=== PATIENT | male | born 1965 | race Caucasian/White ===

== ENCOUNTER 2019-03-24 07:53 | Observation (INO) | payer BC, OTHER ==
[~2019-03-24] VITALS: Ht 170.2 cm; Wt 58.1 kg
[2019-03-24] MEDS ORDERED: IBUP-1114 PO (08:02)
[2019-03-24] MEDS ORDERED: NS 500 ML IV ONE (08:15)
[2019-03-24 08:27] LABS: BASO # 0.1 10^3/uL (0.0-0.2); BASO % 0.8 % (0.0-1.0); EOS # 0.2 10^3/uL (0.0-0.5); EOS % 1.6 % (0.0-3.0); HEMOGLOBIN 16.6 g/dl (13.5-17.5); LYMPH # 1.5 10^3/uL (1.5-5.0); LYMPH % 13.8 % (24.0-44.0); MEAN CORPUSCULAR HEMOGLOBIN 35.9 pg (27.0-33.0); MEAN CORPUSCULAR HGB CONC 36.1 g/dl (32.0-36.5); MEAN CORPUSCULAR VOLUME 99.6 fl (80.0-96.0); MONO # 0.9 10^3/uL (0.0-0.8); MONO % 8.4 % (0.0-5.0); NEUTROPHILS % 75.1 % (36.0-66.0); PLATELET COUNT, AUTOMATED 235 10^3/uL (150-450); RED BLOOD COUNT 4.62 10^6/uL (4.30-6.10); WHITE BLOOD COUNT 10.6 10^3/uL (4.0-10.0)
[2019-03-24] MEDS ORDERED: ISOVUE-370 76% 100ML VIAL (Q9967) As Ordered ONE (08:33)
[2019-03-24 08:37] LABS: INR 0.96; PROTHROMBIN TIME 12.5 SECONDS (11.8-14.0)
[2019-03-24 08:38] LABS: PARTIAL THROMBOPLASTIN TIME 26.4 SECONDS (25.0-38.4)
--- NOTE | 2019-03-24 08:46 | REP ---
Portable chest, 08:17 a.m., single AP view with the patient sitting: There are no comparisons. The lung davis are clear. The cardiac size is normal. The siomara, mediastinum, and skeletal structures are unremarkable. There are surgical clips in the abdominal left upper quadrant. Impression: Negative portable chest. Electronically Signed by Eddie Hou MD 03/24/2019 08:37 A
[2019-03-24 08:57] LABS: ALT/SGPT 16 U/L (12-78); BILIRUBIN,DIRECT < 0.1 MG/DL (0.0-0.2); BILIRUBIN,TOTAL 0.4 MG/DL (0.2-1.0); CPK CREATINE PHOSPHOKINASE 95 U/L (39-308); FREE T4 0.82 NG/DL (0.76-1.46); LIPASE 118 U/L (73-393); TOTAL PROTEIN 6.8 GM/DL (6.4-8.2); TROPONIN I < 0.02 NG/ML (< 0.10)
[2019-03-24 08:59] LABS: CK-MB VALUE MASS 1.2 NG/ML (<3.6); MB/CK RELATIVE INDEX 1.26 (< OR =4)
--- NOTE | 2019-03-24 09:22 | REP ---
CT of the chest with IV contrast , CT pulmonary artery angiography: Comparison is the portable chest performed earlier today. There are no emboli in the pulmonary trunk or central pulmonary arteries. There are no emboli in the pulmonary lobe or segment branches. There are no infiltrates or pleural effusions. There are no masses or nodules. There is no mediastinal, hilar or axillary lymphadenopathy. The thoracic aorta is unremarkable. The cardiac size is normal. There is no pericardial effusion. Impression: There are no pulmonary emboli. Otherwise, negative CT study of the chest. Electronically Signed by Eddie Hou MD 03/24/2019 09:14 A
--- NOTE | 2019-03-24 09:29 | REP ---
CT of the abdomen and pelvis with IV and bowel contrast: There are no comparisons. The patient has history of ruptured spleen. Studies performed. Contiguous with the chest CT this same date. The hepatic parenchyma is homogeneous and unremarkable. The gallbladder and pancreas are unremarkable. Spleen appears normal size, homogeneous and there are perisplenic surgical clips. The adrenals are unremarkable. The kidneys are unremarkable. The abdominal aorta is unremarkable. There is no periaortic adenopathy or mass. There is no bowel distension or obstruction. The bowel is otherwise unremarkable. The mesentery is unremarkable. There is no free fluid. There is no pneumoperitoneum. Pelvis: The appendix and terminal ileum are unremarkable. There is no ascites. There are surgical clips posteriorly on the left. The bladder is unremarkable. The pelvic bowel loops are unremarkable. There is degenerative disc disease in the lumbar spine at L3-4. There are small cyst posteriorly in the iliac wings bilaterally. Impression: There is no free fluid or pneumoperitoneum. The abdominal aorta is unremarkable. Past history of splenic rupture. There are surgical clips adjacent to the spleen. Spleen is otherwise unremarkable. There are surgical clips posteriorly in the pelvis on the left. No bowel distension or obstruction. Solid organs are unremarkable. Otherwise, negative CT of the abdomen and pelvis. Electronically Signed by Eddie Hou MD 03/24/2019 09:21 A
--- NOTE | 2019-03-24 09:48 | REP ---
CT STUDY OF THE BRAIN WITHOUT CONTRAST: HISTORY: Near-syncope, headache, diaphoresis. No comparison study. CT FINDINGS: Digital preliminary meteorology teacher radiograph is unremarkable. Bone window settings demonstrate an intact bony calvarium. There is partial opacification of the right mid ethmoid air cells consistent with a mild sinusitis changes. No intraorbital abnormality is appreciated. On soft tissue window settings, the lateral, third, and fourth ventricles are normal in size and position. Colindres-white differentiation pattern is normal above and below the tentorium. There is no evidence of intracranial hemorrhage. No mass, infarct, or extra-axial fluid collection is seen. No midline shift is observed. IMPRESSION: Mild right ethmoid paranasal sinus disease. Otherwise negative noncontrast head CT. Electronically Signed by Ibrahima Levy MD 03/24/2019 10:00 A
[2019-03-24] MEDS ORDERED: IBUP200C25 PO (11:05)
[2019-03-24] MEDS ORDERED: IBUPROFEN 200 MG TAB PO PRN (12:00)
[2019-03-24 13:10] LABS: CHOLESTEROL LEVEL 211 MG/DL (<200); CHOLESTEROL RISK RATIO 3.296 (<5); HDL CHOLESTEROL 64 MG/DL (>40); LDL CHOLESTEROL 123 MG/DL (<100); NON-HDL-C 147 MG/DL; TRIGLYCERIDES LEVEL 118 MG/DL (<150); TROPONIN I < 0.02 NG/ML (< 0.10)
[2019-03-24] MEDS ORDERED: IBUPROFEN 400 MG TAB PO PRN (15:45)
[2019-03-24 15:47] VITALS: BP 117/63
[2019-03-24 20:00] VITALS: BP 141/67
--- NOTE | 2019-03-24 21:30 | ECGEPIP ---
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
[2019-03-25] VITALS: BP 138/70
[2019-03-25 04:00] VITALS: BP 132/77
[2019-03-25 05:38] LABS: HEMATOCRIT 45.4 % (42.0-52.0); HEMOGLOBIN 15.9 g/dl (13.5-17.5); PLATELET COUNT, AUTOMATED 234 10^3/uL (150-450); RED BLOOD COUNT 4.54 10^6/uL (4.30-6.10); WHITE BLOOD COUNT 8.8 10^3/uL (4.0-10.0)
[2019-03-25 05:59] LABS: BLOOD UREA NITROGEN 15 MG/DL (7-18); CALCIUM LEVEL 9.2 MG/DL (8.5-10.1); CARBON DIOXIDE LEVEL 25 MEQ/L (21-32); CHLORIDE LEVEL 105 MEQ/L (98-107); CREATININE FOR GFR 0.83 MG/DL (0.70-1.30); GLOMERULAR FILTRATION RATE > 60.0 (>56); GLUCOSE, FASTING 87 MG/DL (70-100); POTASSIUM SERUM 4.2 MEQ/L (3.5-5.1); SODIUM LEVEL 138 MEQ/L (136-145)
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
[2019-03-25 08:00] VITALS: BP 132/68
[2019-03-25] MEDS ORDERED: NICOTINE 21MG/24HR 1 EA TRANSDERMAL TD SCH (09:00)
--- NOTE | 2019-03-25 11:34 | DS.PDOC ---
Discharge Summary General Date of Admission Mar 24, 2019 at 07:54 Date of Discharge 03/25/2019 Attending Physician: VITO HERCULES MD Discharge Summary PROCEDURES PERFORMED DURING STAY: None ADMITTING DIAGNOSES: 1. Presyncope DISCHARGE DIAGNOSES: 1. Presyncope undifferentiated 2. Tobacco abuse disorder COMPLICATIONS/CHIEF COMPLAINT: Syncope. HISTORY OF PRESENT ILLNESS: 53-year-old gentleman current smoker with a greater than 20 pack year history, a remote prior history of subjective palpitations s/p unremarkable event monitor results (per patient) and a family history of familial coronary artery disease with both his father and paternal grandfather dying from complications of heart disease in their fifth and sixth decades of life who presented with presyncope experienced after getting up from a chair while eating breakfast that was transient and resolved wit rest without loss of consciousness, chest pain, shortness or breath, headache, vision changes or dizziness or vertigo. The patient described that he was sitting at his breakfast counter in his kitchen watching the news on television and as he stood up from the stool he was sitting on and took one step he immediately became lightheaded and developed flushness and experienced nausea without emesis. He immediately sat down and rested his head on the counter, he assumes for 7-8 minutes with resolution of his symptoms. Once his symptoms had resolved, the patient proceeded to walk to the bathroom. After using the bathroom and getting up from the toilet, the patient once again experienced lightheadedness, became diaphoretic and had an episode of nausea and felt like he was going to pass out. He immediately went and sat down on the counter and once his symptoms resolved he came to the emergency room to be evaluated. HOSPITAL COURSE: In the ED, he was hemodynamically stable, denied any chest discomfort or previous history of syncopal events. He reported that ~15 years ago he had episodes of subjective palpitations and was told to wear an event monitor which he did, however he states that the event monitor never showed that he was having any arrhythmias. He has not been started on any medications recently. His work up revealed normal orthostatic vital signs, an EKG with NSR, negative troponins, normal electrolytes, non contrast CT head without abnormalities, CTA chest without PE or abnormalities, CT abdomen and pelvis without abnormalities, unremarkable CXR and telemetry did not reveal any ectopy. While he has been in the hospital, his symptoms have not recurred and he will now be discharged home with referral to outpatient cardiology for follow up. Of note, we discussed smoking cessation and the increased health risks but patient declined the patch or other cessation aides at this time. DISCHARGE MEDICATIONS: Please see below. ALLERGIES: Please see below. PHYSICAL EXAMINATION ON DISCHARGE: VITAL SIGNS: Please see below. General: NAD HEENT: NCAT, EOMI, PERRLA, anicteric, no pallor. Pulm: CTAB, without rales, wheezing or rhonchi. Heart: RRR, S1, S2, no audible murmurs, rubs or gallops. Abdomen: scaphoid, normoactive bowel sounds, nontender, nondistended, no palpable organomegaly. Extremities: WWP, no cyanosis, clubbing or edema, 2+ DP pulses Neuro: CN 2 -12 grossly intact without any focal neurologic deficits Psych: AO x3, normal affect LABORATORY DATA: Please see below. IMAGIN03/24/2019: CT of the abdomen and pelvis with IV and bowel contrast: The patient has history of ruptured spleen. Studies performed. Contiguous with the chest CT this same date. The hepatic parenchyma is homogeneous and unremarkable. The gallbladder and pancreas are unremarkable. Spleen appears normal size, homogeneous and there are perisplenic surgical clips. The adrenals are unremarkable. The kidneys are unremarkable. The abdominal aorta is unremarkable. There is no periaortic adenopathy or mass. There is no bowel distension or obstruction. The bowel is otherwise unremarkable. The mesentery is unremarkable. There is no free fluid. There is no pneumoperitoneum. Pelvis: The appendix and terminal ileum are unremarkable. There is no ascites. There are surgical clips posteriorly on the left. The bladder is unremarkable. The pelvic bowel loops are unremarkable. There is degenerative disc disease in the lumbar spine at L3-4. There are small cyst posteriorly in the iliac wings bilaterally. Impression: There is no free fluid or pneumoperitoneum. The abdominal aorta is unremarkable. Past history of splenic rupture. There are surgical clips adjacent to the spleen. Spleen is otherwise unremarkable. There are surgical clips posteriorly in the pelvis on the left. No bowel distension or obstruction. Solid organs are unremarkable. Otherwise, negative CT of the abdomen and pelvis. 03/24/2019: CT of the chest with IV contrast , CT pulmonary artery angiography: There are no emboli in the pulmonary trunk or central pulmonary arteries. There are no emboli in the pulmonary lobe or segment branches. There are no infiltrates or pleural effusions. There are no masses or nodules. There is no mediastinal, hilar or axillary lymphadenopathy. The thoracic aorta is unremarkable. The cardiac size is normal. There is no pericardial effusion. Impression: There are no pulmonary emboli. Otherwise, negative CT study of the chest. 03/24/2019: CT STUDY OF THE BRAIN WITHOUT CONTRAST: CT FINDINGS: Digital preliminary diet consultant radiograph is unremarkable. Bone window settings demonstrate an intact bony calvarium. There is partial opacification of the right mid ethmoid air cells consistent with a mild sinusitis changes. No intraorbital abnormality is appreciated. On soft tissue window settings, the lateral, third, and fourth ventricles are normal in size and position. Colindres-white differentiation pattern is normal above and below the tentorium. There is no evidence of intracranial hemorrhage. No mass, infarct, or extra-axial fluid collection is seen. No midline shift is observed. IMPRESSION: Mild right ethmoid paranasal sinus disease. Otherwise negative noncontrast head CT. 03/24/2019: Chest X Ray Negative portable chest. PROGNOSIS: Good ACTIVITY: As tolerated DIET: Regular diet DISCHARGE PLAN: Home with cardiology outpatient referral for completion of pre syncope work up, perhaps an event monitor. DISPOSITION: Home DISCHARGE INSTRUCTIONS: 1. Please follow up with your PCP within 10 days of discharge. I have referred you to be examined by a seafood and service meat manager as an outpatient to investigate your near fainting spell and they may choose to give you an event monitor that would record any rhythm irregularities that may have caused your near fainting spell. ITEMS TO FOLLOWUP ON ON OUTPATIENT: 1.Presyncope - PCP follow up and cardiology outpatient referral (Spoke with Dr. Concepcion who suggested outpatient referral) DISCHARGE CONDITION: Good TIME SPENT ON DISCHARGE: Greater than 30 minutes. Vital Signs/I&Os Vital Signs Date Time Temp Pulse Resp B/P (MAP) Pulse Ox O2 Delivery O2 Flow Rate FiO2 03/25/19 08:00 97.6 78 17 132/68 (89) 98 03/24/19 15:21 Room Air I&O- Last 24 Hours up to 6 AM 03/25/19 05:59 Intake Total 1300 ml Output Total 1050 ml Balance 250 ml Laboratory Data Labs 24H Laboratory Tests 2 03/24/19 12:34: Troponin I < 0.02, Triglycerides Level 118, LDL Cholesterol 123H, Total Ch olesterol 211H, Non-HDL Cholesterol (LDL + VLDL) 147, Total HDL Cholesterol 64, Cholesterol/HDL Ratio 3.296 03/25/19 05:22: Nucleated Red Blood Cells % (auto) 0.0, Anion Gap 8, Glomerular Filtration Rate > 60.0, Blood Urea Nitrogen 15, Creatinine 0.83, Sodium Level 138, Potassium Level 4.2, Chloride Level 105, Carbon Dioxide Level 25, Calcium Level 9.2 CBC/BMP Laboratory Tests 03/25/19 05:22 Red Blood Count 4.54, Mean Corpuscular Volume 100.0 H, Mean Corpuscular Hemoglobin 35.0 H, Mean Corpuscular Hemoglobin Concent 35.0, Red Cell Distribution Width 13.5, Calcium Level 9.2 Microbiology Microbiology 03/24/19 Blood Culture - Preliminary, Resulted No growth after 24 hours . All specim... 03/24/19 Blood Culture - Preliminary, Resulted No growth after 24 hours . All specim... Discharge Medications Scheduled PRN Ibuprofen (Ibuprofen) 200 Mg Capsule, 400 MG PO Q8H PRN for PAIN, (Reported) Allergies Coded Allergies: codeine (Verified Allergy, Unknown, tongue swelling, 03/24/19) VITO HERCULES MD Mar 25, 2019 11:27
[2019-03-25 12:00] VITALS: BP_SYST 132
[2019-03-26] MEDS ORDERED: FLUBLOK(EGG FREE)(QUAD)INFLUENZA VACC 0.5ML SYRINGE (90682)18YRS&OLDER IM ONE (09:00)
--- NOTE | 2019-03-26 19:03 | ECHO ---
DATE OF PROCEDURE: 03/25/2019 AGE: 53 GENDER: Male HEIGHT: 67 inches WEIGHT: 145 pounds BODY SURFACE AREA: 1.77 m2 PATIENT LOCATION: Inpatient, PCU, room 3218 REFERRING PHYSICIAN: Jose R Meyer MD INDICATION: Syncope. 2-D MEASUREMENTS: RV: 3.0 cm LV: 4.1 cm Septum: 0.9 cm Posterior wall: 0.9 cm Aortic root: 2.8 cm LA: 2.6 cm LVEF: 75% DOPPLER MEASUREMENTS: AV: 1.1 m/s LVOT: 1.0 m/s LVOT diameter: 2.0 cm MV-E: 84, A: 69, EA ratio: 1.2 Early mitral deceleration time: 215 ms E prime: 8.1, A prime: 10, E/E prime ratio: 10.4 PV: 0.95 m/s Pulmonary artery acceleration time: 140 ms PASP: 24 mmHg IVC: 1.4 cm COMMENTS Normal sinus rhythm without intraventricular conduction disturbance. M-mode and two-dimensional echocardiography was performed with pulsed, continuous wave, color flow and tissue Doppler studies. Normal left ventricular size, wall thickness and hyperkinetic wall motion. Normal left atrial size and Doppler assessment of LV diastolic function and estimated mean left atrial pressure. Normal right heart chamber sizes and motion and estimated pulmonary arterial pressure. Normal appearing and functioning valvular structures. Normal aortic root size. No apparent intracardiac mass or pericardial effusion. Unable to detect a structural or functional abnormality to account for the patient's syncopal spell.
== END 2019-03-25 14:20 | disposition home or self-care (01) ==
LOC: EDBD 07:53 → M ED 07:53 → M ED INP 07:54 → M PCU 15:28
PROVIDERS: ADMIT Internal Medicine; ATTEND Internal Medicine
DX: R55 Syncope and collapse (principal); F17.210 Nicotine dependence, cigarettes, uncomplicated
CPT/HCPCS: 36415; 70450; 71045; 71275; 74177; 80047; 80048; 80061; 80076; 82550; 82553; 83690; 84439; 84443; 84484; 85025; 85027; 85610; 85730; 87040; 93005; 93041; 93306; 94760; 96360; 99285; Q9967

== ENCOUNTER → 2019-04-28 | Outpatient (CLI) | payer BC ==
[~2019-04-28] MED LIST: IBUP-1114 PO; IBUP200C25 PO
--- NOTE | 2019-04-29 08:46 | REP ---
Clinical: Stenosis . Technique: Colindres scale and color Doppler evaluation using linear high frequency transducer Findings: Two-dimensional colindres scale and color images demonstrate small amount of atheromatous plaque at the carotid bulbs with laminar flow and no appreciable narrowing. Color Doppler interrogation demonstrates normal arterial wave patterns and velocities with no significant spectral broadening. Normal flow direction is appreciated in the bilateral vertebral arteries. RIGHT (cm/s) LEFT (cm/s) ICA peak systolic velocity 83.4 83.5 ICA diastolic velocity 30.7 31.5 ECA peak systolic velocity 97.7 104.0 CCA peak systolic velocity 83.8 111.8 ICA/CCA ratio 1.0 0.75 Impression: No hemodynamically significant areas of narrowing or stenosis appreciated. Based on set standards narrowing falls within the normal/less than 50% range. Electronically Signed by Mike Carlos MD 04/29/2019 08:37 A
== END ==
LOC: M RAD 17:40
PROVIDERS: ATTEND Internal Medicine Cardiovascular Disease
DX: I65.23 Occlusion and stenosis of bilateral carotid arteries (principal)

== ENCOUNTER → 2019-10-28 | Outpatient (CLI) | payer BC ==
[~2019-10-28] MED LIST changes: +ISOVUE-370 76% 100ML VIAL As Ordered ONE
--- NOTE | 2019-10-28 13:54 | REP ---
SOFT-TISSUE CT STUDY OF THE NECK WITH IV CONTRAST: HISTORY: History of malignancy of the left tongue and soft palate, squamous cell carcinoma status post resection in 2015. Complaint of pain. Rule out recurrence. Dysphasia. CT CONTRAST DOSE: 75 mL of intravenous Isovue 370. No comparison soft-tissue neck imaging is available. CT FINDINGS: Digital frontal and lateral table runner images are unremarkable. The tongue soft tissues are somewhat asymmetric, less anterior tongue tissue on the left than is seen on the right consistent with surgical history. Similarly, the soft palate is asymmetric and deficient on the left postop. I do not see a definite mass in the tongue, floor of mouth, or lateral pharyngeal wall. Peritonsillar soft tissues are unremarkable. There is no evidence of cervical lymphadenopathy. Submandibular glands are normal and symmetric. Parotid glands are symmetric and unremarkable. The nasopharynx is unremarkable. No nasal mass lesion is seen. No intraorbital abnormality is noted. No bony destructive lesion is seen in the mandible or maxillary osseous structures. The visualized intracranial structures are unremarkable. The lung apices are clear. There is extensive vascular calcification in the carotid bifurcations bilaterally. IMPRESSION: Postsurgical changes. No mass or adenopathy seen. Electronically Signed by Ibrahima Levy MD 10/28/2019 05:08 P
== END ==
LOC: M RAD 09:31
PROVIDERS: ATTEND Otolaryngology
DX: R13.10 Dysphagia, unspecified (principal); Z85.818 Personal history of malignant neoplasm of other sites of lip, oral cavity, and pharynx
CPT/HCPCS: 70491; Q9967

== ENCOUNTER → 2019-11-04 | Outpatient (CLI) | payer BC ==
[~2019-11-04] MED LIST changes: +E-Z-GAS II EFFERVESCENT PACKET (SODIUM BICARB./CITRIC ACID/SIMETHICONE) As Ordered ONE; +E-Z-HD 98% w/w 340GM SUSP BTL As Ordered ONE; +E-Z-PAQUE 96% w/w SUSP 176GM BTL As Ordered ONE; -ISOVUE-370 76% 100ML VIAL As Ordered ONE
--- NOTE | 2019-11-04 16:39 | REP ---
Esophagram The procedure was performed under the direct supervision of Dr. Colindres. The images were reviewed with Dr. Colindres. A single view PA chest x-ray is submitted as a coordinating producer film. There is no change compared to a previous chest x-ray performed on 03/24/2019. Liquid barium and gas producing granules were given in the erect position as well as liquid barium in the prone oblique positions in order to perform a double contrast esophagram examination. The oral and pharyngeal stages of deglutition are unremarkable. Note is made of bilateral carotid calcifications. Esophageal transport is prompt and efficient and there is no esophagitis, stricture, mucosal ring or hiatal hernia. There is gastroesophageal reflux demonstrated to the level of the eddie. Impression: There is gastroesophageal reflux demonstrated to the level of the eddie. Otherwise unremarkable double contrast esophagram examination. Note is made of bilateral carotid calcifications. 0.6 minutes of fluoro time was utilized for this procedure. Electronically Signed by JAKI Sevilla 11/04/2019 04:28 P Electronically Signed by Eddie Colindres MD 11/04/2019 04:30 P
== END ==
LOC: M RAD 09:53
PROVIDERS: ATTEND Otolaryngology
DX: R13.10 Dysphagia, unspecified (principal); Z85.818 Personal history of malignant neoplasm of other sites of lip, oral cavity, and pharynx; K21.9 Gastro-esophageal reflux disease without esophagitis

== ENCOUNTER → 2020-01-04 | Outpatient (CLI) | payer BC ==
[~2020-01-04] MED LIST changes: -E-Z-GAS II EFFERVESCENT PACKET (SODIUM BICARB./CITRIC ACID/SIMETHICONE) As Ordered ONE; -E-Z-HD 98% w/w 340GM SUSP BTL As Ordered ONE; -E-Z-PAQUE 96% w/w SUSP 176GM BTL As Ordered ONE; +OMEP40CA97 PO
== END ==
LOC: M LABSMTC 11:04
PROVIDERS: ATTEND Anesthesiology
DX: Z03.818 Encounter for observation for suspected exposure to other biological agents ruled out (principal)
CPT/HCPCS: C9803; U0003

== ENCOUNTER 2020-01-07 12:28 | Day surgery (SDC) | payer BC ==
[~2020-01-07] VITALS: Ht 170.2 cm; Wt 57.6 kg
[~2020-01-07 12:28] MED LIST changes: +LIDOCAINE 2% 100MG/5ML SDV (FOR ANES.) As Ordered ONE; +NS 1,000 ML IV ONE; +propofoL 200 MG/20 ML VIAL As Ordered ONE
[2020-01-07] MEDS ORDERED: fentaNYL 100 MCG/2 ML INJECTION (J3010) As Ordered ONE (14:03)
[2020-01-07] MEDS ORDERED: propofoL 200 MG/20 ML VIAL As Ordered ONE (14:16)
[2020-01-07] MEDS ORDERED: PHENYLephrine HCL 500 MCG/5 ML (100MCG/ML) SYRINGE (J2370) As Ordered ONE (14:22)
--- NOTE | 2020-01-07 14:52 | ROOR ---
Patient Name: Tam Jordan Procedure Date: 01/07/2020 1:40 PM Date of : 1965 Age: 54 Room: [facility] Gender: Male Note Status: Finalized Procedure: Upper GI endoscopy Indications: Heartburn, Suspected gastro-esophageal reflux disease Providers: Rickie Moralez MD Referring MD: ALEX Fontenot Requesting Provider: Medicines: Monitored Anesthesia Care Complications: No immediate complications. Procedure: Pre-Anesthesia Assessment: - Prior to the procedure, a History and Physical was performed, and patient medications and allergies were reviewed. The patient is competent. The risks and benefits of the procedure and the sedation options and risks were discussed with the patient. All questions were answered and informed consent was obtained. Patient identification and proposed procedure were verified by the physician, the nurse and the anesthesiologist in the procedure room. Mental Status Examination: alert and oriented. Airway Examination: normal oropharyngeal airway and neck mobility. Respiratory Examination: clear to auscultation. CV Examination: normal. Prophylactic Antibiotics: The patient does not require prophylactic antibiotics. Prior Anticoagulants: The patient has taken no previous anticoagulant or antiplatelet agents. ASA Grade Assessment: II - A patient with mild systemic disease. After reviewing the risks and benefits, the patient was deemed in satisfactory condition to undergo the procedure. The anesthesia plan was to use monitored anesthesia care (MAC). Immediately prior to administration of medications, the patient was re-assessed for adequacy to receive sedatives. The heart rate, respiratory rate, oxygen saturations, blood pressure, adequacy of pulmonary ventilation, and response to care were monitored throughout the procedure. The physical status of the patient was re-assessed after the procedure. The Endoscope was introduced through the mouth, and advanced to the second part of duodenum. The upper GI endoscopy was accomplished without difficulty. The patient tolerated the procedure well. Findings: LA Grade A (one or more mucosal breaks less than 5 mm, not extending between tops of 2 mucosal folds) esophagitis with no bleeding was found in the distal esophagus. Biopsies were taken with a cold forceps for histology. Verification of patient identification for the specimen was done by the physician and nurse using the patient's name, date and medical record number. Estimated blood loss was minimal. Scattered mild inflammation characterized by erythema and granularity was found in the gastric antrum. Biopsies were taken with a cold forceps for Helicobacter pylori testing. The duodenal bulb and second portion of the duodenum were normal. Noted a small polypoid tissue in posterior oropharynx. Impression: - LA Grade A reflux esophagitis. Rule out Chan's esophagus. Biopsied. - Gastritis. Biopsied. - Normal duodenal bulb and second portion of the duodenum. - Noted a small polypoid tissue in posterior oropharynx. Recommendation: - Patient has a contact number available for emergencies. The signs and symptoms of potential delayed complications were discussed with the patient. Return to normal activities tomorrow. Written discharge instructions were provided to the patient. - High fiber diet. - Continue present medications. - Await pathology results. - Follow an antireflux regimen. - Refer to an ENT specialist at appointment to be scheduled. - Telephone GI clinic for pathology results in 1 week. - Return to primary care physician. Rickie Moralez MD Rickie Moralez MD 01/07/2020 2:52:09 PM Electronically signed by Rickie Moralez MD Number of Addenda: 0 Note Initiated On: 01/07/2020 1:40 PM Estimated Blood Loss: Estimated blood loss was minimal.
--- NOTE | 2020-01-07 14:59 | ROOR ---
Patient Name: Tam Jordan Procedure Date: 01/07/2020 1:41 PM Date of : 1965 Age: 54 Room: [facility] Gender: Male Note Status: Finalized Procedure: Colonoscopy Indications: Screening for colorectal malignant neoplasm Providers: Rickie Moralez MD Referring MD: ALEX Fontenot Requesting Provider: Medicines: Monitored Anesthesia Care Complications: No immediate complications. Procedure: Pre-Anesthesia Assessment: - Prior to the procedure, a History and Physical was performed, and patient medications and allergies were reviewed. The patient is competent. The risks and benefits of the procedure and the sedation options and risks were discussed with the patient. All questions were answered and informed consent was obtained. Patient identification and proposed procedure were verified by the physician, the nurse and the anesthesiologist in the procedure room. Mental Status Examination: alert and oriented. CV Examination: normal. Prophylactic Antibiotics: The patient does not require prophylactic antibiotics. Prior Anticoagulants: The patient has taken no previous anticoagulant or antiplatelet agents. ASA Grade Assessment: II - A patient with mild systemic disease. After reviewing the risks and benefits, the patient was deemed in satisfactory condition to undergo the procedure. The anesthesia plan was to use monitored anesthesia care (MAC). Immediately prior to administration of medications, the patient was re-assessed for adequacy to receive sedatives. The heart rate, respiratory rate, oxygen saturations, blood pressure, adequacy of pulmonary ventilation, and response to care were monitored throughout the procedure. The physical status of the patient was re-assessed after the procedure. The Colonoscope was introduced through the anus and advanced to the terminal ileum, with identification of the appendiceal orifice and IC valve. The colonoscopy was performed without difficulty. The patient tolerated the procedure well. The quality of the bowel preparation was fair. The terminal ileum, ileocecal valve, appendiceal orifice, and rectum were photographed. Scope insertion time was 5 minutes. Scope withdrawal time was 12 minutes. The total duration of the procedure was 20 minutes. Findings: The perianal and digital rectal examinations were normal. The terminal ileum appeared normal. Many sessile polyps were found in the recto-sigmoid colon, descending colon, transverse colon, ascending colon and cecum. The polyps were 4 to 15 mm in size. These polyps were removed with a hot snare. Resection and retrieval were complete. Verification of patient identification for the specimen was done by the physician and nurse using the patient's name, date and medical record number. Estimated blood loss was minimal. Non-bleeding external and internal hemorrhoids were found during endoscopy. The hemorrhoids were medium-sized. Impression: - Preparation of the colon was fair. - The examined portion of the ileum was normal. - Many 4 to 15 mm polyps at the recto-sigmoid colon, in the descending colon, in the transverse colon, in the ascending colon and in the cecum, removed with a hot snare. Resected and retrieved. - Non-bleeding external and internal hemorrhoids. Recommendation: - Patient has a contact number available for emergencies. The signs and symptoms of potential delayed complications were discussed with the patient. Return to normal activities tomorrow. Written discharge instructions were provided to the patient. - High fiber diet. - Continue present medications. - Miralax 1 capful (17 grams) in 8 ounces of water PO daily for 3 days. - Await pathology results. - Repeat colonoscopy in 3 months because the bowel preparation was suboptimal and for surveillance of multiple polyps. - Telephone GI clinic for pathology results in 2 weeks. - Return to GI clinic in 3 months. - Return to primary care physician. Rickie Moralez MD Rickie Moralez MD 01/07/2020 2:59:03 PM Electronically signed by Rickie Moralez MD Number of Addenda: 0 Note Initiated On: 01/07/2020 1:41 PM Estimated Blood Loss: Estimated blood loss was minimal.
[2020-01-07 15:16] VITALS: BP 196/96
[2020-02-20] MEDS ORDERED: MAGICMW SSP (10:25)
[2020-03-30] MEDS ORDERED: OMEP-218 PO (13:07)
[2020-03-30] MEDS ORDERED: HYDR-3713 (13:10)
[2020-04-13] MEDS ORDERED: ONDA8TAB8 PO (07:52)
[2020-04-13] MEDS ORDERED: PROC10TA4 PO (07:52)
[2020-04-14] MEDS ORDERED: HYDR-3713 PO (10:26)
[2020-04-20] MEDS ORDERED: ONDA8TAB8 PO (11:23)
[2020-04-20] MEDS ORDERED: PROC10TA4 PO (11:24)
[2020-05-03] MEDS ORDERED: FLUC10TA PO (10:12)
[2020-05-04] MEDS ORDERED: NYST50SS SS (11:10)
[2020-05-12] MEDS ORDERED: HYDR-3713 PO (10:33)
== END 2020-01-07 15:18 | disposition home or self-care (01) ==
LOC: M OPP 12:28
PROVIDERS: ATTEND Internal Medicine Gastroenterology
DX: Z12.11 Encounter for screening for malignant neoplasm of colon (principal); D12.6 Benign neoplasm of colon, unspecified; K64.8 Other hemorrhoids; K21.0 Gastro-esophageal reflux disease with esophagitis; K29.70 Gastritis, unspecified, without bleeding; R12 Heartburn; F17.210 Nicotine dependence, cigarettes, uncomplicated; Z85.810 Personal history of malignant neoplasm of tongue; Z88.5 Allergy status to narcotic agent
CPT/HCPCS: 43239; 45385; 88305; J2370; J3010

== ENCOUNTER → 2020-02-05 | Outpatient (CLI) | payer BC ==
[~2020-02-05] MED LIST changes: +FLUC10TA PO; +HYDR-3713; +HYDR-3713 PO; -LIDOCAINE 2% 100MG/5ML SDV (FOR ANES.) As Ordered ONE; +MAGICMW SSP; -NS 1,000 ML IV ONE; +NYST50SS SS; +OMEP-218 PO; +ONDA8TAB8 PO; +PROC10TA4 PO; -propofoL 200 MG/20 ML VIAL As Ordered ONE
--- NOTE | 2020-03-24 14:33 | ECGEPIP ---
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
== END ==
LOC: M EKG 09:20
PROVIDERS: ATTEND Anesthesiology
DX: Z01.818 Encounter for other preprocedural examination (principal)

== ENCOUNTER → 2020-02-09 | Outpatient (CLI) | payer BC ==
[~2020-02-09] MED LIST changes: +ISOVUE-370 76% 100ML VIAL ONE
== END ==
LOC: M RAD 11:00
PROVIDERS: ATTEND Otolaryngology
DX: R22.1 Localized swelling, mass and lump, neck (principal)
CPT/HCPCS: 70491; Q9967

== ENCOUNTER 2020-02-10 07:55 | Day surgery (SDC) | payer BC ==
[~2020-02-10 07:55] MED LIST changes: -FLUC10TA PO; -HYDR-3713; -HYDR-3713 PO; -ISOVUE-370 76% 100ML VIAL ONE; -MAGICMW SSP; -NYST50SS SS; -OMEP-218 PO; -ONDA8TAB8 PO; -PROC10TA4 PO
[2020-02-10] MEDS ORDERED: dexameTHASONE 4 MG/ML 1ML VIAL (J1100 PER 1MG) ONE (07:58)
[2020-02-10] MEDS ORDERED: SUGAMMADEX SODIUM 500 MG/5 ML VIAL (BRIDION) ONE (07:58)
[2020-02-10] MEDS ORDERED: propofoL 200 MG/20 ML VIAL ONE (07:58)
[2020-02-10] MEDS ORDERED: ACETAMINOPHEN 1000MG 100ML IV BTL (OFIRMEV) (J0131 PER 10MG) ONE (07:58)
[2020-02-10] MEDS ORDERED: LIDOCAINE 2% 100MG/5ML SDV (FOR ANES.) ONE (07:58)
[2020-02-10] MEDS ORDERED: ONDANSETRON 4MG/2ML VIAL ONE (07:58)
[2020-02-10] MEDS ORDERED: ROCURONIUM BROMIDE 50 MG/5 ML VIAL ONE (07:58)
[2020-02-10] MEDS ORDERED: fentaNYL 100 MCG/2 ML INJECTION (J3010) ONE (07:59)
[2020-02-10] MEDS ORDERED: MIDAZOLAM INJ 2MG/2ML VIAL (J2250 PER 1MG) ONE (07:59)
[2020-02-10] MEDS ORDERED: METHYLENE BLUE 0.5% (5MG/ML) 10 ML AMP (PROVAYBLUE) ONE (08:21)
[2020-02-10] MEDS ORDERED: EPINEPHrine 1MG/ML INJ 30ML MD-VIAL ONE (08:21)
[2020-02-10] MEDS ORDERED: ePHEDrine SULFATE 25 MG/5 ML(5MG/ML) SYRINGE ONE (09:07)
[2020-02-10] MEDS ORDERED: PERCOCET 5MG/325MG TAB ONE (10:29)
[2020-02-20] MEDS ORDERED: MAGICMW SSP (10:25)
[2020-03-30] MEDS ORDERED: OMEP-218 PO (13:07)
[2020-03-30] MEDS ORDERED: HYDR-3713 (13:10)
[2020-04-13] MEDS ORDERED: ONDA8TAB8 PO (07:52)
[2020-04-13] MEDS ORDERED: PROC10TA4 PO (07:52)
[2020-04-14] MEDS ORDERED: HYDR-3713 PO (10:26)
[2020-04-20] MEDS ORDERED: ONDA8TAB8 PO (11:23)
[2020-04-20] MEDS ORDERED: PROC10TA4 PO (11:24)
[2020-05-03] MEDS ORDERED: FLUC10TA PO (10:12)
[2020-05-04] MEDS ORDERED: NYST50SS SS (11:10)
[2020-05-12] MEDS ORDERED: HYDR-3713 PO (10:33)
== END 2020-02-10 11:15 | disposition home or self-care (01) ==
LOC: M SDC 07:55
PROVIDERS: ATTEND Otolaryngology
DX: C09.9 Malignant neoplasm of tonsil, unspecified (principal); K21.9 Gastro-esophageal reflux disease without esophagitis; F17.218 Nicotine dependence, cigarettes, with other nicotine-induced disorders; Z88.5 Allergy status to narcotic agent; Z79.899 Other long term (current) drug therapy
CPT/HCPCS: 31536; 88305; 88342; J0131; J1100; J2250; J2405; J3010; Q9968

== ENCOUNTER → 2020-02-20 | Outpatient (CLI) | payer BC ==
[~2020-02-20] MED LIST changes: +FLUC10TA PO; +HYDR-3713; +HYDR-3713 PO; +MAGICMW SSP; +NYST50SS SS; +OMEP-218 PO; +ONDA8TAB8 PO; +PROC10TA4 PO
== END ==
LOC: M ONCR 09:18
PROVIDERS: ATTEND General Practice
DX: C09.9 Malignant neoplasm of tonsil, unspecified (principal)

== ENCOUNTER → 2020-02-24 | Outpatient (CLI) | payer BC ==
--- NOTE | 2020-03-15 11:37 | REP ---
PET CT HISTORY: Squamous cell carcinoma. 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 TECHNIQUE: 56 minutes following the intravenous injection of an 8.36 mCi dose of F18 FDG, PET CT acquisition is acquired from the skull base to the proximal thighs. PET CT FINDINGS: There is asymmetric uptake along the lateral rowland of the pharynx, right more so than left. Maximum standard uptake value in this region on the right is 4.57. Along the hypopharyngeal lateral wall on the right maximum standard uptake value is a little higher, 7.12. This activity is somewhat asymptomatic, but linear in orientation and may be normal variant. There is no evidence of hypermetabolic adenopathy in the neck on either side. Extensive vascular calcification is noted. In the chest, there is no abnormal hilar or mediastinal hypermetabolic aston uptake. There is no abnormal pulmonary parenchymal hypermetabolic uptake. In the abdomen and pelvis, normal hepatic, gastrointestinal, and genitourinary FDG accumulation is seen. 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 There is a focus of uptake along the inferolateral wall of the cecum, which is more avid than the remainder of this patients background gastrointestinal mucosal uptake. There is no evidence of corresponding soft tissue mass on the accompanying CT. Maximum standard uptake value is 7.72 here. No other abdominal or pelvic hypermetabolic activity is seen. Scan is otherwise unremarkable. IMPRESSION: There is asymmetric increased uptake in a linear pattern along the right lateral pharyngeal and hypopharyngeal wall of uncertain significance. A focus of increased uptake is seen in the cecum higher than this patients background gastrointestinal mucosal uptake. Early right colon malignancy cannot be excluded. Otherwise, negative PET CT. ADDENDUM: This study is reviewed in conjunction with a referring radiation oncologist. There is faintly visible aston uptake in a normal sized right anterior jugular lymph node 6 mm in short axis dimension. Maximum standard uptake value in this lymph node is equivocal 2.93. Addendum dictated: MARILEE 02/24/2020 1616 Addendum transcribed: jose 02/29/2020 0935 [id number]
== END ==
LOC: M PLARAD 08:00
PROVIDERS: ATTEND General Practice
DX: C09.9 Malignant neoplasm of tonsil, unspecified (principal)
CPT/HCPCS: 78815; A9552

== ENCOUNTER → 2020-03-28 | Outpatient (CLI) | payer BC | LOC: M LABSMTC 08:19 | PROVIDERS: ATTEND Anesthesiology | DX: Z01.812 Encounter for preprocedural laboratory examination (principal); Z20.828 Contact with and (suspected) exposure to other viral communicable diseases | CPT/HCPCS: C9803; U0003 ==

== ENCOUNTER 2020-03-30 14:02 | Outpatient (RCR) | payer BC ==
[~2020-03-30 14:02] MED LIST changes: -FLUC10TA PO; -HYDR-3713 PO; -NYST50SS SS; -ONDA8TAB8 PO; -PROC10TA4 PO
[2020-04-13] MEDS ORDERED: ONDA8TAB8 PO (07:52)
[2020-04-13] MEDS ORDERED: PROC10TA4 PO (07:52)
[2020-04-14] MEDS ORDERED: HYDR-3713 PO (10:26)
[2020-04-20] MEDS ORDERED: ONDA8TAB8 PO (11:23)
[2020-04-20] MEDS ORDERED: PROC10TA4 PO (11:24)
[2020-05-03] MEDS ORDERED: FLUC10TA PO (10:12)
[2020-05-04] MEDS ORDERED: NYST50SS SS (11:10)
[2020-05-12] MEDS ORDERED: HYDR-3713 PO (10:33)
== END 2020-03-31 ==
LOC: M ONCR 14:02
PROVIDERS: ATTEND General Practice
DX: C09.0 Malignant neoplasm of tonsillar fossa (principal)

== ENCOUNTER 2020-04-30 09:42 | Outpatient (RCR) | payer BC ==
[~2020-04-30 09:42] MED LIST changes: +HYDR-3713 PO; +ONDA8TAB8 PO; +PROC10TA4 PO
[2020-05-03] MEDS ORDERED: FLUC10TA PO (10:12)
[2020-05-04] MEDS ORDERED: NYST50SS SS (11:10)
== END 2020-05-01 ==
LOC: M ONCR 09:42
PROVIDERS: ATTEND General Practice
DX: C09.0 Malignant neoplasm of tonsillar fossa (principal)

== ENCOUNTER → 2020-05-31 | Outpatient (RCR) | payer BC ==
--- NOTE | 2020-05-20 10:34 | RADENCPD ---
Date/Time of Encounter Date of Encounter: May 20, 2020 Time of Encounter: 10:15 Encounter Saw Tam today at his request. He complains of worsening oral pain. On exam he has grade 3 mucositis in the posterior pharynx. No evidence of thrush. He states it is hard to swallow the oxycodone but when he does it is helpful. Therefore I will switch him to liquid oxycodone 10 mg q4h ATC, I encouraged him to take the medication scheduled throughout the day and to take 5-6 ensure clear daily (one between each dose of pain medication) to sustain him. He is nearing completion of his course and these side effects are all anticipated. He agreed with the plan. JAMIL ALONZO MD May 20, 2020 10:34
[~2020-05-31] MED LIST changes: +FLUC10TA PO; +NYST50SS SS; +OXYC-517 PO; +OXYC1SOL3 PO
== END ==
LOC: M ONCR 05-03 09:42
PROVIDERS: ATTEND General Practice
DX: C09.0 Malignant neoplasm of tonsillar fossa (principal)

== ENCOUNTER 2020-06-02 09:42 | Outpatient (RCR) | payer BC | END 2020-07-01 | LOC: M ONCR 09:42 | PROVIDERS: ATTEND General Practice | DX: C09.0 Malignant neoplasm of tonsillar fossa (principal) ==

== ENCOUNTER → 2020-08-23 | Outpatient (CLI) | payer BC ==
[~2020-08-23] MED LIST changes: +FLUC100T PO
--- NOTE | 2020-08-25 15:01 | REP ---
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 COMPARISON: Comparison PET-CT study 24 February 2020.. TECHNIQUE: 1 hour 23 minutes following the intravenous injection of a 15.60 mCi dose of F-18 FDG, three-dimensional PET scintigraphy is acquired from the skull base to the proximal thighs. Triplanar noncontrast CT scanning is acquired through the same anatomic range for attenuation correction, and image registration with scan parameters optimized to minimize radiation exposure to the patient. PET scintigraphy and CT datasets were fused and displayed on a workstation with multiplanar and projection display capability. FINDINGS: In the head and neck soft tissues, the previously noted right anterior cervical lymph node is again seen, 5 mm in short axis dimension, unchanged in size. Minimal FDG accumulation is seen in this lymph node, maximum standard uptake value 2.46. Previously 2.93. Remainder of the previously noted abnormal head and neck hypermetabolic uptake has resolved. Pharyngeal and tonsillar bed FDG accumulation is symmetric and normal. No other aston uptake is seen in the head and neck soft tissues. Bilateral carotid vascular calcification is observed. Today's PET-CT study demonstrates hypermetabolic uptake in a small left kanchan carinal lymph node focus. Maximum standard uptake value is 5.11. The lymph node in question measures 0.7 cm in short axis dimension by 1.3 cm. This hypermetabolic uptake is new compared to the prior study. The lymph node is slightly more prominent. There is less prominent activity in a subcarinal lymph node, maximum SUV value 2.51. There is discernible but non hypermetabolic pulmonary parenchymal uptake in a nodule seen in the left lower lobe. Maximum standard uptake value here is only 1.22 although the nodule is quite small, 3 x 6 mm. The nodule is new when compared with the prior PET-CT study February 24, 2020. No other new pulmonary nodule is appreciated. No other abnormal pulmonary parenchymal FDG accumulation is seen. In the abdomen and pelvis, there are surgical clips adjacent to the spleen. No abnormal hypermetabolic uptake is seen in the abdomen or pelvis. IMPRESSION: 1. Head and neck uptake is improved. There is still discernible uptake in a 5 mm right cervical lymph node, slightly lower SUV 2.46. Head and neck region is otherwise unremarkable. 2. There are new foci of FDG accumulation in the chest with hypermetabolic aston uptake adjacent to the left mainstem bronchus/AP window region of the mediastinum. There is equivocal uptake in a aston focus in the subcarinal region. In addition, there is a new 4 x 6 mm pulmonary nodule in the left lower lobe which shows visible FDG accumulation. <Electronically signed by Jordin Levy > 08/25/20 1310
== END ==
LOC: M PLARAD 09:18
PROVIDERS: ATTEND General Practice
DX: C09.0 Malignant neoplasm of tonsillar fossa (principal)
CPT/HCPCS: 78815; A9552

== ENCOUNTER → 2020-08-27 | Outpatient (CLI) | payer BC ==
--- NOTE | 2020-08-27 11:40 | RADONC ---
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 He completed concurrent chemoradiation 70 Gy in 35 fractions on 06/02/21 he received weekly cisplatin with this. He is seen today following PET-CT which reveals CR in the HN, however there is a concerning new LLL nodule and mediastinal adenopathy requiring further workup. In addition to surveillance, he is also here to receive survivorship care. Diagnosis/Treatment History Oncologic History 2013 left soft palate SCC excised 2014 left tongue SCC excised 2019 developed dysphagia culminating in biopsy of the right tonsil by Dr. Vasquez on 02/10/20 which revealed SCC HPV negative. He underwent PET-CT on 02/24/20 which showed uptake in the right OPX/soft palate and right tonsillar fossa, and a single aston focus in right level II. He underwent definitive chemoradiation 70 Gy in 35 fractions completed 06/02/20 with weekly cisplatin. He had a course complicated by usual mucositis, which was conservatively managed, and thrush. He did not require PEG tube. Recent data: 08/23/20 PET-CT FINDINGS: In the head and neck soft tissues, the previously noted right anterior cervical lymph node is again seen, 5 mm in short axis dimension, unchanged in size. Minimal FDG accumulation is seen in this lymph node, maximum standard uptake value 2.46. Previously 2.93. Remainder of the previously noted abnormal head and neck hypermetabolic uptake has resolved. Pharyngeal and tonsillar bed FDG accumulation is symmetric and normal. No other aston uptake is seen in the head and neck soft tissues. Bilateral carotid vascular calcification is observed. Today's PET-CT study demonstrates hypermetabolic uptake in a small left kanchan carinal lymph node focus. Maximum standard uptake value is 5.11. The lymph node in question measures 0.7 cm in short axis dimension by 1.3 cm. This hypermetabolic uptake is new compared to the prior study. The lymph node is slightly more prominent. There is less prominent activity in a subcarinal lymph node, maximum SUV value 2.51. There is discernible but non hypermetabolic pulmonary parenchymal uptake in a nodule seen in the left lower lobe. Maximum standard uptake value here is only 1.22 although the nodule is quite small, 3 x 6 mm. The nodule is new when compared with the prior PET-CT study February 24, 2020. No other new pulmonary nodule is appreciated. No other abnormal pulmonary parenchymal FDG accumulation is seen. In the abdomen and pelvis, there are surgical clips adjacent to the spleen. No abnormal hypermetabolic uptake is seen in the abdomen or pelvis. IMPRESSION: 1. Head and neck uptake is improved. There is still discernible uptake in a 5 mm right cervical lymph node, slightly lower SUV 2.46. Head and neck region is otherwise unremarkable. 2. There are new foci of FDG accumulation in the chest with hypermetabolic aston uptake adjacent to the left mainstem bronchus/AP window region of the mediastinum. There is equivocal uptake in a aston focus in the subcarinal region. In addition, there is a new 4 x 6 mm pulmonary nodule in the left lower lobe which shows visible FDG accumulation. Survivorship: Test Due Next Last result Notes TSH, T4 6m post-tx, then q1y November 2020 Carotid US q10 y post-tx 2029 Smoking cessation Assess annually if applicable Fall [address] q1y once CR confirmed Pulm workup pending for lung nodule CBC,CMP, Lipids q1y Fall 2020 Interval History Tam is here with his . He was recently fitted for dentures and told by the dentist he has thrush. Has been taking nystatin for this. Rinsing with chlorhexidine. He is eating soft foods, appetite is good, minimal dysphagia, limiting factor has been lack of teeth. He has no neck pain. Some mild tongue pain in recent weeks but not taking pain medication for this. Current Therapy Surveillance Stage [id number] SCC of right tonsil HPV- stage III Social History: Current 1ppd smoker for 30 years Consumes 1-2 beers daily Allergies / Meds Allergies: Coded Allergies: codeine (Verified Allergy, Severe, tongue swelling, 03/30/20) Home Meds Active Scripts Fluconazole (Fluconazole) 100 Mg Tablet, 1 TAB PO DAILY for yeast infection for 21 Days, #22 TAB Take 2 tabs on day 1, then 1 tab daily to complete 21 days Prov:JAMIL ALONZO MD 08/27/20 Ondansetron (Ondansetron Odt) 8 Mg Tab.rapdis, 8 MG PO Q8HP PRN for NAUSEA, #40 TAB 1 Refill Prov:MARIA GUADALUPE PAYAN MD 05/31/20 Oxycodone HCl (Oxycodone HCl) 5 Mg Tablet, 5 MG PO Q4-6HP PRN for painful mucositis radiation MDD 6 tabs, #40 TAB 0 Refills Prov:MARIA GUADALUPE PAYAN MD 05/26/20 Oxycodone HCl (Oxycodone HCl) 5 Mg/5 Ml Solution, 10 ML PO Q4H for mucositis MDD 60ml for 14 Days, #840 ML Prov:JAMIL ALONZO MD 05/20/20 Nystatin (Nystatin Oral Susp) 100,000 Unit/1 Ml Oral.susp, 5 ML SS 5XD for 7 Days, #120 SUSP 3 Refills Prov:MARIA GUADALUPE PAYAN MD 05/04/20 Prochlorperazine Maleate (Prochlorperazine Maleate) 10 Mg Tablet, 10 MG PO Q8HP PRN for NAUSEA, #40 TAB 1 Refill Prov:WILL CLARK MD 04/20/20 Magic Mouthwash (First-Mouthwash Blm) 1 Ea Susp, 15 ML SSP QIDP PRN for MUCOSITIS, #240 ML 5 Refills (Diphenhydramine/maalox/lidocaine 1:1:1) May compound if kit unavailable/not covered by insurance Prov:JAMIL ALONZO MD 02/20/20 Reported Medications Omeprazole (Omeprazole) 20 Mg Capsule.dr, 1 CAP PO DAILY 03/30/20 Discontinued Scripts Fluconazole (Diflucan) 100 Mg Tablet, 100 MG PO ASDIRECTED for 14 Days, #15 TAB Take 200mg 1st day, then 100mg daily for 2 weeks Prov:JAMIL ALONZO MD 05/03/20 Review of Systems Review of Systems Constitutional: Reports: Fatigue; Denies: Chills, Fever Eyes: Denies: Pain, Vision change HEENT: Reports: Sore Throat; Denies: Head Aches, Ear Pain, Dysphagia Skin: Denies: Rash Pulmonary: Denies: Dyspnea, Cough Cardiovascular: Denies: Chest Pain, Palpitations Gastrointestinal: Denies: Nausea, Vomiting, Abdominal Pain Genitourinary: Denies: Dysuria Hematologic: Denies: Bruising Endocrine: Denies: Cold Intolerance Musculoskeletal: Reports: Neck pain; Denies: Back pain Neurological: Denies: Weakness, Numbness Psych: Reports: Mood Normal Physical Examination Vital Signs Ht 67" Wt 122 (from peak 130 lbs) BMI 19 T 98 P 99 RR 18 BP 159/99 O2 99% Pain 0 Fatigue 1 General Exam: Positive: Alert, Cooperative; Negative: No Acute Distress Eye Exam: Positive: PERRLA, Conjunctiva & lids normal, EOMI ENT EXAM: Positive: Mucous membr. moist/pink, Other ENT (Complete oral cavity exam performed: There is florrid thrush on the anterior and dorsal tongue as well as in the buccogingival sulci BL. There are no mucosal lesions or ulceration appreciated. He is edentulous, seuqelae of recent dentrure fitting on mandibular alveoli noted. There are no palpable muscosal, tongue or FOM lesions on bimanual exam. There are post-surgical changes on the ventral tongue. There are no palpable tonsilar, soft palate or tongue base lesions. There is mild trismus. There is preserved laryngeal elevation and crepitus. The BL necks show hyperpigmentation without significant fibrosis. There is no palpable adnopathy in the neck.); Negative: Pharyngeal Edema Neck Exam: Positive: Supple Chest Exam: Positive: Clear to auscultation, Normal air movement Heart Exam: Positive: Rate Normal, Regular Rhythm Abdomen Exam: Positive: Normal bowel sounds, Soft; Negative: Tenderness Extremity Exam: Negative: Edema Skin Exam: Positive: Nl turgor and temperature Neuro Exam: Positive: Normal Gait, Normal Speech, Cranial Nerves 3-12 NL Psych Exam: Positive: Mental status NL Other Physical Findings Laryngoscopy: The patient provided verbal consent to be scoped. Cetacaine was introduced in the right nostril for anesthesia. The scope was inserted but due to copious mucus could not be passed into the nasopharynx. The scope was withdrawn, the patient blew his nose but still felt congested on the right, thus the left nostril was anesthetized and the scope inserted without difficulty to the nasopharynx, the left pharyngeal recess and torus tubarius appeared normal. The scope was passed to the posterior pharyngeal wall which was well hydrated without any adherent mucus. The BL tongue bases were covered in thrush. There are no mucosal lesions. The epiglottis and AE folds are sharp, no blunting, the larynx is freely mobile with phonation, no cord or vestibular lesions. The BL pyriform sinuses were unable to be fully visualized due to pooled secretions. The scope was withdrawn and the patient tolerated the procedure well. Diagnostic and Laboratory Diagnostic Review Radiologic images, relevant labs and pathology reports were personally reviewed and discussed with Mr. Jordan. Assessment and Plan Impression Assessment Mr. 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 He completed concurrent chemoradiation 70 Gy in 35 fractions on 06/02/21 he received weekly cisplatin with this. He is seen today following PET-CT which reveals CR in the HN, however there is a concerning new LLL nodule and mediastinal adenopathy requiring further workup. In addition to surveillance, he is also here to receive survivorship care. He is in complete response in the head and neck on his PET-CT and my exam today. We discussed that no further routine imaging is indicated for the head and neck and that the hallmark of follow up is serial clinical exam. For this I will see him in 3 months time. At that time I will also check TFTs. With respect to the thrush, which is florid despite his compliance with nystatin, I will prescribe 21 days of fluconazole. I have also encouraged him to practice good oral hygiene with salt and soda rinses TID. We also discussed the concerning findings in the lung on PET-CT, which may represent a metachronous second primary NSCLC, in a current smoker, or less likely pulmonary metastasis from his head an neck cancer. I am especially concerned given that the LLL nodule for it's size (<1 cm) is accumulating FDG, there is also an avid AP window node which in this context could be reactive or an early regional aston metastasis from a left sided lung cancer (though the hilar stations appear clear). For further workup I am referring him to Dr Dunne in pulmonology. Performance Status ECOG 0 Plan Follow up in 3 months for ongoing HNC surveillance/survivorship TFTs at next visit Fluconazole 100 mg daily for 21 days Salt and soda rinses TID Referral to Dr. Dunne in pulmonology for evaluation of left lung nodule and lymph nodes Mr. Jordan was encouraged to call with questions or concerns in the interim period. Billing Statement Total time of [54] minutes was spent preparing for the visit [3], obtaining HPI [6], examining the patient [11], reviewing diagnostic tests [10], discussing management options [10], coordinating care [5], and writing this note [9]. JAMIL ALONZO MD Aug 27, 2020 11:29
== END ==
LOC: M ONCR 09:02
PROVIDERS: ATTEND General Practice
DX: C09.0 Malignant neoplasm of tonsillar fossa (principal)

== ENCOUNTER → 2020-09-09 | Outpatient (CLI) | payer BC ==
[2020-09-09 07:38] LABS: BASO # 0.1 10^3/uL (0.0-0.2); BASO % 1.7 % (0.0-1.0); EOS # 0.2 10^3/uL (0.0-0.5); HEMATOCRIT 43.7 % (42.0-52.0); HEMOGLOBIN 15.8 g/dl (13.5-17.5); LYMPH # 0.7 10^3/uL (1.5-5.0); LYMPH % 19.1 % (24.0-44.0); MEAN CORPUSCULAR HGB CONC 36.2 g/dl (32.0-36.5); MEAN CORPUSCULAR VOLUME 99.5 fl (80.0-96.0); MONO # 0.5 10^3/uL (0.0-0.8); MONO % 13.1 % (2.0-8.0); NEUTROPHILS # 2.1 10^3/uL (1.5-8.5); NEUTROPHILS % 59.2 % (36.0-66.0); PLATELET COUNT, AUTOMATED 121 10^3/uL (150-450); RED BLOOD COUNT 4.39 10^6/uL (4.30-6.10); WHITE BLOOD COUNT 3.5 10^3/uL (4.0-10.0)
[2020-09-09 07:41] LABS: BLOOD UREA NITROGEN 3 MG/DL (7-18); CALCIUM LEVEL 9.1 MG/DL (8.5-10.1); CARBON DIOXIDE LEVEL 27 MEQ/L (21-32); CHLORIDE LEVEL 89 MEQ/L (98-107); CREATININE FOR GFR 0.73 MG/DL (0.70-1.30); GLOMERULAR FILTRATION RATE > 60.0 (>56); GLUCOSE, FASTING 75 MG/DL (70-100); SODIUM LEVEL 123 MEQ/L (136-145)
[2020-09-09 07:51] LABS: INR 0.92; PROTHROMBIN TIME 12.5 SECONDS (12.5-14.3)
[2020-09-09 07:52] LABS: PARTIAL THROMBOPLASTIN TIME 30.1 SECONDS (24.2-38.5)
--- NOTE | 2020-09-09 08:28 | REP ---
INDICATION: OTHER NON SPECIFIC ABNORMAL FINDING OF LUNG FIELD-LABS 1ST COMPARISON: 03/24/2019 TECHNIQUE: Axial noncontrast images from the thoracic inlet to the upper abdomen with coronal and sagittal reformations. This CT examination was performed using the following dose reduction techniques: Automated exposure control, adjustment of mA and/or kv according to the patient's size, and use of iterative reconstruction technique. FINDINGS: Lung davis are well aerated and demonstrate very minimal scattered interstitial changes. No acute consolidation, significant nodule, or mass lesion. No pleural effusion. No pneumothorax. Tracheobronchial tree is patent. No significant adenopathy. Atherosclerotic changes to the thoracic aorta and coronary arteries noted without aortic aneurysm or cardiomegaly. No pericardial effusion. Surrounding musculoskeletal structures are intact. IMPRESSION: No acute/significant mediastinal or pleuroparenchymal process. <Electronically signed by Mike Carlos > 09/09/20 [id number]
[2020-09-15 20:17] LABS: ASPERGILLUS FLAVUS ABY Negative (Neg:<1:1); ASPERGILLUS FUMIGATUS ABY Negative (Neg:<1:1); ASPERGILLUS NIGER ABY Negative (Neg:<1:1); BLASTOMYCES ANTIBODY LEVEL Negative (Neg:<1:1); CRYPTOCOCCUS ANTIGEN SER Negative (Negative)
== END ==
LOC: M RAD 06:56
PROVIDERS: ATTEND Internal Medicine Pulmonary Disease
DX: R91.8 Other nonspecific abnormal finding of lung field (principal)

== ENCOUNTER → 2020-09-18 | Outpatient (CLI) | payer BC | LOC: M LABSMTC 10:03 | PROVIDERS: ATTEND Anesthesiology | DX: Z01.812 Encounter for preprocedural laboratory examination (principal); Z20.822 Contact with and (suspected) exposure to COVID-19 ==

== ENCOUNTER 2020-09-22 10:07 | Day surgery (SDC) | payer BC ==
[~2020-09-22] VITALS: Ht 170.2 cm; Wt 53.9 kg
[~2020-09-22 10:07] MED LIST changes: +ALBUTEROL SULFATE 2.5 MG/0.5 ML INH NEB SOLN NEB ONE; +LIDOCAINE 1% MDV 20ML VIAL SQ PRN; +LIDOCAINE 4% INJ 5ML AMP NEB ONE; +LR 1,000 ML IV ONE
[2020-09-22] MEDS ORDERED: dexameTHASONE 4 MG/ML 1ML VIAL (J1100 PER 1MG) As Ordered ONE (10:34)
[2020-09-22] MEDS ORDERED: propofoL 200 MG/20 ML VIAL As Ordered ONE (10:34)
[2020-09-22] MEDS ORDERED: ROCURONIUM BROMIDE 50 MG/5 ML VIAL As Ordered ONE (10:34)
[2020-09-22] MEDS ORDERED: ONDANSETRON 4MG/2ML VIAL As Ordered ONE (10:34)
[2020-09-22] MEDS ORDERED: LIDOCAINE 2% 100MG/5ML SDV (FOR ANES.) As Ordered ONE (10:34)
[2020-09-22] MEDS ORDERED: MIDAZOLAM INJ 2MG/2ML VIAL (J2250 PER 1MG) As Ordered ONE (10:34)
[2020-09-22] MEDS ORDERED: fentaNYL 100 MCG/2 ML INJECTION (J3010) As Ordered ONE (10:35)
[2020-09-22 11:07] LABS: HEMATOCRIT 45.1 % (42.0-52.0); HEMOGLOBIN 16.4 g/dl (13.5-17.5); MEAN CORPUSCULAR HGB CONC 36.4 g/dl (32.0-36.5); MEAN CORPUSCULAR VOLUME 99.1 fl (80.0-96.0); PLATELET COUNT, AUTOMATED 162 10^3/uL (150-450); RED BLOOD COUNT 4.55 10^6/uL (4.30-6.10); WHITE BLOOD COUNT 3.4 10^3/uL (4.0-10.0)
[2020-09-22] MEDS ORDERED: CETACAINE SPRAY 5GM As Ordered ONE (11:09)
[2020-09-22] MEDS ORDERED: EPINEPHrine 1MG/10ML SYRINGE 1.5IN As Ordered ONE (11:09)
[2020-09-22] MEDS ORDERED: THROMBIN SOLN 5,000 UNITS VIAL As Ordered ONE (11:09)
[2020-09-22] MEDS ORDERED: LIDOCAINE 1% SDV 30ML VIAL As Ordered ONE (11:09)
[2020-09-22] MEDS ORDERED: SEVOFLURANE INHAL SOLN 250 ML BTL As Ordered ONE (11:15)
[2020-09-22 11:28] LABS: BLOOD UREA NITROGEN 4 MG/DL (7-18); CALCIUM LEVEL 9.5 MG/DL (8.5-10.1); CARBON DIOXIDE LEVEL 27 MEQ/L (21-32); CHLORIDE LEVEL 91 MEQ/L (98-107); CREATININE FOR GFR 0.65 MG/DL (0.70-1.30); GLOMERULAR FILTRATION RATE > 60.0 (>56); GLUCOSE, FASTING 72 MG/DL (70-100); POTASSIUM SERUM 3.8 MEQ/L (3.5-5.1); SODIUM LEVEL 126 MEQ/L (136-145)
[2020-09-22] MEDS ORDERED: SUGAMMADEX SODIUM 500 MG/5 ML VIAL (BRIDION) As Ordered ONE (12:19)
[2020-09-22] MEDS ORDERED: LR 1,000 ML IV SCH (12:55)
[2020-09-22] MEDS ORDERED: ONDANSETRON 4MG/2ML VIAL IV PRN (12:55)
[2020-09-22] MEDS ORDERED: fentaNYL 100 MCG/2 ML INJECTION (J3010) IV PRN (12:55)
[2020-09-22] MEDS ORDERED: METOCLOPRAMIDE INJ 10MG/2ML VIAL (J2765 PER 1) IV PRN (12:55)
--- NOTE | 2020-09-22 13:07 | REP ---
INDICATION: POST OP IN PACU 4. COMPARISON: 03/24/2019, CT 09/09/2020. TECHNIQUE: SINGLE PORTABLE AP VIEW OF THE CHEST WAS PERFORMED. FINDINGS: There is no acute infiltrate or pneumothorax. The heart mediastinum are within normal limits. Metallic clips are seen beneath the left hemidiaphragm. IMPRESSION: No acute infiltrate or pneumothorax. <Electronically signed by Eddie Colindres > 09/22/20 [id number]
[2020-09-22 14:10] VITALS: BP 143/71
--- NOTE | 2020-09-23 09:17 | ECGEPIP ---
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
--- NOTE | 2020-10-04 08:57 | ROOR ---
Patient Name: Tam Jordan Procedure Date: 09/22/2020 11:17 AM Date of : 1965 Admit Type: Outpatient Age: 54 Note Status: Finalized Attending MD: Alba Benavidez MD Procedure: Bronchoscopy Indications: Left lower lobe nodule, Mediastinal adenopathy, Paratracheal adenopathy Providers: Alba Benavidez MD (Doctor) Referring MD: Hugo Skelton Md (Referring MD) Requesting Physician: Medicines: Cetacaine topical, Lidocaine 4% via nebulizer with Albuterol 2.5 mg, General Anesthesia Complications: No immediate complications. Estimated blood loss: Minimal Procedure: Pre-Anesthesia Assessment: - Prior to the procedure, a History and Physical was performed, and patient medications and allergies were reviewed. The patient's tolerance of previous anesthesia was also reviewed. The risks and benefits of the procedure and the sedation options and risks were discussed with the patient. All questions were answered, and informed consent was obtained. Prior Anticoagulants: The patient has taken no previous anticoagulant or antiplatelet agents. ASA Grade Assessment: II - A patient with mild systemic disease. After reviewing the risks and benefits, the patient was deemed in satisfactory condition to undergo the procedure. - Patient identification and proposed procedure were verified prior to the procedure by the physician, the nurse, the anesthesiologist, the production boring machine operator and the auto brake technician. The procedure was verified in the procedure room. The Bronchoscope was introduced through the mouth, via the endotracheal tube (the patient was intubated for the procedure) and advanced to the tracheobronchial tree of both lungs. The procedure was accomplished without difficulty. The patient tolerated the procedure well. Findings: The endotracheal tube is in good position. The visualized portion of the trachea is of normal caliber. The eddie is sharp. The tracheobronchial tree was examined to at least the first subsegmental level. Bronchial mucosa and anatomy are normal; there was scattered mucosal pitting and webbing. There are no endobronchial lesions, and few mucoid secretions. An endobronchial ultrasound endoscope was utilized in order to assist with fine needle aspiration in the left paratracheal area and in the subcarinal area. Transbronchial needle aspirations of lymph nodes were performed in the left paratracheal area and in the subcarinal area using an Olympus EBUS-TBNA 21 gauge needle and sent for routine cytology and flow cytometry. The procedure was guided by ultrasound. Rapid on site cytopathologist confirmed adequate diagnostic sample with EBUS and so [place] robotic bronchoscopy was not performed to the left lower lobe nodule. Impression: - Left lower lobe nodule - Mediastinal adenopathy - Paratracheal adenopathy - The airway examination was normal. - Endobronchial ultrasound was performed. - A transbronchial needle aspiration was performed. Recommendation: - Await test results. Procedure Code(s): --- Professional --- 38458, Bronchoscopy, rigid or flexible, including fluoroscopic guidance, when performed; with transbronchial needle aspiration biopsy(s), trachea, main stem and/or lobar bronchus(i) 80317, Bronchoscopy, rigid or flexible, including fluoroscopic guidance, when performed; with transendoscopic endobronchial ultrasound (EBUS) during bronchoscopic diagnostic or therapeutic intervention(s) for peripheral lesion(s) (List separately in addition to code for primary procedure[s]) CPT copyright 2019 [employer]. All rights reserved. The codes documented in this report are preliminary and upon multiple wire sawyer review may be revised to meet current compliance requirements. Attending Participation: I personally performed the entire procedure. Alba Benavidez MD 10/04/2020 8:56:24 AM Number of Addenda: 0 Note Initiated On: 09/22/2020 11:17 AM
== END 2020-09-22 14:10 | disposition home or self-care (01) ==
LOC: M SDC 10:07
PROVIDERS: ATTEND Internal Medicine Pulmonary Disease
DX: C77.1 Secondary and unspecified malignant neoplasm of intrathoracic lymph nodes (principal); R91.8 Other nonspecific abnormal finding of lung field; K21.9 Gastro-esophageal reflux disease without esophagitis; Z85.810 Personal history of malignant neoplasm of tongue; Z87.891 Personal history of nicotine dependence; Z92.21 Personal history of antineoplastic chemotherapy; Z92.3 Personal history of irradiation; Z88.5 Allergy status to narcotic agent; Z79.899 Other long term (current) drug therapy
CPT/HCPCS: 31654; 36415; 71045; 80048; 85027; 88173; 88305; 88341; 88342; 93005; J1100; J2250; J2405; J3010; S2900

== ENCOUNTER → 2020-10-04 | Outpatient (CLI) | payer BC ==
[~2020-10-04] MED LIST changes: -ALBUTEROL SULFATE 2.5 MG/0.5 ML INH NEB SOLN NEB ONE; -LIDOCAINE 1% MDV 20ML VIAL SQ PRN; -LIDOCAINE 4% INJ 5ML AMP NEB ONE; -LR 1,000 ML IV ONE; +PROHANCE 279.3MG/ML 15ML VIAL As Ordered ONE
--- NOTE | 2020-10-04 16:24 | REP ---
INDICATION: LUNG CANCER. COMPARISON: None. TECHNIQUE: Axial T1, T2, FLAIR and diffusion-weighted images obtained. Multiplanar T1 pre and postcontrast images obtained. FINDINGS: No acute bleed or infarct. Ventricles, cisterns and sulci within normal limits. No mass effect or midline shift. No abnormal fluid collections. On the FLAIR images, there are a few scattered nonspecific white matter changes of small vessel ischemic disease. Paranasal sinuses and mastoid air cells are clear. On the review of post-contrast images, no definite abnormal enhancement. A focus of questionable abnormal enhancement in the deep left frontal lobe, (image 15 series 701) may also be present on the coronal images, (image 7 series 901). This suspicion is not confirmed on the FLAIR images however as there is no FLAIR hyperintensity clearly identified in this region. IMPRESSION: No definite findings consistent with a history of lung cancer. Questionable focus of abnormal enhancement as described above, given history, could be suspicious for an early metastatic focus. Follow-up recommended. <Electronically signed by Varghese Ye > 10/04/20 [id number]
== END ==
LOC: M RAD 14:02
PROVIDERS: ATTEND General Practice
DX: C34.32 Malignant neoplasm of lower lobe, left bronchus or lung (principal)
CPT/HCPCS: 70553; A9576

== ENCOUNTER → 2020-10-05 | Outpatient (CLI) | payer BC ==
[~2020-10-05] MED LIST changes: +CIPR750T2 PO; -PROHANCE 279.3MG/ML 15ML VIAL As Ordered ONE
--- NOTE | 2020-10-05 12:08 | RADONC ---
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 He completed concurrent chemoradiation 70 Gy in 35 fractions on 06/02/21 he received weekly cisplatin with this. He had a suspicious LLL nodule and mediastinal adenopathy on his response assessment PET- CT from 08/23/20. He underwent EBUS biopsy for this on 09/22/20 and pathology retu rned SCLC. 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 Diagnosis/Treatment History Oncologic History 2013 left soft palate SCC excised 2014 left tongue SCC excised 2019 developed dysphagia culminating in biopsy of the right tonsil by Dr. Vasquez on 02/10/20 which revealed SCC HPV negative. He underwent PET-CT on 02/24/20 which showed uptake in the right OPX/soft palate and right tonsillar fossa, and a single aston focus in right level II. [id number] stage III. He underwent definitive chemoradiation 70 Gy in 35 fractions completed 06/02/20 with weekly cisplatin. He had a course complicated by usual mucositis, which was conservatively managed, and thrush. He did not require PEG tube. 08/23/20 PET-CT showing CR in the HN. 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 Not conclusive for metastases. Survivorship: Test Due Next Last result Notes TSH, T4 6m post-tx, then q1y November 2020 Carotid US q10 y post-tx 2029 Smoking cessation Assess annually if applicable Fall [address] q1y once CR confirmed Treatment for SCLC pending CBC,CMP, Lipids q1y Fall 2020 Interval History Tam is eating and drinking without difficulty. His appetite is good. He has no chest pain. He is not working currently. Current Therapy Chemoradiation pending Stage OPX [id number] stage III SCC (remission) LLL [id number] stage IIIA SCLC (LS) Social History: Current 1ppd smoker for 30 years Consumes 1-2 beers daily Allergies / Meds Allergies: Coded Allergies: codeine (Verified Allergy, Severe, tongue swelling, 09/22/20) Home Meds Reported Medications Omeprazole (Omeprazole) 20 Mg Capsule.dr, 1 CAP PO DAILY 03/30/20 Review of Systems Review of Systems Constitutional: Reports: Fatigue; Denies: Chills, Fever, Weight Loss Eyes: Denies: Pain HEENT: Reports: Post Nasal Drip; Denies: Head Aches, Dysphagia, Sore Throat Skin: Denies: Rash Pulmonary: Denies: Dyspnea, Cough Cardiovascular: Denies: Chest Pain, Palpitations Gastrointestinal: Denies: Nausea, Abdominal Pain Hematologic: Denies: Bruising Endocrine: Denies: Cold Intolerance Musculoskeletal: Denies: Neck pain, Back pain Neurological: Denies: Weakness, Numbness Psych: Reports: Mood Normal Physical Examination Vital Signs Wt 120 lbs T 98 P 96 RR 18 BP 162/92 Pain 0 Fatigue 1 General Exam: Positive: Alert, Cooperative, No Acute Distress Eye Exam: Positive: PERRLA, EOMI ENT EXAM: Positive: Mucous membr. moist/pink, Tongue Midline; Negative: Other ENT (Stable soft palate defect, no mucosal lesions noted. No thrush. No palpable cervical adenopathy. Post radiation fibrosis BL necks) Neck Exam: Positive: Supple Chest Exam: Positive: Clear to auscultation, Normal air movement Heart Exam: Positive: Rate Normal, Regular Rhythm Abdomen Exam: Positive: Soft; Negative: Tenderness Extremity Exam: Negative: Edema Skin Exam: Positive: Nl turgor and temperature Neuro Exam: Positive: Normal Gait, Normal Speech, Cranial Nerves 3-12 NL Psych Exam: Positive: Mental status NL Diagnostic and Laboratory Diagnostic Review Radiologic images, relevant labs and pathology reports were personally reviewed and discussed with Mr. Jordan. Assessment and Plan Impression Assessment Mr. 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 He completed concurrent chemoradiation 70 Gy in 35 fractions on 06/02/21 he received weekly cisplatin with this. He had a suspicious LLL nodule and mediastinal adenopathy on his response assessment PET- CT from 08/23/20. He underwent EBUS biopsy for this on 09/22/20 and pathology returned SCLC. 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 He has LS disease, which has been detected early as an incidental finding on his post chemoradiation PET-CT. MRI head is negative. He has discussed chemotherapy with Dr. Spivey and agreed to proceed in the coming weeks. They have selected carboplatin-based doublet given he had significant myelosuppression with cisplatin previously. I recommend early integration of radiation with cycle 1 of chemotherapy, given the small RT targets, there will be no advantage to starting with cycle 2. I will give 60 Gy in 30 fractions with VMAT due to the proximity of the aston varun en to the esophagus. I will use a 4D simulation approach to limit normal lung dose. We discussed the side effects of thoracic RT including fatigue, pneumonitis and esophagitis. Simulation can occur this week or next. We also reviewed the indication for PCI if post chemotherapy MRI head remains negative, versus MRI surveillance. We will cross that bridge when we come to it. He agreed to proceed. He is scheduled for a FNA of the right neck with Dr. Vasquez tomorrow. I think this is of minimal concern given the PET-CT and small size of the node. If however it returns positive for SCC, I do not think he should undergo immediate resection given the oncologic priority of the SCLC. I will review the findings and discuss with Dr. Vasquez if needed. Performance Status ECOG 0 Plan Concurrent chemoradiation for new LS SCLC Simulation in the next week Will follow up FNA of right neck Will continue clinical surveillance of HNC for now, no additional imaging warranted at this time Mr. Jordan was encouraged to call with questions or concerns in the interim period. Billing Statement Total time of [38] minutes was spent preparing for the visit [3], obtaining HPI [4], examining the patient [4], reviewing diagnostic tests [3], discussing management options [13], coordinating care [3], and writing this note [8]. JAMIL ALONZO MD Oct 05, 2020 12:08
== END ==
LOC: M ONCR 08:51
PROVIDERS: ATTEND General Practice
DX: C09.9 Malignant neoplasm of tonsil, unspecified (principal); C79.31 Secondary malignant neoplasm of brain; R59.9 Enlarged lymph nodes, unspecified; F17.210 Nicotine dependence, cigarettes, uncomplicated

== ENCOUNTER → 2020-10-06 | Outpatient (CLI) | payer BC ==
[~2020-10-06] MED LIST changes: -CIPR750T2 PO; +LIDOCAINE 1% MDV 20ML VIAL As Ordered ONE
[2020-10-06 11:04] VITALS: BP 175/94
--- NOTE | 2020-10-06 18:07 | REP ---
INDICATION: RT NECK MASS. COMPARISON: None. TECHNIQUE: The procedure was performed under the direct supervision of Dr. Colindres. The patient has a history of a 5 mm right cervical lymph node which is hypermetabolic on a previous PET scan performed on 08/23/2020. The risks and benefits of the procedure were explained to the patient and informed consent was obtained. The right cervical lymph node was localized using ultrasound guidance. The skin was prepped and draped in a sterile fashion. 1% lidocaine was used as a local anesthetic. Using ultrasound guidance 4 fine-needle aspirations were obtained using 25 gauge needles. The patient tolerated the procedure well and there were no immediate complications. After the appropriate amount of monitor convalescence the patient was discharged from the department. FINDINGS: None IMPRESSION: Ultrasound-guided right cervical lymph node biopsy <Electronically signed by Devin Santos > 10/06/20 1614 <Electronically signed by Eddie Colindres > 10/06/20 [id number]
== END ==
LOC: M IRPRO 10:22
PROVIDERS: ATTEND Otolaryngology
DX: R59.0 Localized enlarged lymph nodes (principal); C09.9 Malignant neoplasm of tonsil, unspecified

== ENCOUNTER → 2020-10-21 | Outpatient (CLI) | payer BC ==
[~2020-10-21] MED LIST changes: +MIDAZOLAM INJ 2MG/2ML VIAL (J2250 PER 1MG) As Ordered ONE; +ceFAZolin 1GM VIAL (J0690 PER 500MG) As Ordered ONE; +diphenhydrAMINE 50MG/ML VIAL (J1200) As Ordered ONE; +fentaNYL 100 MCG/2 ML INJECTION (J3010) As Ordered ONE
--- NOTE | 2020-10-21 07:09 | IRHP ---
[facility] IR Pre-Procedure H & P General Date of Service: Oct 21, 2020 Procedure: Same Day Surgery Interval History and Physical I have seen the patient and reviewed last H & P performed within 30 days. There is no significant interval change. History of Present Illness Chief Complaint The patient is a 55-year-old male admitted with a reason for visit of Palate.tongue Cancer. PRE-PROCEDURE DIAGNOSIS: Head and neck cancer HEART: normal rate. LUNGS: normal breathing at rest. ASA Classification ASA Classification: III-Severe systemic dis. Mallampati Score: II NPO: Yes Problems with prior sedation: No Obstructive Sleep Apnea: No Plan moderate sedation Allergies Coded Allergies: codeine (Verified Allergy, Severe, tongue swelling, 09/22/20) Home Medications Scheduled Omeprazole (Omeprazole), 1 CAP PO DAILY, (Reported) ELSIE NEWMAN MD Oct 21, 2020 07:09
[2020-10-21 10:10] VITALS: BP 148/80
--- NOTE | 2020-10-22 10:11 | IRPON ---
IR Postoperative Note Date Of Procedure: Oct 21, 2020 Time Of Procedure: 16:00 IR Postoperative Note IR Ultrasound and fluoroscopy guided port placement. IR Ultrasound of the neck. IR Moderate sedation. Clinical indication: Head and neck cancer. Physician: Dr. Sharma. Procedure: The patient was advised of the benefits, risks, and alternatives of the procedure and informed consent was obtained. A time-out was performed with verification of the patient's name, MRN, site of procedure and type of procedure to be performed. The patient was positioned in the supine position on the angiographic table. The site was prepped and draped in the usual sterile fashion. Moderate sedation was performed by the physician including the presence of an independent trained RN who assisted and monitored the patient's level of consciousness and physiologic status. Following the administration of fentanyl and Versed , the physician spent 45 minutes of continuous face to face time with the patient. Ultrasound of the neck reveals a patent and compressible right internal jugular vein. A rehabilitation clerk radiograph reveals no gross abnormality. The neck and anterior chest wall were anesthetized with lidocaine. The right internal jugular vein was accessed using a microintroducer needle under ultrasound guidance, via a lateral approach. An 018 wire was advanced into the superior vena cava, the needle was removed and a microsheath was placed. An Amplatz wire was then passed into the inferior vena cava. An incision at the internal jugular vein access site and anterior chest wall were made using a scalpel. An incision was made at the anterior chest wall. A small pocket was created using a combination of blunt and sharp dissection. A tunneling device was then used to pass the catheter from the pocket to the neck puncture site. An 8- [place] [employer] Smart power port was then positioned in the pocket. The catheter was then measured and cut. The introducer sheath was exchanged for a peel-away sheath. The catheter was passed through the peel-away sheath into the internal jugular vein and the peel-away sheath was removed. The port tip was positioned at the cavoatrial junction. The port was then accessed with a Vargas needle. The port flushes and aspirates well. The puncture site in the neck was closed. The chest wall incision was then closed with 2-0 Vicryl and 4-0 Monocryl. Glue and Steri- Strips were applied. A sterile dressing was then applied. The patient tolerated the procedure well and was returned to the PRU in stable condition. Estimated blood loss: <5 ml. Complications: None. Conclusion: 1. Successful placement of an 8-[place] [employer] Smart power port via the right internal jugular vein. The port is ready for immediate use. 2. Patient to follow up in IR clinic in 2 weeks. Thank you for this referral. ELSIE SHARMA MD Oct 22, 2020 10:11
== END ==
LOC: M IRPRO 06:48
PROVIDERS: ATTEND Radiology Diagnostic Radiology
DX: C05.9 Malignant neoplasm of palate, unspecified (principal); C02.9 Malignant neoplasm of tongue, unspecified; Z88.5 Allergy status to narcotic agent
CPT/HCPCS: 36561; 99152; 99153; C1769; C1788; C1894; J0690; J1200; J1642; J1644; J2250; J3010

== ENCOUNTER → 2020-10-29 | Outpatient (RCR) | payer BC ==
[~2020-10-29] MED LIST changes: -LIDOCAINE 1% MDV 20ML VIAL As Ordered ONE; -MIDAZOLAM INJ 2MG/2ML VIAL (J2250 PER 1MG) As Ordered ONE; -ceFAZolin 1GM VIAL (J0690 PER 500MG) As Ordered ONE; -diphenhydrAMINE 50MG/ML VIAL (J1200) As Ordered ONE; -fentaNYL 100 MCG/2 ML INJECTION (J3010) As Ordered ONE
== END ==
LOC: M ONCR 10-13 14:01
PROVIDERS: ATTEND General Practice
DX: C34.32 Malignant neoplasm of lower lobe, left bronchus or lung (principal)

== ENCOUNTER → 2020-11-16 | Outpatient (POV) | payer BC ==
[~2020-11-16] VITALS: Ht 170.2 cm; Wt 51.3 kg
[~2020-11-16] MED LIST changes: +CIPR750T2 PO
[2020-11-16 08:20] VITALS: BP 150/86
--- NOTE | 2020-11-17 08:33 | IRPN ---
[facility] IR Progress Note IR Progress Note DATE: November 16, 2020 FOLLOW-UP: Status post port placement. Patient states port site feels good. No pain, no fevers, no chills. Patient reports the port has been used without any issues. ON EXAMINATION: Port site appears to be healing well. Dermabond and Steri-Strips are still in place. No redness, tenderness or fluctuance at site. IMPRESSION: Doing well status post port placement. No further follow-up scheduled unless initiated by patient and/or referring provider. Thank you for this referral Allergies Coded Allergies: codeine (Verified Allergy, Severe, tongue swelling, 09/22/20) VS,Fishbone, I+O VS, Fishbone, I+O Vital Signs Date Time Temp Pulse Resp B/P (MAP) Pulse Ox O2 Delivery O2 Flow Rate FiO2 11/16/20 08:20 98.2 95 20 150/86 (107) 100 Room Air ELSIE NEWMAN MD November 17, 2020 08:33
== END ==
LOC: M IRPOV 08:14
PROVIDERS: ATTEND Radiology Diagnostic Radiology
DX: Z45.2 Encounter for adjustment and management of vascular access device (principal)

== ENCOUNTER 2020-11-26 08:46 | Outpatient (RCR) | payer BC ==
--- NOTE | 2020-11-23 10:14 | RADENCPD ---
Date/Time of Encounter Date of Encounter: November 23, 2020 Time of Encounter: 10:13 Encounter Tam is euthyroid per labs from today. Will check TFTs again in survivorship phase of care, next in 6 months. JAMIL ALONZO MD November 23, 2020 10:14
[2020-11-30] MEDS ORDERED: OXYC1SOL3 PO (09:42)
[2020-12-02] MEDS ORDERED: SUCR1ORA PO (15:47)
== END 2020-11-29 ==
LOC: M ONCR 08:46
PROVIDERS: ATTEND General Practice
DX: C34.32 Malignant neoplasm of lower lobe, left bronchus or lung (principal)

== ENCOUNTER → 2020-12-03 | Outpatient (CLI) | payer BC ==
[~2020-12-03] VITALS: Ht 170.2 cm; Wt 49.6 kg
[~2020-12-03] MED LIST changes: +MORP-69 PO; +OMEP40CA4 PO; -OMEP40CA97 PO; +SUCR1ORA PO
[2020-12-03 08:00] VITALS: BP 105/70
== END ==
LOC: M ONCM 07:58
PROVIDERS: ATTEND General Practice
DX: C76.0 Malignant neoplasm of head, face and neck (principal); C02.9 Malignant neoplasm of tongue, unspecified; C34.92 Malignant neoplasm of unspecified part of left bronchus or lung; C77.9 Secondary and unspecified malignant neoplasm of lymph node, unspecified; F17.210 Nicotine dependence, cigarettes, uncomplicated; R13.10 Dysphagia, unspecified; K20.90 Esophagitis, unspecified without bleeding; Z79.899 Other long term (current) drug therapy; Z88.5 Allergy status to narcotic agent; Z92.21 Personal history of antineoplastic chemotherapy; Z92.3 Personal history of irradiation

== ENCOUNTER 2020-12-07 09:00 | Outpatient (RCR) | payer BC ==
--- NOTE | 2020-12-02 15:46 | RADENCPD ---
Date/Time of Encounter Date of Encounter: Dec 02, 2020 Time of Encounter: 15:44 Encounter Tam complains of worsening dysphagia today, has pain with swallowing, oxycodone 5 mg minimally effective, struggling with liquids, also feels reflux symptoms worse. VS WNL I discussed increasing his omeprazole to 40 mg daily as well as doubling the dose of liquid oxycodone from 5 to 10 mg QID PRN tonight, if this is not effective we can consider another agent. I will also prescribe carafate and see if this is covered by insurance, if not then he can do pepto bismol or maalox QID instead. I also will arrange 2L IVF tomorrow for him. JAMIL ALONZO MD Dec 02, 2020 15:46
[2020-12-03 08:00] VITALS: BP 105/70
[2020-12-03] MEDS: NS 1,000 ML IV SCH ×2 (09:07→10:04)
[2020-12-03 10:15] VITALS: BP_SYST 112; BP_SYST 68; BP_DIAS 68
[2020-12-03 11:50] VITALS: BP 127/78
[~2020-12-07] VITALS: Ht 170.2 cm; Wt 49.6 kg
[~2020-12-07 09:00] MED LIST changes: +SODIUM CHLORIDE 0.9% INJ 10 ML SYR IV PRN
[2020-12-21] MEDS ORDERED: OXYC1SOL3 PO ×2 (10:12→13:09)
== END 2020-12-29 ==
LOC: M ONCR 09:00
PROVIDERS: ATTEND General Practice
DX: Z51.0 Encounter for antineoplastic radiation therapy (principal); C34.32 Malignant neoplasm of lower lobe, left bronchus or lung
CPT/HCPCS: 77336; 77386; J1642

== ENCOUNTER → 2021-02-07 | Outpatient (CLI) | payer BC ==
[~2021-02-07] MED LIST changes: -FLUC100T PO; +FLUC100T3 PO; +LIDO2SOL9 PO; +OMEP-173 PO; -OMEP-218 PO; +ONDA8TAB8; +PENT400T47 PO; -PROC10TA4 PO; +PROC10TA5 PO; +PROHANCE 279.3MG/ML 5ML VIAL As Ordered ONE; -SODIUM CHLORIDE 0.9% INJ 10 ML SYR IV PRN; +VITA100020 PO
== END ==
LOC: M RAD 10:36
PROVIDERS: ATTEND General Practice
DX: C34.90 Malignant neoplasm of unspecified part of unspecified bronchus or lung (principal)
CPT/HCPCS: 70553; A9576

== ENCOUNTER → 2021-02-21 | Outpatient (CLI) | payer BC ==
[~2021-02-21] MED LIST changes: +FLUC100T PO; -FLUC100T3 PO; +ISOVUE-370 76% 100ML VIAL As Ordered ONE; -LIDO2SOL9 PO; -OMEP-173 PO; +OMEP-218 PO; +PROC10TA4 PO; -PROC10TA5 PO; -PROHANCE 279.3MG/ML 5ML VIAL As Ordered ONE
--- NOTE | 2021-02-22 08:14 | REP ---
INDICATION: LUNG CA COMPARISON: 09/09/2020 TECHNIQUE: Axial contrast enhanced images from the thoracic inlet to the upper abdomen with coronal and sagittal reformations using 75 ml Isovue [address] intravenous [address] examination was performed using the following dose reduction techniques: Automated exposure control, adjustment of mA and/or kv according to the patient's size, and use of iterative reconstruction technique. FINDINGS: The bilateral lung davis demonstrate minimal biapical and subtle left basilar scarring. The left lower lobe nodule on prior examination is no longer evident and no new pulmonary nodule or mass lesion is appreciated. No consolidation. No effusion. No pneumothorax. Tracheobronchial tree is patent. No obvious adenopathy. Mediastinum demonstrates stable atherosclerotic changes to the thoracic aorta and coronary arteries without aortic aneurysm or cardiomegaly. No pericardial effusion. [id number]-X-[id number] identified with tip in the SVC. Osseous structures are intact and without acute process. Limited upper abdomen demonstrates normal bilateral adrenal glands. IMPRESSION: 1. Left lower lobe nodule on prior examination is no longer evident. No new acute nodule or mass. No consolidation or effusion. No adenopathy. <Electronically signed by Mike Carlos > 02/22/21 [id number]
== END ==
LOC: M RAD 16:20
PROVIDERS: ATTEND Specialist
DX: C34.32 Malignant neoplasm of lower lobe, left bronchus or lung (principal)
CPT/HCPCS: 71260; Q9967

== ENCOUNTER → 2021-04-28 | Outpatient (CLI) | payer BC ==
--- NOTE | 2021-04-28 11:21 | REPVR ---
PROCEDURE INFORMATION: Exam: CT Neck With Contrast Exam date and time: 04/28/2021 10:34 AM Age: 55 years old Clinical indication: Condition or disease; Cancer; Other: Neoplasm oral cavity TECHNIQUE: Imaging protocol: Computed tomography images of the neck with contrast. Radiation optimization: All CT scans at this facility use at least one of these dose optimization techniques: automated exposure control; mA and/or kV adjustment per patient size (includes targeted exams where dose is matched to clinical indication); or iterative reconstruction. Contrast material: ISOVUE 370; Contrast volume: 75 ml; Contrast route: INTRAVENOUS (IV); COMPARISON: 1. PT PET/CT Skull/mid thigh 08/23/2020 11:[address] Neck with contrast 02/09/2020 11:45:08 AM FINDINGS: Nasopharynx: Unremarkable. Oropharynx: There is mild thickening of the soft palate, more pronounced in the midline and to the right of midline. Mild mucosal space thickening is also noted in the right lateral aspect of the oral cavity and oropharynx. Hypopharynx: There is minimal mucosal space thickening within the hypopharynx. Larynx: There is minimal mucosal space thickening within the larynx. This may be related to post treatment changes. Retropharyngeal space: There is trace edema within the retropharyngeal space. Submandibular/Parotid glands: Normal. Glands are normal in size. Thyroid: Normal. No enlarged or calcified nodules. Lymph nodes: Unremarkable. No lymphadenopathy. Trachea: Visualized trachea is unremarkable. Lungs: Mild centrilobular emphysema and scarring is noted in the lung apices. Bones/joints: Unremarkable. No acute fracture. Vasculature: There is approximately 50% stenosis of the right internal carotid artery origin. A follow-up carotid ultrasound is recommended. There is less than 50% stenosis of left carotid bifurcation. Soft tissues: Unremarkable. No significant soft tissue swelling. IMPRESSION: Mild mucosal space thickening within the oral cavity, oropharynx, hypopharynx, and larynx. Minimal retropharyngeal edema is also present. The findings may be the result of prior radiation therapy or post treatment changes. Clinical correlation is recommended. Electronically signed by: Jerardo Henderson On 04/28/2021 11:21:31 AM
== END ==
LOC: M RAD 10:10
PROVIDERS: ATTEND Physician Assistant Medical
DX: D37.09 Neoplasm of uncertain behavior of other specified sites of the oral cavity (principal); R93.0 Abnormal findings on diagnostic imaging of skull and head, not elsewhere classified
CPT/HCPCS: 70491; Q9967

== ENCOUNTER → 2021-05-28 | Outpatient (CLI) | payer BC ==
[~2021-05-28] MED LIST changes: -ISOVUE-370 76% 100ML VIAL As Ordered ONE
== END ==
LOC: M LABSMTC 09:47
PROVIDERS: ATTEND Anesthesiology
DX: Z01.812 Encounter for preprocedural laboratory examination (principal); Z11.52 Encounter for screening for COVID-19

== ENCOUNTER → 2021-06-03 | Outpatient (CLI) | payer BC ==
[~2021-06-03] MED LIST changes: +LIDO2SOL9 PO
--- NOTE | 2021-06-04 17:47 | REP ---
INDICATION: CAROTID STENOSIS COMPARISON: 04/28/2019 TECHNIQUE: Colindres scale and color Doppler evaluation using linear high frequency transducer Findings: FINDINGS: Two-dimensional colindres scale and color images demonstrate significant partially calcified atheromatous plaquing involving the bilateral carotid bulbs and proximal internal carotid arteries. Color Doppler interrogation demonstrates primarily biphasic arterial wave patterns and normal velocities with moderate spectral broadening. Normal flow direction is appreciated in the bilateral vertebral arteries. ICA peak systolic velocity: Right 101.8 cm/s; Left 93.8 cm/s ICA diastolic velocity: Right 31.7 cm/s; Left 34.8 cm/s ECA peak systolic velocity: Right 85.2 cm/s; Left 76.2 cm/s CCA peak systolic velocity: Right 67.4 cm/s; Left 78.7 cm/s ICA/CCA ratio: Right 1.51 cm/s; Left 1.19 cm/s IMPRESSION: Significant partially calcified atherosclerotic changes appear increased from prior examination of 2019. While based on set standards, narrowing is in the less than 50% range, visually narrowing through the bilateral carotid bulbs is suspected to actually be within the 50-69% range. Correlation is recommended and if necessary consider CTA or MRA for more definitive evaluation. <Electronically signed by Mike Carlos > 06/04/21 [id number]
== END ==
LOC: M RAD 12:53
PROVIDERS: ATTEND Otolaryngology
DX: D37.09 Neoplasm of uncertain behavior of other specified sites of the oral cavity (principal); Z85.818 Personal history of malignant neoplasm of other sites of lip, oral cavity, and pharynx

== ENCOUNTER → 2021-06-08 | Day surgery (SDC) | payer BC ==
[~2021-06-08] VITALS: Ht 170.2 cm; Wt 54.8 kg
[~2021-06-08] MED LIST changes: +ACETAMINOPHEN 1000MG 100ML IV BTL (OFIRMEV) (J0131 PER 10MG) As Ordered ONE; +ESMOLOL INJ 100MG/10ML VIAL As Ordered ONE; +LIDOCAINE 2% 100MG/5ML SDV (FOR ANES.) As Ordered ONE; +LIDOCAINE W/EPINEPHRINE 1% 20ML VIAL As Ordered ONE; +LR 1,000 ML IV ONE; +LR 1,000 ML IV SCH; +MIDAZOLAM INJ 2MG/2ML VIAL (J2250 PER 1MG) As Ordered ONE; +ONDANSETRON 4MG/2ML VIAL As Ordered ONE; +ONDANSETRON 4MG/2ML VIAL IV PRN; +PHENYLephrine 500MCG 5ML (100MCG/ML) SYRINGE As Ordered ONE; +ROCURONIUM BROMIDE 50 MG/5 ML VIAL As Ordered ONE; +SUGAMMADEX SODIUM 500 MG/5 ML VIAL (BRIDION) As Ordered ONE; +dexameTHASONE 4 MG/ML 1ML VIAL (J1100 PER 1MG) As Ordered ONE; +fentaNYL 100 MCG/2 ML INJECTION (J3010) As Ordered ONE; +fentaNYL 100 MCG/2 ML INJECTION (J3010) IV PRN; +propofoL 200 MG/20 ML VIAL As Ordered ONE
--- OUTSIDE RECORDS SUMMARY | 2021-06-08 09:12 | CCD | Continuity of Care Document ---
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 AUTM [phone] Central Scheduling AUTM [phone] Rickie Moralez M.D. AUTM [phone] [facility] Rehab - Rehab/PT,,St AUTM [phone] AUTM Unavailable Hguo Skelton M.D. AUTM [phone] Problems Description No Active Problems Social History Type Date Description Comments Sex Unknown ETOH Use 4 A Week Recreational Drug Use Denies Drug Use Tobacco Use Start: Unknown Report Cessation Counseling Was Provided Tobacco Use Start: Unknown End: Patient is a former smoker hx of 1 ppd Smoking Status Reviewed: 03/01/21 Patient is a former smoker hx of 1 ppd Allergies and adverse reactions Active Allergies Criticality Reaction | Severity Comments Date Codeine Unable to assess criticality Tongue Swell ing 10/16/2019 Medications Active Medications SIG Qnty Indications Ordering Provide r Date Ventolin HFA 108(90Base) mcg/Act A erosol 1 puff every 6 hours as needed 8gm Z85.818 Alba Benavidez M.D . 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 60tabs B96.81 Rickie Moralez M.D. 03/22/2020 Immunizations Description No Information Available Vital Signs Date Vital Result Comment 04/25/2021 7:38am Height 67 inches 5'7" Weight 121.12 lb BMI (Body Mass Index) 19.0 kg/m2 [place] Body Weight 148 lb Weight 54.942 kg BSA (Body Surface Area) 1.63 m2 03/01/2021 2:22pm BP Systolic 142 mmHg BP Diastolic 80 mmHg Heart Rate 97 /min O2 % BldC Oximetry 99 % Height 67 inches 5'7" Weight 112.25 lb BMI (Body Mass Index) 17.6 kg/m2 [place] Body Weight 148 lb Weight 50.917 kg BSA (Body Surface Area) 1.58 m2 Results Test Acquired Date Facility Test Result H/L Range Note FVL/Horacio 03/01/2021 [facility] SEE IMAGE FVC-Pred 4.40 L FVC-Pre 3.08 L FVC-%Pred-Pre 70 L FVC-LLN 3.54 L Fev1-Pred 3.37 L Fev1-Pre 2.34 L Fev1-%Pred-Pre 69 L Fev1-LLN 2.64 L Fev6-Pred 4.21 L Fev6-Pre 3.08 L Fev6-%Pred-Pre 73 L Fev6-LLN 3.37 L Ugp8iby-Kfdf 76 % Niu5aof-Yxg 76 % Flt6kqc-%Pred-Pre 99 % Byx8xbw-SDR 67 % Dxz6wlw-Jbhv 96 % Adz3xfu-Rwo 100 % Hmx1jlu-%Pred-Pre 104 % FEFMax-Pred 8.83 L/E/sec FEFMax-Pre 4.25 L/E/sec FEFMax-%Pred-Pre 48 L/E/sec FEFMax-LLN 6.71 L/E/sec Rtl4594-Kenv 2.90 L/E/sec Izz0706-Uyq 1.94 L/E/sec Zea8570-%Pred-Pre 66 L/E/sec Sez8165-LPF 1.43 L/E/sec ExpTime-Pre 5.74 sec Kai9hfl4-Avqt 80 % Fym3uqq6-Jni 76 % Coe8xfy9-%Pred-Pre 95 % Lbx8dnx8-CVL 71 % Procedures Date Code Description Status 04/25/2021 55146 Office/Outpatient Established Lo w MDM 20-29 Min Completed 03/01/2021 34577 Office/Outpatient Established Mo d MDM 30-39 Min Completed 03/01/2021 36476 Spirometry Completed 02/23/2021 22971 Office/Outpatient Established Lo w MDM 20-29 Min Completed 11/08/2020 82520 Office/Outpatient Established Lo w MDM 20-29 Min Completed Medical Devices Description No Information Available Encounters Type Date Location Provider Dx Diagnosis Office Visit 04/25/2021 7:30a [facility] Gregorio Russ II, PA-C Z85.818 Prsnl hx of malig neoplm of site of lip, oral cav, & pharynx K12.30 Oral mucositis (ulcerative), unspecified D37.09 Neoplasm of uncertain behavi or of sites of the oral cavity Office Visit 03/01/2021 2:30p [facility] Pulmonary/Thoracic Alba Caraballo M.D. 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 Office Visit 02/23/2021 1:30p [facility] Gregorio Russ II, PA-C K12.30 Oral mucositis (ulcerative), unspecified Z85.818 Prsnl hx of malig neoplm of site of lip, oral cav, & pharynx Office Visit 11/08/2020 11:00a [facility] Jude Vasquez MD K12.30 Oral mucositis (ulcerative), unspecified Z87.891 Personal history of nicotine dependence Z85.818 Prsnl hx of malig neoplm of site of lip, oral cav, & pharynx R22.1 Localized swelling, mass and lump, neck Assessments Date Code Description Provider 04/25/2021 Z85.818 Personal history of malignant neoplasm of other sites of lip, oral cavity, and pharynx Gregorio Russ II, PA-C 04/25/2021 K12.30 Oral mucositis (ulcerative), uns pecified Gregorio Russ II, PA-C 04/25/2021 D37.09 Neoplasm of uncertai n behavior of other specified sites of the oral cavity Gregorio Russ II, PA-C 03/01/2021 Z85.818 Personal history of malignant neoplasm of other sites of lip, oral cavity, and pharynx Alba Benavidez M.D. 03/01/2021 Z87.891 Personal history of nicotine dep rubioence Alba Benavidez M.D. 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 02/23/2021 K12.30 Oral mucositis (ulcerative), uns pecified Gregorio Russ II, PA-C 02/23/2021 Z85.818 Personal history of malignant neoplasm of other sites of lip, oral cavity, and pharynx Gregorio Russ II, PA-C 11/08/2020 K12.30 Oral mucositis (ulcerative), uns pecified Jude Vasquez MD 11/08/2020 Z87.891 Personal history of nicotine dep bev Vasquez MD 11/08/2020 Z85.818 Personal history of malignant neoplasm of other sites of lip, oral cavity, and pharynx Jude Vasquez MD 11/08/2020 R22.1 Localized swelling, mass and lum p, neck Jude Vasquez MD Plan of Treatment Future Appointment(s):* 05/04/2021 3:45 pm - Jude Vasquez MD at [facility] 04/25/2021 - Gregorio Russ II, PA-C* Z85.818 Personal history of malignant neoplasm of other sites of lip, oral cavity, and pharynx * K12.30 Oral mucositis (ulcerative), unspecified * D37.09 Neoplasm of uncertain behavior of other specified sites of the oral cavity* New Labs:* BUN & Creatinine ([facility]), Ordered: 04/25/21 * New Xrays:* CT Neck Soft Tissue W Contrast, Scheduled: 04/28/21 * Comments:* There is a new, suspicious lesion on the left side of the oral tongue 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 Area is quite tender to any manipulation. Will obtain a CT STN and arrange for biopsy left tongue lesion in OR next 2-3 weeks, orders submitted. He will return to review CT scan with Dr Vasquez prior to surgery. Will request PCP to provide medical clearance prior to surgery. Dr. Vasquez examined this patient at my request. His recommendations are as above. Functional Status Functional Condition Comment Date Status Independent with all ADL's Activ e Mental Status Description No Information Available Referrals Description No Information Available
--- OUTSIDE RECORDS SUMMARY | 2021-06-08 09:12 | CCD | Continuity of Care Document ---
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 AUTM [phone] Central Scheduling AUTM [phone] Rickie Moralez M.D. AUTM [facility] Rehab - Rehab/PT,,St AUTM [phone] AUTM Unavailable Hugo Skelton M.D. AUTM [phone] Problems Description No Active Problems Social History [...] DR once daily - to be taken lay brother on empty stomach (atleast 1/2 hour before breaksfast) . 60tabs B96.81 Rickie Moralez M.D. 03/22/2020 Immunizations Description No Information Available Vital Signs Date Vital Result Comment 04/25/2021 7:38am Height 67 inches 5'7" Weight 121.12 lb BMI (Body Mass Index) 19.0 kg/m2 [place] Body Weight 148 lb Weight 54.942 kg BSA (Body Surface Area) 1.63 m2 03/01/2021 2:22pm BP Systolic 142 mmHg BP Diastolic 80 mmHg Heart Rate 97 /min O2 % BldC Oximetry 99 % Height 67 inches 5'7" Weight 112.25 lb BMI (Body Mass Index) 17.6 kg/m2 [place] Body Weight 148 lb Weight 50.917 kg [...] L Fev6-%Pred-Pre 73 L Fev6-LLN 3.37 L Vwi8xqx-Xuss 76 % Dlr6ajy-Rpp 76 % Yhm2wsa-%Pred-Pre 99 % Gwj3wta-RKG 67 % Xno9hxm-Ioix 96 % Gdj8ooy-Ndj 100 % Pei5dpb-%Pred-Pre 104 % FEFMax-Pred 8.83 L/E/sec FEFMax-Pre 4.25 L/E/sec FEFMax-%Pred-Pre 48 L/E/sec FEFMax-LLN 6.71 L/E/sec Vxt6118-Rtzj 2.90 L/E/sec Pqc9070-Psu 1.94 L/E/sec Xfb6306-%Pred-Pre 66 L/E/sec Ncq0492-RXD 1.43 L/E/sec ExpTime-Pre 5.74 sec Dox4ovp2-Avsz 80 % Urz3vxi3-Xxv 76 % Wtj0isj3-%Pred-Pre 95 % Ehi8sah2-ZLP 71 % Procedures Date Code Description Status 03/01/2021 07549 Office/Outpatient Established Mo d MDM 30-39 Min Completed 03/01/2021 26634 Spirometry Completed 02/23/2021 27088 Office/Outpatient Established Lo w MDM 20-29 Min Completed 11/08/2020 39933 Office/Outpatient Established Lo w MDM 20-29 Min Completed Medical Devices Description No Information Available Encounters Type Date Location Provider Dx Diagnosis Office Visit 03/01/2021 2:30p [facility] Pulmonary/Thoracic K Alba bowden M.D. 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 02/23/2021 K12.30 Oral mucositis (ulcerative), uns pecified Gregorio Russ II, PA-C 02/23/2021 Z85.818 Personal history of malignant neoplasm of other sites of lip, oral cavity, and pharynx Gregorio Russ II, PA-C 11/08/2020 K12.30 Oral mucositis (ulcerative), uns pecified uJde Vasquez MD 11/08/2020 Z87.891 Personal history of nicotine dep endence Jude Vasquez MD 11/08/2020 Z85.818 Personal history of malignant neoplasm of other sites of lip, oral cavity, and pharynx Jude Vasquez MD 11/08/2020 R22.1 Localized swelling, mass and lum p, neck Jude Vasquez MD Plan of Treatment 04/25/2021 - Gregorio Russ II, PA-C* Z85.818 Personal history of malignant neoplasm of other sites of lip, oral cavity, and pharynx * K12.30 Oral mucositis (ulcerative), unspecified * D37.09 Neoplasm of uncertain behavior of other specified sites of the oral cavity* New Labs:* BUN & Creatinine ([facility]), Ordered: 04/25/21 * New Xrays:* CT Neck Soft Tissue W Contrast, Ordered: 04/25/21 * Comments:* CT STNBx left tongue lesion in [place] Functional Status Functional Condition Comment Date Status Independent with all ADL's Activ e Mental Status Description No Information Available Referrals Description No Information Available
--- OUTSIDE RECORDS SUMMARY | 2021-06-08 09:13 | CCD ---
Author Author [facility] Organization [facility] Address Unknown Phone Unavailable Care Team Providers Care Real Estate Sales Supervisor Name Role Phone Alba Benavidez MD Unavailable Unavailable Alba Benavidez MD Unavailable Unavailable Alba Benavidez MD Unavailable Unavailable Alba Benavidez MD Unavailable Unavailable Alba Benavidez MD Unavailable Unavailable Alba Benavidez MD Unavailable Unavailable Alba Benavidez MD Unavailable Unavailable Alba Benavidez MD Unavailable Unavailable Alba Benavidez MD Unavailable Unavailable Alba Benavidez MD Unavailable Unavailable Alba Benavidez MD Unavailable Unavailable Alba Benavidez MD Unavailable Unavailable Alba Benavidez MD Unavailable Unavailable Alba Benavidez MD Unavailable Unavailable Alba Benavidez MD Unavailable Unavailable Alba Benavidez MD Unavailable Unavailable Alba Benavidez MD Unavailable Unavailable Alba Benavidez MD Unavailable Unavailable Alba Benavidez MD Unavailable Unavailable Alba Benavidez MD Unavailable Unavailable Alba Benavidez MD Unavailable Unavailable Alba Benavidez MD Unavailable Unavailable Alba Benavidez MD Unavailable Unavailable Alba Benavidez MD Unavailable Unavailable Alba Benavidez MD Unavailable Unavailable Alba Benavidez MD Unavailable Unavailable Alba Benavidez MD Unavailable Unavailable Alba Benavidez MD Unavailable Unavailable Alba Benavidez MD Unavailable Unavailable Alba Benavidez MD Unavailable Unavailable ADJAPONG, MELI Unavailable Unavailable Moshe VASQUEZ MD Unavailable Unavailable Moshe VASQUEZ MD Unavailable Unavailable Moshe VASQUEZ MD Unavailable Unavailable Moshe VASQUEZ MD Unavailable Unavailable JASON, C ALISON MD Unavailable Unavailable JASON, C ALISON MD Unavailable Unavailable JASON, C ALISON MD Unavailable Unavailable JASON, C ALISON MD Unavailable Unavailable JASON, C ALISON MD Unavailable Unavailable JASON, C ALISON MD Unavailable Unavailable JASON, C ALISON MD Unavailable Unavailable JASON, C ALISON MD Unavailable Unavailable JASON, C ALISON MD Unavailable Unavailable JASON, C ALISON MD Unavailable Unavailable JASON, C ALISON MD Unavailable Unavailable JASON, C ALISON MD Unavailable Unavailable JASON, C ALISON MD Unavailable Unavailable JASON, C ALISON MD Unavailable Unavailable JASON, C ALISON MD Unavailable Unavailable JASON, C ALISON MD Unavailable Unavailable JASON, C ALISON MD Unavailable Unavailable JASON, C ALISON MD Unavailable Unavailable JASON, C ALISON MD Unavailable Unavailable JASON, C ALISON MD Unavailable Unavailable JASON, C ALISON MD Unavailable Unavailable JASON, C ALISON MD Unavailable Unavailable JASON, C ALISON MD Unavailable Unavailable JASON, C ALISON MD Unavailable Unavailable JASON, C ALISON MD Unavailable Unavailable JASON, C ALISON MD Unavailable Unavailable JASON, C ALISON MD Unavailable Unavailable JASON, C ALISON MD Unavailable Unavailable JASON, C ALISON MD Unavailable Unavailable JASON, C ALISON MD Unavailable Unavailable Petrona II, Gregorio PA Unavailable Unavailable Petrona II, Gregorio PA Unavailable Unavailable Petrona II, Gregorio PA Unavailable Unavailable Petrona II, Gregorio PA Unavailable Unavailable Petrona II, Gregorio PA Unavailable Unavailable Petrona II, Gregorio PA Unavailable Unavailable Petrona II, Gregorio PA Unavailable Unavailable Petrona II, Gregorio PA Unavailable Unavailable Petrona II, Gregorio PA Unavailable Unavailable Petrona II, Gregorio PA Unavailable Unavailable Petrona II, Gregorio PA Unavailable Unavailable Petrona II, Gregorio PA Unavailable Unavailable Petrona II, Gregorio PA Unavailable Unavailable Petrona II, Gregorio PA Unavailable Unavailable Petrona II, Gregorio PA Unavailable Unavailable Petrona II, Gregorio PA Unavailable Unavailable Petrona II, Gregorio PA Unavailable Unavailable Petrona II, Gregorio PA Unavailable Unavailable Petrona II, Gregorio PA Unavailable Unavailable Re-disclosure Warning The records that you are about to access may contain information from federally-assisted alcohol or drug abuse programs. If such information is present, then the following federally mandated warning applies: This information has been disclosed to you from records protected by federal confidentiality rules (42 CFR part 2). The federal rules prohibit you from making any further disclosure of this information unless further disclosure is expressly permitted by the written consent of the person to whom it pertains or as otherwise permitted by 42 CFR part 2. A general authorization for the release of medical or other information is NOT sufficient for this purpose. The Federal rules restrict any use of the information to criminally investigate or prosecute any alcohol or drug abuse patient.The records that you are about to access may contain highly sensitive health information, the redisclosure of which is protected by Article 27-F of the [facility] Public Health law. If you continue you may have access to information: Regarding HIV / AIDS; Provided by facilities licensed or operated by the [facility] Office of Mental Health; or Provided by the [facility] Office for People With Developmental Disabilities. If such information is present, then the following [facility] mandated warning applies: This information has been disclosed to you from confidential records which are protected by state law. State law prohibits you from making any further disclosure of this information without the specific written consent of the person to whom it pertains, or as otherwise permitted by law. Any unauthorized further disclosure in violation of state law may result in a fine or fci sentence or both. A general authorization for the release of medical or other information is NOT sufficient authorization for further disc losure. Encounters Encounter Providers Location Date Indications Data Source(s ) Outpatient Attender: Gregorio Mccabe/Sukhdev/Rein dl 04/25/2021 07:30:00 AM EDT [facility] ([facility]) Outpatient Attender: Alba Vasquez/Abarm/Pepito ndjazlyn 03/01/2021 02:30:00 PM EDT [facility] ([facility]) Outpatient Attender: Gregorio Mccabe/Sukhdev/Rein dl 02/23/2021 01:30:00 PM EDT [facility] ([facility]) Outpatient [address] [facility] [place] [address] 12/20/2020 12:00:00 AM EDT eCW1 ([facility]) Outpatient Attender: ALISON Bonilla/Alisson hobson 11/08/2020 11:00:00 AM EDT [facility] ([facility] [place] [address] [facility] [facility] [place] [address] 10/01/2020 12:00:00 AM EDT eCW1 ([facility]) Outpatient Attender: Alba Vasquez/Rule/Sukhdev/Pepito ndl 09/29/2020 03:30:00 PM EDT [facility] ([facility] ) Outpatient Attender: ALISON Vasquez/Rule/Sukhdev/Reind l 09/27/2020 11:15:00 AM EDT [facility] ([facility] ) Outpatient Admitter: MELI MONTEIROReferrer: MELI MONTEIRO 09/22/2020 12:00:00 AM EDT Enlarged lymph nodes, unspecified [facility] Enlarged lymph nodes, unspecified Unknown [address] [facility] [facility] [place] [address] 09/09/2020 12:00:00 AM EST eCW1 ([facility]) Outpatient Attender: Alba Vasquez/Rubia/Sukhdev/Pepito ndl 08/31/2020 08:30:00 AM EST [facility] ([facility] ) Outpatient Attender: ALISON Vasquez/Rubia/Sukhdev/Reind l 06/22/2020 08:45:00 AM EST [facility] ([facility] ) Outpatient Attender: ALISON Vasquez/Rubia/Sukhdev/Reind l 04/27/2020 09:15:00 AM EDT [facility] ([facility] Immunizations Vaccine Date Status Description Data Source(s) COVID-19 VACCINE Pfizer 10/04/2020 12:00:00 AM EDT completed [facility] Vaccine Series Complete: YESThis Data wa s Submitted to [facility] Via [facility]. COVID-19 dose #1 given elsewhere Unspecified 09/13/2020 10:0 3:00 AM EDT completed eCW1 ([facility]) COVID-19 dose #1 given elsewhere Unspecified 09/13/2020 10:0 3:00 AM EDT completed eC1 ([facility]) COVID-19 VACCINE Pfizer 09/13/2020 12:00:00 AM EDT completed [facility] Vaccine Series Complete: NOThis Data was Submitted to [facility] Via [facility]. Medications Medication Brand Name Start Date Product Form Dose Route Admi nistrative Instructions Pharmacy Instructions Status Indications Reaction Description Data Source(s) 2 % 05/31/2021 12:00:00 AM EST solution 100 USE 15 ML BY MOUTH FOUR TIMES A DAY FOR MOUTH SORE PAIN USE 15 ML BY MOUTH FOUR TIMES A DAY FOR MOUTH SORE LOUIE N SOLD: 06/01/2021 [facility] 90 mcg/actuation 03/02/2021 12:00:00 AM EDT HFA aerosol inha ler 18 INHALE 1 PUFF BY MOUTH EVERY 6 HOURS NEEDED INHALE 1 PUFF BY MOUTH EVERY 6 HOURS NEEDED SOLD: 03/04/2021 [facility] 200 ACTUAT Albuterol 0.09 MG/ACTUAT Metered Dose Inhal er [Ventolin] Ventolin HFA 03/01/2021 12:00:00 AM EDT RESPIRATORY active [facility] ([facility] ) 400 mg 02/10/2021 12:00:00 AM EDT tablet extended release 90 TAKE ONE TABLET BY MOUTH THREE TIMES A DAY TAKE ONE TABLET BY MOUTH THREE TIMES A DAY SOLD: 02/14/2021 [facility] 8 mg 01/29/2021 12:00:00 AM EDT tablet,disintegrating 3 0 DISSOLVE ONE TABLET UNDER THE TONGUE EVERY 8 HOURS FOR NAUSEA DISSOLVE ONE TABLET UNDER THE TONGUE EVERY 8 HOURS FOR NAUSEA SOLD: 03/05/2021 [facility] 8 mg 01/29/2021 12:00:00 AM EDT tablet,disintegrating 3 0 DISSOLVE ONE TABLET UNDER THE TONGUE EVERY 8 HOURS FOR NAUSEA DISSOLVE ONE TABLET UNDER THE TONGUE EVERY 8 HOURS FOR NAUSEA SOLD: 01/31/2021 [facility] 10 mg 01/28/2021 12:00:00 AM EDT tablet 30 TAKE ONE TABLET BY MOUTH EVERY 6 HOURS NEEDED FOR NAUSEA MAXIMUM DAILY DOSE = 4 TAKE ONE TABLET BY MOUTH EVERY 6 HOURS NEEDED FOR NAUSEA MAXIMUM DAILY DOSE = 4 SOLD: 01/29/2021 [facility] 5 mg/5 mL 12/21/2020 12:00:00 AM EDT solution 210 TAKE 5 ML BY MOUTH EVERY 4 HOURS NEEDED FOR ESOPHAGITIS MAXIMUM DAILY DOSE = 30 ML TAKE 5 ML BY MOUTH EVERY 4 HOURS NEEDED FOR ESOPHAGITIS MAXIMUM DAILY DOSE = 30 ML SOLD: 12/22/2020 [facility] 15 mg 12/03/2020 12:00:00 AM EDT tablet extended release 30 TAKE ONE TABLET BY MOUTH TWICE A DAY MAXIMUM DAILY DOSE = 2 TAKE ONE TABLET BY MOUTH TWICE A DAY MAXIMUM DAILY DOSE = 2 SOLD: 12/03/2020 [facility] 100 mg/mL 12/03/2020 12:00:00 AM EDT suspension 840 TAKE 10 ML BY MOUTH FOUR TIMES A DAY TAKE 10 ML BY MOUTH FOUR TIMES A DAY SOLD: 12/04/2020 [facility] 750 mg 11/05/2020 12:00:00 AM EDT tablet 20 TAKE ONE TABLET BY MOUTH TWICE A DAY TAKE ONE TABLET BY MOUTH TWICE A DAY SOLD: 11/05/2020 [facility] 100 mg 11/03/2020 12:00:00 AM EDT tablet 8 TAKE 2 TABLETS BY MOUTH ON DAY 1 THEN TAKE 1 TABLET ONCE A DAY FOR 7 DAYS TAKE 2 TABLETS BY MOUTH ON DAY 1 THEN TAKE 1 TABLET ONCE A DAY FOR 7 DAYS SOLD: 11/03/2020 [facility] 10 mg 10/28/2020 12:00:00 AM EDT tablet 30 TAKE ONE TABLET BY MOUTH EVERY 6 HOURS TAKE ONE TABLET BY MOUTH EVERY 6 HOURS SOLD: 10/30/2020 [facility] 100 mg 08/27/2020 12:00:00 AM EST tablet 22 TAKE TWO TABLETS BY MOUTH ON DAY 1 THEN TAKE ONE TABLET BY MOUTH EVERY DAY TO COMPLETE 21 DAYS FOR YEAST INFECTION TAKE TWO TABLETS BY MOUTH ON DAY 1 THEN TAKE ONE TABLET BY MOUTH EVERY DAY TO COMPLETE 21 DAYS FOR YEAST INFECTION SOLD: 08/27/2020 [facility] 8 mg 05/31/2020 12:00:00 AM EST tablet,disintegrating 4 0 DISSOLVE ONE TABLET UNDER THE TONGUE EVERY 8 HOURS FOR NAUSEA DISSOLVE ONE TABLET UNDER THE TONGUE EVERY 8 HOURS FOR NAUSEA SOLD: 06/01/2020 [facility] 8 mg 05/31/2020 12:00:00 AM EST tablet,disintegrating 4 0 DISSOLVE ONE TABLET UNDER THE TONGUE EVERY 8 HOURS FOR NAUSEA DISSOLVE ONE TABLET UNDER THE TONGUE EVERY 8 HOURS FOR NAUSEA SOLD: 10/07/2020 [facility] 5 mg 05/26/2020 12:00:00 AM EST tablet 40 TAKE ONE TABLET BY MOUTH EVERY 4 TO 6 HOURS NEEDED FOR PAINFUL MUCOSITIS RADIARTION MAXIMUM DAILY DOSE = 6 TAKE ONE TABLET BY MOUTH EVERY 4 TO 6 HOURS NEEDED FOR PAINFUL MUCOSITIS RADIARTION MAXIMUM DAILY DOSE = 6 SOLD: 05/30/2020 [facility] 5 mg/5 mL 05/24/2020 12:00:00 AM EST solution 840 TAKE 10 ML BY MOUTH EVERY 4 HOURS FOR MUSCOSITIS MAXIMUM DAILY DOSE = 60 ML TAKE 10 ML BY MOUTH EVERY 4 HOURS FOR MUSCOSITIS MAXIMUM DAILY DOSE = 60 ML SOLD: 05/24/2020 [facility] 5 mg 05/19/2020 12:00:00 AM EST tablet 60 TAKE TWO TABLETS BY MOUTH EVERY 4 HOURS NEEDED FOR PAIN MAXIMUM DAILY DOSE = 12 TAKE TWO TABLETS BY MOUTH EVERY 4 HOURS NEEDED FOR PAIN MAXIMUM DAILY DOSE = 12 SOLD: 05/20/2020 [facility] 5-325 mg 05/12/2020 12:00:00 AM EST tablet 28 TAKE ONE TABLET BY MOUTH FOUR TIMES A DAY NEEDED FOR ORAL PAIN OR DISCOMFORT MAXIMUM DAILY DOSE = 4 TAKE ONE TABLET BY MOUTH FOUR TIMES A DAY NEEDED FOR ORAL PAIN OR DISCOMFORT MAXIMUM DAILY DOSE = 4 SOLD: 05/15/2020 [facility] 100,000 unit/mL 05/04/2020 12:00:00 AM EST suspension 120 USE 1 TEASPOONFUL TO SWISH DIRECTED 5 TIMES DAILY USE 1 TEASPOONFUL TO SWISH DIRECTED 5 TIMES DAILY SOLD: 11/05/2020 [facility] 100,000 unit/mL 05/04/2020 12:00:00 AM EST suspension 120 USE 1 TEASPOONFUL TO SWISH DIRECTED 5 TIMES DAILY USE 1 TEASPOONFUL TO SWISH DIRECTED 5 TIMES DAILY SOLD: 08/27/2020 [facility] 5-325 mg 04/26/2020 12:00:00 AM EDT tablet 21 TAKE ONE TABLET BY MOUTH THREE TIMES A DAY NEEDED FOR PAIN MAXIMUM DAILY DOSE = 3 TAKE ONE TABLET BY MOUTH THREE TIMES A DAY NEEDED FOR PAIN MAXIMUM DAILY DOSE = 3 SOLD: 04/28/2020 [facility] 10 mg 04/20/2020 12:00:00 AM EDT tablet 40 TAKE ONE TABLET BY MOUTH EVERY 8 HOURS NEEDED FOR NAUSEA TAKE ONE TABLET BY MOUTH EVERY 8 HOURS A S NEEDED FOR NAUSEA SOLD: 10/07/2020 [facility] 8 mg 04/20/2020 12:00:00 AM EDT tablet,disintegrating 4 0 DISSOLVE ONE TABLET UNDER THE TONGUE EVERY 8 HOURS FOR NAUSEA DISSOLVE ONE TABLET UNDER THE TONGUE EVERY 8 HOURS FOR NAUSEA SOLD: 05/15/2020 [facility] 8 mg 04/20/2020 12:00:00 AM EDT tablet,disintegrating 4 0 DISSOLVE ONE TABLET UNDER THE TONGUE EVERY 8 HOURS FOR NAUSEA DISSOLVE ONE TABLET UNDER THE TONGUE EVERY 8 HOURS FOR NAUSEA SOLD: 04/20/2020 [facility] 10 mg 04/20/2020 12:00:00 AM EDT tablet 40 TAKE ONE TABLET BY MOUTH EVERY 8 HOURS NEEDED FOR NAUSEA TAKE ONE TABLET BY MOUTH EVERY 8 HOURS A S NEEDED FOR NAUSEA SOLD: 04/20/2020 [facility] Alprazolam 0.5 MG Oral Tablet ALPRAZOLAM 04/13/2020 12:00:00 AM EDT ta blet 30 TAKE 1 TABLET BY MOUTH 30 MINUTES PRIOR TO RADIATION TREATMENT APPOINTMENTS MAXIMUM DAILY DOSE = 1 TAKE 1 TABLET BY MOUTH 30 MINUTES PRIOR TO RADIATION TREATMENT APPOINTMENTS MAXIMUM DAILY DOSE = 1 SOLD: 04/13/2020 [facility] MAGNESIUM CITRATE 04/07/2020 12:00:00 AM EDT solution 296 TAKE PER INSTRUCTION SHEET FOR BOWEL PREP TAKE PER INSTRUCTION SHEET FOR BOWEL PREP SOLD: 04/13/2020 [facility] 4 mg 04/06/2020 12:00:00 AM EDT tablet 14 TAKE 1 TO 2 TABLETS BY MOUTH 20 TO 30 MINUTES BEFORE YOUR BOWEL PREP LIQUID (FOR NAUSEA / PREVENT VOMITING) TAKE 1 TO 2 TABLETS BY MOUTH 20 TO 30 MINUTES BEFORE YOUR BOWEL PREP LIQUID (FOR NAUSEA / PREVENT VOMITING) SOLD: 04/13/2020 [facility] Ondansetron 4 MG Oral Tablet [Zofran] Zofran 04/06/2020 12:00:00 AM EDT ORAL completed [facility] ([facility], ) magnesium citrate 58.2 MG/ML Oral Solution Magnesium Citrate 04/06/2020 12:00:00 AM EDT completed [facility] ([facility], ) Bisacodyl 5 MG Delayed Release Oral Tablet [Dulcolax] Dulcol ax 04/06/2020 12:00:00 AM EDT completed [facility] ([facility], ) 5 mg 04/06/2020 12:00:00 AM EDT tablet,delayed release (DR/EC) 4 TAKE FOUR TABLETS BY MOUTH TOGETHER PER BOWEL PREP INSTRUCTIONS TAKE FOUR TABLETS BY MOUTH TOGETHER PER BOWEL PREP INSTRUCTIONS SOLD: 04/13/2020 [facility] 20 mg 03/23/2020 12:00:00 AM EDT capsule,delayed release (DR/EC) 60 TAKE ONE CAPSULE BY MOUTH EVERY MORNING ON AN EMPTY STOMACH 1/2 HOUR BEFORE BREAKFAST TAKE ONE CAPSULE BY MOUTH EVERY MORNING ON AN EMPTY STOMACH 1/2 HOUR BEFORE BREAKFAST SOLD: 09/24/2020 [facility] 20 mg 03/23/2020 12:00:00 AM EDT capsule,delayed release (DR/EC) 60 TAKE ONE CAPSULE BY MOUTH EVERY MORNING ON AN EMPTY STOMACH 1/2 HOUR BEFORE BREAKFAST TAKE ONE CAPSULE BY MOUTH EVERY MORNING ON AN EMPTY STOMACH 1/2 HOUR BEFORE BREAKFAST SOLD: 06/13/2020 [facility] [id number] 02/22/2020 12:00:00 AM EDT suspension 240 SWISH AND SPIT 15ML BY MOUTH FOUR TIMES A DAY NEEDED SWISH AND SPIT 15ML BY MOUTH FOUR TIMES A DAY NEEDED SOLD: 11/08/2020 [facility] Insurance Providers Payer name Policy type / Coverage type Policy ID Covered alliance party ID Covered alliance party's relationship to umanzor Policy Umanzor Plan Information [employer] U [id number] Spouse [id number] RMSCO U [id number] Spouse [id number] RMSCO U [id number] Spouse [id number] [employer] U [id number] Spouse [id number] EXCELLUS C [id number] Unkn [id number] EXCELLUS BCBS B [id number] O VYS [id number] [place]/307 [id number] [place] 306/806 [id number] [place] [id number] [employer] MEDICAL CLAIMS [id number] [place] [id number] [place]/307 [id number] [place] [id number] RMS[employer] [id number] 18 [id number] [place]/307 [id number] EXCELLUS BCBS B [id number] O [id number] [place]/307 [id number] [id number] [place] 306/806 [id number] [id number] Problems, Conditions, and Diagnoses Code Display Name Description Problem Type Effective Dates Data Source(s) R59.9 Enlarged lymph nodes, unspecified Enlarged lymph nodes, unspecified Diagnosis 09/22/2020 12:40:00 PM [facility] C34.90 [id number] Small cell lung cancer Problem 12/20/2020 12 :00:00 AM EDT eC1 ([facility]) Surgeries/Procedures Procedure Description Date Indications Data Source(s) OFFICE OUTPATIENT VISIT 15 MINUTES 04/25/2021 12:00:00 AM EDT [facility] ([facility]) Spirometry 03/01/2021 12:00:00 AM EDT M EDENT ([facility]) OFFICE OUTPATIENT VISIT 25 MINUTES 03/01/2021 12:00:00 AM EDT [facility] ([facility]) OFFICE OUTPATIENT VISIT 15 MINUTES 02/23/2021 12:00:00 AM EDT [facility] ([facility]) OFFICE OUTPATIENT VISIT 15 MINUTES 11/08/2020 12:00:00 AM EDT [facility] ([facility]) OFFICE OUTPATIENT VISIT 25 MINUTES 09/29/2020 12:00:00 AM EDT [facility] ([facility]) OFFICE OUTPATIENT VISIT 15 MINUTES 09/27/2020 12:00:00 AM EDT [facility] ([facility]) With Endobronchial Ultrasound Guided 09/22/2020 12:00: 00 AM EDT [facility] ([facility]) Spirometry 08/31/2020 12:00:00 AM EST M EDENT ([facility]) OFFICE OUTPATIENT NEW 45 MINUTES 08/31/2020 12:00:00 A M EST [facility] ([facility]) Results ID Date Data Source [id number] 05/28/2021 09:20:00 AM EST [facility] Name Value Range Interpretation Code Description Data Jennie rce(s) Supporting Document(s) SARS-CoV-2 (COVID-19) RNA [Presence] in Respiratory specimen by KARLEE with probe detection Not Detected [facility] This lab was ordered by [facility] and reported by [facility]. ID Date Data Source [id number] 03/01/2021 02:22:00 PM EDT [facility] ([facility], ) Name Value Range Interpretation Code Description Data Jennie rce(s) Supporting Document(s) PDFReport Laboratory test result MED[facility] ([facility], ) FVC-Pred 4.40 L [facility] ([facility]) FVC-Pre 3.08 L [facility] ([facility]) FVC-LLN 3.54 L [facility] ([facility]) FVC-%Pred-Pre 70 L [facility] ([facility]) Fev1-%Pred-Pre 69 L [facility] ([facility]) Fev1-Pred 3.37 L [facility] ([facility]) Fev1-Pre 2.34 L [facility] ([facility]) Fev1-LLN 2.64 L [facility] ([facility]) Fev6-Pred 4.21 L [facility] ([facility]) Fev6-%Pred-Pre 73 L [facility] ([facility]) Fev6-LLN 3.37 L [facility] ([facility]) Fev6-Pre 3.08 L [facility] ([facility]) Uxz6knx-%Pred-Pre 99 % [facility] ([facility]) Rrd0rzg-Krc 76 % [facility] ([facility]) Iwt4vvr-Pmrz 76 % [facility] ([facility]) Yka1bai-RUX 67 % [facility] ([facility]) Mzs0dti-Tio 100 % [facility] ([facility]) Rnq7ylh-Futp 96 % [facility] ([facility]) Rtg3xtf-%Pred-Pre 104 % [facility] ([facility]) FEFMax-Pre 4.25 L/E/sec [facility] ([facility]) FEFMax-Pred 8.83 L/E/sec [facility] ([facility]) FEFMax-%Pred-Pre 48 L/E/sec [facility] ([facility]) FEFMax-LLN 6.71 L/E/sec [facility] ([facility]) [id number]-Jbcg 2.90 L/E/sec [facility] ([facility]) Bvg1710-Rxu 1.94 L/E/sec [facility] ([facility]) ExpTime-Pre 5.74 sec [facility] ([facility]) Sxg3676-NVW 1.43 L/E/sec [facility] ([facility]) Kvu9454-%Pred-Pre 66 L/E/sec [facility] ([facility]) Vep3rzt3-Ibtp 80 % [facility] ([facility]) Fkf2pti2-Ymd 76 % [facility] ([facility]) Abv7enz0-%Pred-Pre 95 % [facility] ([facility]) Hwl8jzm4-VTZ 71 % [facility] ([facility]) ID Date Data Source [id number] 10/06/2020 11:28:00 AM EDT [facility] ([facility]) Name Value Range Interpretation Code Description Data Jennie rce(s) Supporting Document(s) Microscopic observation [Identifier] in Unspecified specimen by Non- gynecological cytology method Laboratory test result [facility] ([facility]) SPECIMEN: FNA Right neck (lym ph node) Cytolyt received (clear) SPECIMEN ADEQUACY: Satisfactory for evaluation CATEGORIZATION: No Malignancy identified DESCRIPTIONS: Specimen consists of variable lymphocytes. COMMENTS: Hx of small cell carcinoma of lung, metasatic to lymph nodes. 10/07/2020 - [address](ASCP) 10/07/2020 0744 (Prelim) Signed Rick David MD 10/07/2020 1047 ID Date Data Source [id number] 09/22/2020 12:38:00 PM EDT [facility] ([facility]) Name Value Range Interpretation Code Description Data Jennie rce(s) Supporting Document(s) Microscopic observation [Identifier] in Unspecified specimen by Non- gynecological cytology method Laboratory test result [facility] ([facility]) SPECIMEN: FNA Left paratrache al/subcarinal lymph node Cytolyt (red) and prepared slides received SPECIMEN ADEQUACY: Satisfactory for evaluation CATEGORIZATION: Positive for Malignancy DESCRIPTIONS: Highly cellular specimen consisting of abundant medium sized cells with high N/C ratio and dispersed nuclear chromatin.Scattered lymphocytes in a background of blood noted. COMMENTS: See specimen [id number] for additional diagnostic information. 09/27/2020 - 145 Signed AISHA LANG(ASCP) 09/23/2020 0731 (Prelim) Signed MELI MONTEIRO MD 09/27/2020 1450 ID Date Data Source [id number] 09/22/2020 11:57:00 AM EDT [facility] ([facility]) Name Value Range Interpretation Code Description Data Jennie rce(s) Supporting Document(s) Surgical pathology study Laboratory test result [facility] (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 See comment. Flow cytometry: No evidence of non-Hodgkin lymphoma. CD56 positive CD45 negative population of cells is present with morphology suggestive of metastatic carcinoma. Comment: Tumor cells are positive for AE1/3, TTF-1, CD56 and synaptophysin. The immunoprofile supports metastatic neuroendocrine carcinoma. Lung primary is favored. However, metastasis from elsewhere cannot be completely ruled out. Clinical and radiological correlation is recommended. 09/27/2020 - 150 CLINICAL DIAGNOSIS Enlarged lymph nodes 09/23/2020 - 07 GROSS DIAGNOSIS Received is fine-needle aspiration left paratracheal/subcarinal lymph node for cell block. -OA 09/23/2020 - 0954 Signed MELI MONTEIRO MD 09/27/2020 1504 ID Date Data Source [id number] 09/22/2020 10:32:00 AM EDT [facility], ) Name Value Range Interpretation Code Description Data Jennie rce(s) Supporting Document(s) Blood Urea Nitrogen 4 mg/dL 7-18 Below low [facility] Glucose, Fasting 72 mg/dL 70-100 Normal (applies to non-numeric results) [facility] ([facility], ) Creatinine For GFR 0.65 mg/dL 0.70-1.30 Below low normal [facility] ([facility]) Glomerular Filtration Rate Laboratory test result Normal (applies to non- numeric results) [facility] ([facility], ) <content>Units are mL/min/1.73 m2</content>
<content></content>
<content>Chronic Kidney Disease Staging per NKF:</content>
<content></content>
<content>Stage I & II GFR >=60 Normal to Mildly Decreased</content>
<content>Stage III GFR 30- 59 Moderately Decreased</content>
<content>Stage IV GFR 15-29 Severely Decreased</content>
<content>Stage V GFR <15 Very Little GFR Left</content>
<content>ESRD GFR <15 on CURRENCY EXAMINER</content>
<content></content> Sodium Level 126 meq/L 136-145 Below low normal [facility] ([facility], ) Potassium Serum 3.8 meq/L 3.5-5.1 Normal (applies to non-numeric results) [facility] ([facility], ) Chloride Level 91 meq/L 98-107 Below low normal [facility] ([facility]) Carbon Dioxide Level 27 meq/L 21-32 Normal (applies to non-num buddy results) [facility] ([facility], ) Anion Gap 8 meq/L 8-16 Normal (applies to non-numeric resul ts) [facility] ([facility]) Calcium Level 9.5 mg/dL 8.5-10.1 Normal (applies to non-numeric re sults) [facility] ([facility]) ID Date Data Source [id number] 09/22/2020 10:32:00 AM EDT [facility] ([facility]) Name Value Range Interpretation Code Description Data Jennie rce(s) Supporting Document(s) White Blood Count 3.4 10 4.0-10.0 Below low normal [facility] ([facility]) Red Blood Count 4.55 10 4.30-6.10 Normal (applies to non-numeric results) [facility]) Hemoglobin 16.4 g/dL 13.5-17.5 Normal (applies to non-numeric resul ts) [facility] ([facility]) Hematocrit 45.1 % 42.0-52.0 Normal (applies to non-numeric resul ts) [facility]) Mean Corpuscular Volume 99.1 fl 80.0-96.0 Above high normal [facility] ([facility]) Mean Corpuscular Hemoglobin 36.0 pg 27.0-33.0 Above high normal [facility] ([facility]) Mean Corpuscular HGB Conc 36.4 g/dL 32.0-36.5 Normal (applies to non-numeric results) [facility] ([facility]) Nucleated Red Blood Cell % 0.0 % 0-0 Normal (applies to n on-numeric results) [facility] ([facility]) Red Cell Distribution Width 12.8 % 11.5-14.5 Norm al (applies to non-numeric results) [facility] ([facility]) Platelet Count, Automated 162 10 150-450 Normal (applies to non-numeric results) [facility]) ID Date Data Source [id number] 09/24/2020 02:53:00 PM EDT [facility] Hematopathology ReportName: Rico POWELLMRN: [id number] Number: [id number] Date: 09/22/2020 00:00Received Date: 09/23/2020 14:00Physician(s): ADJMELI COBIAN MD ADJAPONG, OPOKU, MDCopy To:[facility]) ReceivedA: Fine Needle Aspiration, Flow Cytometry; Received FNA ofparatracheal/subcarinal LN in RPMIClinical HistoryEnlarged lymph nodes, rule out lymphoma.TEST REQUESTED/PERFORMED: Flow cytometry analysis DiagnosisFlow cytometry of left paratracheal/subcarinal lymph node FNA: No evidenceof non- Hodgkin lymphoma. CD56 positive CD45 negative population of cellsis present with morphology suggestive of metastatic carcinoma. Excisionalbiopsy is necessary for final diagnosis. Selam Matthews MD ; Hematopathology FellowElectronically Signed By TIMMY ROBERTS M.D. Attending Pathologist 114:53:34The attending pathologist named above attests that he/she has personallyreviewed the relevant preparation(s) for the specimen(s) and rendered thefinal diagnosis. ProceduresFlow Cytometry Date Ordered:09/23/2020 Status: Signed Out09/24/2020 InterpretationA cytospin shows: cohesive large clusters and groups of medium sized cellswith high N/C ratio, dispersed nuclear chromatin and nuclear molding. Afew scattered lymphocytes are also present.Lymphoid Panel: [id number] following markers were assayed: CD45 (gate), CD2, CD3, CD4, CD5, CD7,CD8, CD10, CD11c, CD19, CD20, CD22, CD23, CD25, CD38, CD56, CD57, CD103,[place], Lambda, and FMC7.#events: [id number]: Routinely a minimum of 50,000 events are collected in each paneltube. Due to sample cellularity and/or processing this number was notachievable for this sample.Viability: 70%NOTE: Results are based on a sample that was partially compromised due tothe presence of greater than 20% non-viable leukocytes.Flow Cytometry Differential (CD45/SSC)Lymphocyte [place]: 42%CD45 dim [place]: 0%Monocyte [place]: 1%Granulocyte [place]: 2%Nucleated/Erythroid [place]: 36%The lymphocyte gate showsB-cells (CD19): 12%[place]/Lambda Ratio: 1.3T-cells (CD3): 75%NK-cells (CD3- /CD56+): 4%CD4/CD8 Ratio: 1.1Results: (expressed as % of lymphocyte gate)T-cell Markers: CD2 = 79, CD3 = 75, CD3/CD4 = 40, CD3/CD8 = 35, CD5 = 82,CD7 = 73, CD3/57 = 5B-cell markers: [place] = 5, Lambda = 4, CD19 = 11, CD20 = 16, CD19/10 = 1,CD19/CD5 = 0, CD38/CD20 = 13, CD22 = 14, CD19/CD23 = 3, FMC7 = 3Light chain as % of B-Cells: CD19/[place] = 44, CD19/Lambda = 31CD19/CD5/[place] = 1, CD19/CD5/Lambda = 1CD19/CD10/[place] = 2, CD19/CD10/Lambda = 1CD38 on CD19/5 positive cells: 77%NK cell Markers: CD56 = 41, CD57 = 4Other Markers: CD25 = 45, CD103 = 32, CD11c = 20, CD103/CD11c = 6,CD103/25 = 8, CD103/22 = 0 CD10 = 2, CD38 = 72CD45 dim gate: CD56 = 62.78%Results-CommentsLymphocytes consist predominantly of T cells with normal expression of panT-cell markers and a normal CD4/CD8 ratio, normal proportions of NK andcytotoxic T connor, and polyclonal B cells.A CD45 negative population of cells (62.78% of cells) is present andexpressing CD56.Procedure Electronically Signed By:TIMMY ROBERTS M.D.09/24/2020 This report may include one or more immunohistochemical stain/fluorochromeconjugated monoclonal antibody results that use analyte specific reagents.All positive and negative controls have been reviewed by the attendingpathologist and are satisfactory. The tests were developed and theirperformance characteristics determined by [facility] Pathology departmen t.They have not been cleared or approved by the [place] Food and DrugAdministration. The FDA has determined that such clearance or approval isnot necessary. Name Value Range Interpretation Code Description Data Jennie rce(s) Supporting Document(s) ID Date Data Source [id number] 09/18/2020 10:45:00 AM EDT [facility] Name Value Range Interpretation Code Description Data Jennie rce(s) Supporting Document(s) SARS coronavirus 2 RNA Not Detected [place] This lab was ordered by [facility] and reported by [facility]. ID Date Data Source [id number] 09/09/2020 07:08:00 AM EST [facility]) Name Value Range Interpretation Code Description Data Jennie rce(s) Supporting Document(s) Inr 0.92 Normal (applies to non-numeric resul ts) [facility] ([facility]) THERAPUTIC HUMAN INR VALUES INDICATIONS NORMAL RANGES PROPHYLAXIS/TREATMENT OF: VENOUS THROMBOSIS 2.0-3.0 PULMONARY EMBOLISM 2.0-3.0 PREVENTION OF SYSTEMIC EMBOLISM FROM: TISSUE HEART VALVES 2.0-3.0 ACUTE MYOCARDIAL INFARCTION 2.0-3.0 VALVULAR HEART DISEASE 2.0-3.0 ATRIAL FIBRILLATION 2.0-3.0 MECHANICAL VALVES(HIGH RISK) 2.5-3.5 RECURRENT MYOCARDIAL INFARCTION 2.5-3.5 Prothrombin Time 12.5 s 12.5-14.3 Normal (applies to non-numeric results) [facility]) Partial Thromboplastin Time 30.1 s 24.2-38.5 Norm al (applies to non-numeric results) [facility]) ID Date Data Source [id number] 09/09/2020 07:08:00 AM EST [facility]) Name Value Range Interpretation Code Description Data Jennie rce(s) Supporting Document(s) Aspergillus Fumigatus [place] Laboratory test result Normal (applies to non- numeric results) [facility] ([facility]) Aspergillus Niger [place] Laboratory test result Nor mal (applies to non-numeric results) [facility] ([facility]) Aspergillus Flavus [place] Laboratory test result No rmal (applies to non-numeric results) [facility]) ID Date Data Source [id number] 09/09/2020 07:08:00 AM EST [facility]) Name Value Range Interpretation Code Description Data Jennie rce(s) Supporting Document(s) Histoplasmosis Antibody Laboratory test result N ormal (applies to non-numeric results) [facility]) INTERPRETIVE INFORMATION: Histoplasma sp p. Antibodies by Immunodiffusion The immunodiffusion test can detect precipitins to specific Histoplasma protein antigens (M and H). The M band often appears first and may occur without the H band. M precipitin is found in about 70 percent of both acute and chronic histoplasmosis cases. Both M and H occur together in only about 10 percent of patients. REFERENCE RANGE: None Detected Blastomyces Antibody Level Laboratory test result Normal (applies to non- numeric results) [facility] ([facility], ) Coccidioides sp Ab [Units/volume] in Serum 0.4 IV Normal (applies to non- numeric results) [facility]) INTERPRETIVE INFORMATION: Coccidioides A ntibody, Ig.9 IV or less: Negative - No signif icant level of Coccidioides IgG antibody detected. 1.0 - 1.4 IV: Equivocal - Question able presence of Coccidioides IgG antibody detected. Repeat testing in 10-14 days may be helpful. 1.5 IV or greater: Positive - Presence of IgG antibody to Coccidioides detected, suggestive of current or past infection. IgG antibody usually appears by the third week of infection and may persist for years. Both tube precipitin (TP) and CF antigens are represented in the [facility] tests. Cryptococcus sp Ag [Presence] in Serum by Immunoassay Laboratory test result Normal (applies to non-numeric results) [facility], ) Performed at: [address] [id number] Document Design Specialist: Alisia Olguin MD, Phone: [phone] Performed at: [employer] [place] [id number] Document Design Specialist: Funmilayo Echols MD, Phone: [phone] ID Date Data Source [id number] 09/09/2020 07:08:00 AM EST [facility]) Name Value Range Interpretation Code Description Data Jennie rce(s) Supporting Document(s) Hemoglobin 15.8 g/dL 13.5-17.5 Normal (applies to non-numeric resul ts) [facility] ([facility]) White Blood Count 3.5 10 4.0-10.0 Below low normal [facility]) Red Blood Count 4.39 10 4.30-6.10 Normal (applies to non-numeric results) [facility]) Hematocrit 43.7 % 42.0-52.0 Normal (applies to non-numeric resul ts) [facility] ([facility]) Mean Corpuscular HGB Conc 36.2 g/dL 32.0-36.5 Normal (applies to non-numeric results) [facility] ([facility]) Mean Corpuscular Volume 99.5 fl 80.0-96.0 Above high normal [facility] ([facility]) Mean Corpuscular Hemoglobin 36.0 pg 27.0-33.0 Above high normal [facility] ([facility]) Platelet Count, Automated 121 10 150-450 Below low normal [facility] ([facility]) Red Cell Distribution Width 12.7 % 11.5-14.5 Norm al (applies to non-numeric results) [facility] ([facility]) [place] % 13.1 % 2.0-8.0 Above high normal [facility] ([facility]) Neutrophils % 59.2 % 36.0-66.0 Normal (applies to non-numeric re sults) [facility] ([facility]) Lymph % 19.1 % 24.0-44.0 Below low normal [facility] ( [facility]) Eos % 6.0 % 0.0-3.0 Above high normal [facility] ([facility]) Baso % 1.7 % 0.0-1.0 Above high normal [facility] ([facility]) Immature Granulocyte % 0.9 % 0-3.0 Normal (applies to non-n umeric results) [facility] ([facility]) Nucleated Red Blood Cell % 0.0 % 0-0 Normal (applies to n on-numeric results) [facility] ([facility]) Neutrophils # 2.1 10 1.5-8.5 Normal (applies to non-numeric re sults) [facility] ([facility]) Lymph # 0.7 10 1.5-5.0 Below low normal [facility] ( [facility]) [place] # 0.5 10 0.0-0.8 Normal (applies to non-numeric resul ts) [facility] ([facility]) Baso # 0.1 10 0.0-0.2 Normal (applies to non-numeric resul ts) [facility]) Eos # 0.2 10 0.0-0.5 Normal (applies to non-numeric resul ts) [facility] ([facility]) ID Date Data Source [id number] 09/09/2020 07:08:00 AM EST [facility] ([facility]) Name Value Range Interpretation Code Description Data Jennie rce(s) Supporting Document(s) Blood Urea Nitrogen 3 mg/dL 7-18 Below low normal [facility] ([facility]) Glucose, Fasting 75 mg/dL 70-100 Normal (applies to non-numeric results) [facility] ([facility]) Glomerular Filtration Rate Laboratory test result Normal (applies to non- numeric results) [facility] ([facility]) <content>Units are mL/min/1.73 m2</content>
<content></content>
<content>Chronic Kidney Disease Staging per NKF:</content>
<content></content>
<content>Stage I & II GFR >=60 Normal to Mildly Decreased</content>
<content>Stage III GFR 30- 59 Moderately Decreased</content>
<content>Stage IV GFR 15-29 Severely Decreased</content>
<content>Stage V GFR <15 Very Little GFR Left</content>
<content>ESRD GFR <15 on CURRENCY EXAMINER</content>
<content></content> Creatinine For GFR 0.73 mg/dL 0.70-1.30 Normal (applies to non -numeric results) [facility] ([facility]) Potassium Serum 4.0 meq/L 3.5-5.1 Normal (applies to non-numeric results) [facility] ([facility]) Sodium Level 123 meq/L 136-145 Below low normal [facility] ([facility]) Carbon Dioxide Level 27 meq/L 21-32 Normal (applies to non-num buddy results) [facility] ([facility]) Chloride Level 89 meq/L 98-107 Below low normal [facility] ([facility]) Anion Gap 7 meq/L 8-16 Below low normal [facility] ( [facility]) Calcium Level 9.1 mg/dL 8.5-10.1 Normal (applies to non-numeric re sults) [facility] ([facility]) ID Date Data Source [id number] 08/31/2020 09:18:00 AM EST [facility] ([facility]) Name Value Range Interpretation Code Description Data Jennie rce(s) Supporting Document(s) PDFReport Laboratory test result [facility] ([facility]) FVC-Pred 4.43 L [facility] ([facility]) FVC-Pre 3.71 L [facility] ([facility]) FVC-%Pred-Pre 83 L [facility] ([facility]) Fev1-Pred 3.40 L [facility] ([facility]) FVC-LLN 3.57 L [facility] ([facility]) Fev1-Pre 2.66 L [facility] ([facility]) Fev1-%Pred-Pre 78 L [facility] ([facility]) Fev1-LLN 2.68 L [facility] ([facility]) Fev6-Pred 4.24 L [facility] ([facility]) Fev6-Pre 3.71 L [facility] ([facility]) Fev6-%Pred-Pre 87 L [facility] ([facility]) Fev6-LLN 3.41 L [facility] ([facility]) Qfn4ojk-Imzq 77 % [facility] ([facility]) Fem1lsn-Kjv 72 % [facility] ([facility]) Tyf9sdh-%Pred-Pre 93 % [facility] ([facility]) Wjz0dax-OUF 67 % [facility] ([facility]) Bjc4pvm-Bywz 96 % [facility] ([facility]) Gbb3pec-Exe 100 % [facility] ([facility]) Cyp1bzs-%Pred-Pre 104 % [facility] ([facility]) FEFMax-Pred 8.90 L/E/sec [facility] ([facility]) FEFMax-Pre 3.92 L/E/sec [facility] ([facility]) FEFMax-%Pred-Pre 44 L/E/sec [facility] ([facility]) FEFMax-LLN 6.77 L/E/sec [facility] ([facility]) [id number]-Mlzx 2.95 L/E/sec [facility] ([facility]) Rww7405-%Pred-Pre 72 L/E/sec [facility] ([facility]) Qrn0453-Zya 2.14 L/E/sec [facility] ([facility]) Thk9219-TEH 1.48 L/E/sec [facility] ([facility]) ExpTime-Pre 5.91 sec [facility] ([facility]) Ehe2oqf2-Tut 72 % [facility] ([facility]) Yeb5jof0-Jkmw 80 % [facility] ([facility]) Xyw0rmj0-%Pred-Pre 89 % [facility] ([facility]) Ynd5qma0-QKM 71 % [facility] ([facility]) Procedure Social History Code Duration Value Status Description Data Source(s ) Smoking 03/01/2021 12:00:00 AM EDT Patient is a former smoker completed Patient is a former smoker [facility]) Smoking 12/20/2020 12:00:00 AM EDT Former Smoker completed Former Smoker eCW1 ([facility]) Smoking 10/01/2020 12:00:00 AM EDT Former Smoker completed Former Smoker eCW1 ([facility]) Vital Signs ID Date Data Source UNK Name Value Range Interpretation Code Description Data Source(s) Body height 67 [in_i] 67 [in_i] [facility] ([facility]) 5'7" Body weight 121.12 [lb_av] 121.12 [lb_av] [facility] ([facility]) Body weight 54.942 kg 54.942 kg [facility] ([facility]) Body surface area Derived from formula 1.63 m2 1.63 m2 [facility] ([facility]) Body mass index (BMI) [Ratio] 19.0 kg/m2 19.0 k g/m2 [facility] ([facility]) [place] body weight 148 [lb_av] 148 [lb_av] [facility] ([facility]) Systolic blood pressure 142 mm[Hg] 142 mm[Hg] [facility] Diastolic blood pressure 80 mm[Hg] 80 mm[Hg] [facility] ([facility]) Heart rate 97 /min 97 /min [facility] ([facility]) Oxygen saturation in Arterial blood by Pulse oximetry 99 % 99 % [facility] ([facility]) Body height 67 [in_i] 67 [in_i] [facility] ([facility]) 5'7" Body weight 112.25 [lb_av] 112.25 [lb_av] [facility] ([facility]) Body mass index (BMI) [Ratio] 17.6 kg/m2 17.6 k g/m2 [facility] ([facility]) [place] body weight 148 [lb_av] 148 [lb_av] [facility] ([facility]) Body weight 50.917 kg 50.917 kg [facility] ([facility]) Body surface area Derived from formula 1.58 m2 1.58 m2 [facility] ([facility]) Body height 67 [in_i] 67 [in_i] [facility] ([facility]) 5'7" Body weight 110.38 [lb_av] 110.38 [lb_av] [facility] ([facility]) Body mass index (BMI) [Ratio] 17.3 kg/m2 17.3 k g/m2 [facility] ([facility]) [place] body weight 148 [lb_av] 148 [lb_av] [facility] ([facility]) Body weight 50.066 kg 50.066 kg [facility] ([facility]) Body surface area Derived from formula 1.57 m2 1.57 m2 [facility] ([facility]) Body weight 111 [lb_av] 111 [lb_av] eCW1 ([facility]) Body height 67 [in_i] 67 [in_i] eCW1 ([facility]) Body mass index (BMI) [Ratio] 17.38 kg/m2 17.38 kg/m2 eCW1 ([facility]) Heart rate 106 /min 106 /min eCW1 ([facility]) Respiratory rate 18 /min 18 /min eCW1 ([facility]) Body temperature 99.3 [degF] 99.3 [degF] eCW1 ( [facility]) Systolic blood pressure 122 mm[Hg] 122 mm[Hg] e CW1 ([facility]) Diastolic blood pressure 70 mm[Hg] 70 mm[Hg] eCW1 ([facility]) Body weight 52.618 kg 52.618 kg [facility] ([facility]) Body height 67 [in_i] 67 [in_i] [facility] ([facility]) 5'7" Body weight 116.00 [lb_av] 116.00 [lb_av] [facility] ([facility]) Body mass index (BMI) [Ratio] 18.2 kg/m2 18.2 k g/m2 [facility] ([facility]) [place] body weight 148 [lb_av] 148 [lb_av] [facility] ([facility]) Body surface area Derived from formula 1.60 m2 1.60 m2 [facility] ([facility]) Body height 67 [in_i] 67 [in_i] [facility] ([facility]) 5'7" Body weight 116.00 [lb_av] 116.00 [lb_av] [facility] ([facility]) Body mass index (BMI) [Ratio] 18.2 kg/m2 18.2 k g/m2 [facility] [place] body weight 148 [lb_av] 148 [lb_av] [facility] ([facility]) Body weight 52.618 kg 52.618 kg [facility] ([facility]) Body surface area Derived from formula 1.60 m2 1.60 m2 [facility] ([facility]) Body weight 120 [lb_av] 120 [lb_av] eCW1 ([facility]) Body height 67 [in_i] 67 [in_i] eCW1 ([facility]) Body mass index (BMI) [Ratio] 18.79 kg/m2 18.79 kg/m2 eCW1 ([facility]) Heart rate 114 /min 114 /min eCW1 ([facility]) Respiratory rate 18 /min 18 /min eCW1 ([facility]) Body temperature 98.1 [degF] 98.1 [degF] eCW1 ( [facility]) Systolic blood pressure 130 mm[Hg] 130 mm[Hg] e CW1 ([facility]) Diastolic blood pressure 72 mm[Hg] 72 mm[Hg] eCW1 ([facility]) Body mass index (BMI) [Ratio] 19.0 kg/m2 19.0 k g/m2 [facility]) [place] body weight 148 [lb_av] 148 [lb_av] [facility] ([facility]) Systolic blood pressure 160 mm[Hg] 160 mm[Hg] [facility] ([facility]) Diastolic blood pressure 92 mm[Hg] 92 mm[Hg] [facility]) Heart rate 97 /min 97 /min [facility] ([facility]) Oxygen saturation in Arterial blood by Pulse oximetry 99 % 99 % [facility] ([facility]) Body temperature 97.8 [degF] 97.8 [degF] [facility] ([facility]) Body height 67 [in_i] 67 [in_i] [facility] ([facility]) 5'7" Body weight 121.12 [lb_av] 121.12 [lb_av] [facility] ([facility]) Body weight 54.942 kg 54.942 kg [facility] ([facility]) Body surface area Derived from formula 1.63 m2 1.63 m2 [facility] ([facility]) Body height 67 [in_i] 67 [in_i] [facility] ([facility]) 5'7" Body surface area Derived from formula 1.63 m2 1.63 m2 [facility] ([facility]) Body weight 121.00 [lb_av] 121.00 [lb_av] [facility] ([facility]) Body mass index (BMI) [Ratio] 18.9 kg/m2 18.9 k g/m2 [facility] ([facility]) [place] body weight 148 [lb_av] 148 [lb_av] [facility] ([facility]) Body weight 54.886 kg 54.886 kg [facility] ([facility]) Systolic blood pressure 142 mm[Hg] 142 mm[Hg] [facility] ([facility]) Diastolic blood pressure 90 mm[Hg] 90 mm[Hg] [facility] ([facility]) Heart rate 83 /min 83 /min [facility] ([facility]) Oxygen saturation in Arterial blood by Pulse oximetry 99 % 99 % [facility] ([facility]) Body temperature 99.0 [degF] 99.0 [degF] [facility] ([facility]) Body height 67 [in_i] 67 [in_i] [facility] ([facility]) 5'7" Body weight 121.25 [lb_av] 121.25 [lb_av] [facility] ([facility]) Body mass index (BMI) [Ratio] 19.0 kg/m2 19.0 k g/m2 [facility] ([facility]) [place] body weight 148 [lb_av] 148 [lb_av] [facility] ([facility]) Body weight 54.999 kg 54.999 kg [facility] ([facility]) Body surface area Derived from formula 1.63 m2 1.63 m2 [facility] ([facility]) Body height 67 [in_i] 67 [in_i] [facility] ([facility]) 5'7" Body weight 125.00 [lb_av] 125.00 [lb_av] [facility] ([facility]) Body mass index (BMI) [Ratio] 19.6 kg/m2 19.6 k g/m2 [facility] ([facility]) [place] body weight 148 [lb_av] 148 [lb_av] [facility] ([facility]) Body weight 56.700 kg 56.700 kg [facility] ([facility]) Body surface area Derived from formula 1.66 m2 1.66 m2 [facility] ([facility]) Body weight 125.00 [lb_av] 125.00 [lb_av] [facility] ([facility]) Body weight 56.700 kg 56.700 kg [facility] ([facility])
[2021-06-08 15:45] VITALS: BP 183/91
--- NOTE | 2021-06-15 11:07 | RO ---
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 PROCEDURE PERFORMED: Biopsy of the left lateral oral tongue. SURGEON: Jude Vasquez MD. DOG FOOD DOUGH MIXER: ANESTHESIA: General. CLINICAL PREAMBLE: This 55-year-old man has had neoplastic lesion removed from the oropharynx as well as a malignant lesion of the oropharynx treated with radiation therapy. Presented to the office complaining of new lesion on the left lateral oral tongue. The area of the tongue is tender on palpation, and patient could not tolerate manipulation or biopsy in the office. As such, management options including biopsy of the lesion of the left lateral oral tongue in the OR have been discussed. Patient understood and consented to the procedure. OR NARRATION: Patient was identified in preoperative holding and brought to the operating room in stable condition. In the supine position on the operating table, patient received general anesthesia followed by orotracheal intubation without incident. Patient was prepped and draped in the usual fashion for the procedure. The tongue was retracted rightward to expose the left lateral oral tongue. Lesion was noted. Using the 4 mm round punch biopsy forceps, three areas that represented the area of the lesion were biopsied. Hemostasis was achieved. At the end of the procedure instrument and sponge counts were correct. No complications encountered. Estimated blood loss was less than 10 mL. General anesthesia was reversed, and the patient was extubated and brought to recovery unit in stable condition.
== END | disposition home or self-care (01) ==
LOC: M SDC 09:07
PROVIDERS: ATTEND Otolaryngology
DX: C02.1 Malignant neoplasm of border of tongue (principal); K12.30 Oral mucositis (ulcerative), unspecified; R12 Heartburn; I65.23 Occlusion and stenosis of bilateral carotid arteries; J44.9 Chronic obstructive pulmonary disease, unspecified; R06.83 Snoring; Z87.891 Personal history of nicotine dependence; Z88.5 Allergy status to narcotic agent; Z92.21 Personal history of antineoplastic chemotherapy; Z92.3 Personal history of irradiation; Z79.899 Other long term (current) drug therapy; Z85.818 Personal history of malignant neoplasm of other sites of lip, oral cavity, and pharynx
CPT/HCPCS: 41105; 88305; 88342; J0131; J1100; J2250; J2405; J3010; U0002

== ENCOUNTER → 2021-06-13 | Outpatient (CLI) | payer BC ==
[~2021-06-13] MED LIST changes: -ACETAMINOPHEN 1000MG 100ML IV BTL (OFIRMEV) (J0131 PER 10MG) As Ordered ONE; -ESMOLOL INJ 100MG/10ML VIAL As Ordered ONE; +ISOVUE-370 76% 100ML VIAL As Ordered ONE; -LIDOCAINE 2% 100MG/5ML SDV (FOR ANES.) As Ordered ONE; -LIDOCAINE W/EPINEPHRINE 1% 20ML VIAL As Ordered ONE; -LR 1,000 ML IV ONE; -LR 1,000 ML IV SCH; -MIDAZOLAM INJ 2MG/2ML VIAL (J2250 PER 1MG) As Ordered ONE; -ONDANSETRON 4MG/2ML VIAL As Ordered ONE; -ONDANSETRON 4MG/2ML VIAL IV PRN; -PHENYLephrine 500MCG 5ML (100MCG/ML) SYRINGE As Ordered ONE; -ROCURONIUM BROMIDE 50 MG/5 ML VIAL As Ordered ONE; -SUGAMMADEX SODIUM 500 MG/5 ML VIAL (BRIDION) As Ordered ONE; -dexameTHASONE 4 MG/ML 1ML VIAL (J1100 PER 1MG) As Ordered ONE; -fentaNYL 100 MCG/2 ML INJECTION (J3010) As Ordered ONE; -fentaNYL 100 MCG/2 ML INJECTION (J3010) IV PRN; -propofoL 200 MG/20 ML VIAL As Ordered ONE
--- NOTE | 2021-06-13 18:53 | REPVR ---
PROCEDURE INFORMATION: Exam: CT Angiography Neck With Contrast Exam date and time: 06/13/2021 5:36 PM Age: 55 years old Clinical indication: Condition or disease; Occlusion or stenosis of cerebral arteries TECHNIQUE: Imaging protocol: Computed tomography angiography of the neck with contrast. 3D rendering (Not supervised by radiologist): MIP and/or 3D reconstructed images were created by the technologist. Radiation optimization: All CT scans at this facility use at least one of these dose optimization techniques: automated exposure control; mA and/or kV adjustment per patient size (includes targeted exams where dose is matched to clinical indication); or iterative reconstruction. Contrast material: ISOVUE 370; Contrast volume: 100 ml; Contrast route: INTRAVENOUS (IV); COMPARISON: 1. CT Neck with contrast 04/28/2021 10:33 AM 2. PT PET/CT Skull/mid thigh 08/23/2020 11:38:26 AM FINDINGS: Tubes, catheters and devices: There is a right chest port. Right common carotid artery: No stenosis. No dissection or occlusion. Right internal carotid artery: Proximal right ICA predominantly calcified atherosclerosis causing moderate approximate 50% stenosis. Right external carotid artery: Calcified and noncalcified atherosclerosis at the origin of the right ECA without contribution to significant stenosis. Left common carotid artery: No stenosis. No dissection or occlusion. Left internal carotid artery: Proximal left ICA calcified and noncalcified atherosclerosis causing mild, approximate 25% stenosis. Left external carotid artery: Calcified and noncalcified atherosclerosis at the origin of the left ECA causing mild stenosis. Right vertebral artery: No stenosis. No dissection or occlusion. Left vertebral artery: No stenosis. No dissection or occlusion. Oropharynx: Right oropharyngeal and hypopharyngeal mucosal space thickening is again demonstrated which may reflect post treatment change. Prevertebral and retropharyngeal tissue: Mild retropharyngeal edema. No evidence of abscess. Lymph nodes: There is a new 1.5 x 1.5 cm prevascular lymph node, image 15 of series 401. This is nonspecific. Follow-up is recommended. Bones/joints: No acute fracture. Lungs: The lung apices demonstrate pleural and parenchymal scarring. The lung apices appear emphysematous. Other findings: Suggestion of a defect in the left oral tongue. IMPRESSION: 1. A new mediastinal prevascular lymph node measures 1.5 cm. This patient has a known history of malignancy. Follow-up is recommended. 2. No acute vascular findings in the neck. 3. Moderate, approximate 50% right ICA stenosis. 4. Mild, approximate 25% left ICA stenosis. 5. The vertebral arteries are patent without stenoses. REFERENCES: NASCET CRITERIA. The degree of internal carotid artery stenosis is based on NASCET criteria. Normal is no stenosis. Mild is less than 50% stenosis. Moderate is 50-69% stenosis. Severe is 70% to 99% stenosis. Total occlusion is no detectable patent lumen. Electronically signed by: Claudia Sharma On 06/13/2021 18:52:50 PM
== END ==
LOC: M RAD 17:19
PROVIDERS: ATTEND Physician Assistant Medical
DX: Z01.818 Encounter for other preprocedural examination (principal); I65.23 Occlusion and stenosis of bilateral carotid arteries
CPT/HCPCS: 70498; Q9967

== ENCOUNTER → 2021-06-20 | Outpatient (CLI) | payer BC ==
[~2021-06-20] MED LIST changes: -ISOVUE-370 76% 100ML VIAL As Ordered ONE; +PROHANCE 279.3MG/ML 15ML VIAL As Ordered ONE
--- NOTE | 2021-06-21 22:22 | REPVR ---
PROCEDURE INFORMATION: Exam: MR Head Without and With Contrast Exam date and time: 06/20/2021 6:22 PM Age: 55 years old Clinical indication: Screening exam; Additional info: Malignant neoplasm of lower lobe, R/O mets TECHNIQUE: Imaging protocol: MR of the head without and with intravenous contrast. Contrast material: PROHANCE; Contrast volume: 11 ml; Contrast route: INTRAVENOUS (IV); COMPARISON: MRI-Brain W/O FOLL BY WITH 02/07/2021 11:18 AM FINDINGS: Brain: Mild nonspecific T2/FLAIR hyperintensities of the periventricular and deep subcortical white matter, most likely secondary to chronic small vessel ischemic change. No intracranial hemorrhage or extra-axial fluid collection. No evidence of mass effect or midline shift. No restricted diffusion to suggest acute infarct. Cerebral ventricles: No ventriculomegaly. Bones/joints: Unremarkable. Paranasal sinuses: Normal as visualized. No acute sinusitis. Mastoid air cells: No mastoid effusion. Orbital cavity: Unremarkable. Soft tissues: Unremarkable. IMPRESSION: 1. No acute intracranial pathology. No evidence of metastatic disease to the brain. 2. Chronic findings, as above. Electronically signed by: Fernandez Ritchie On 06/21/2021 22:22:27 PM
== END ==
LOC: M RAD 17:31
PROVIDERS: ATTEND General Practice
DX: C34.32 Malignant neoplasm of lower lobe, left bronchus or lung (principal)
CPT/HCPCS: 70553; A9576

== ENCOUNTER → 2021-06-29 | Outpatient (CLI) | payer BC ==
--- NOTE | 2021-06-22 08:49 | RADENCPD ---
Date/Time of Encounter Date of Encounter: Jun 22, 2021 Time of Encounter: 08:46 Encounter Called Tam with results of surveillance MRI brain, negative for metastases. We then discussed his newly diagnosed left lateral oral tongue SCC, his 3rd or 4th bout of a head and neck cancer, by his recount. He is to meet with head and neck surgery @ [facility] on 06/27/21. I also reviewed his recent imaging including a CT angio of the neck for concern of carotid stenosis, which shows an enlarging AP window node in the chest to 1.5 cm. Because of this enlarging node, which would require mediastinoscopy to biopsy, which in the context of his active tongue cancer is not warranted, and the need to restage him overall, I will order a PET-CT to be done ELLIOT. I will see Tam in the office next week. Tam agreed to the plan. JAMIL ALONZO MD Jun 22, 2021 08:49
[~2021-06-29] MED LIST changes: -PROHANCE 279.3MG/ML 15ML VIAL As Ordered ONE
--- NOTE | 2021-06-29 12:11 | RADONC ---
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 He completed concurrent chemoradiation 70 Gy in 35 fractions on 06/02/21 he received weekly cisplatin with this. He had a suspicious LLL nodule and mediastinal adenopathy on his response assessment PET-CT from 08/23/20. He underwent EBUS biopsy for this on 09/22/20 and pathology returned SCLC. He then completed concurrent chemoradiation 60 Gy in 30 fractions to the left lung and mediastinum on 12/07/20. He completed 4 cycles of carbo/etoposide with Dr. Spivey on 01/18/21. He subsequently declined PCI, for concern of neurocognitive sequelae. He developed a left lateral tongue lesion, he underwent biopsy on 06/15/21 which returned SCC. During pre-surgical workup he had a CT angio neck which showed an enlarged AP window LN to 1.5 cm. Diagnosis/Treatment History Oncologic History 2013 left soft palate SCC excised 2014 left tongue SCC excised 2019 developed dysphagia culminating in biopsy of the right tonsil by Dr. Vasquez on 02/10/20 which revealed SCC HPV negative. He underwent PET-CT on 02/24/20 which showed uptake in the right OPX/soft palate and right tonsillar fossa, and a single aston focus in right level II. [id number] stage III. He underwent definitive chemoradiation 70 Gy in 35 fractions completed 06/02/20 with weekly cisplatin. He had a course complicated by usual mucositis, which was conservatively managed, and thrush. He did not require PEG tube. 08/23/20 PET-CT showing CR in the HN. 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 Not conclusive for metastases. 10/26/20-12/07/20 Chemoradiation 60 Gy in 30 fractions to left lung and mediastinum 01/18/21 Completed 4 cycles of carbo-etoposide 02/07/21 MRI head negative 04/18/21 Evaluated for left tongue lesion c/b SCC 06/13/21 CT angio neck with enlarged AP window LN 1.5 cm 06/15/21 Biopsy left tongue showing SCC 06/20/21 MRI head negative, plan for PET-CT to stage tongue and eval LN in chest 06/27/21 Surgical evaluation @ [facility] ([place]) 07/14/20 Plan for EUA and biopsies of tongue @ [facility] Survivorship: Test Due Next Last result Notes TSH, T4 6m post-tx, then q1y winter 202111/23/20 TSH 2.3 Free T4 0.84 Carotid US q10 y post-tx 2029 Smoking cessation Assess annually if applicable Winter [address] q1y once CR confirmed Pending PET-CT CBC,CMP, Lipids q1y Winter 2021 Echocardiogram q10y post treatment if mediastinum treated 2029 PFTs As indicated Interval History Tam reports stable weight. Continued fatigue and pain in the mouth, left tongue and tonsillar area, no ear pain, no trismus. Feels the tongue tumor has progressed since last evaluation. Received news that he would need an extensive surgery including trach/PEG, auto bone graft and flap to excise the tongue tumor. He is unsure if he is willing to go through with this. Current Therapy Pending Stage OPX [id number] stage III SCC (remission) LLL [id number] stage IIIA SCLC (LS) Left lateral tongue [id number] pending treatment Social History: Current 1ppd smoker for 30 years Consumes 1-2 beers daily Allergies / Meds Allergies: Coded Allergies: codeine (Verified Allergy, Severe, tongue swelling, 06/08/21) Home Meds Active Scripts Lidocaine HCl (Lidocaine HCl Viscous) 100 Ml Solution, 15 ML PO QID for mouth sore pain, #100 ML 5 Refills Prov:JAMIL ALONZO MD 05/31/21 Vitamin E Acetate (Vitamin E) 1,000 Unit Capsule, 1 CAP PO DAILY, #30 CAP 3 Refills Prov:JAMIL ALONZO MD 02/09/21 Ondansetron (Ondansetron Odt) 8 Mg Tab.rapdis, 8 MG PO Q8HP PRN for NAUSEA, #30 TAB 5 Refills Prov:JAMIL ALONZO MD 01/28/21 Prochlorperazine Maleate (Prochlorperazine Maleate) 10 Mg Tablet, 1 TAB PO Q6H PRN for NAUSEA MDD 4 tabs, #30 TAB 5 Refills Use if zofran is ineffective or wears off between doses Prov:JAMIL ALONZO MD 01/28/21 Oxycodone HCl (Oxycodone HCl) 5 Mg/5 Ml Solution, 5 ML PO Q4HP PRN for esophagitis MDD 30 Milliliter(s) for 7 Days, #210 ML Prov:JAMIL ALONZO MD 12/21/20 Magic Mouthwash (First-Mouthwash Blm) 1 Ea Susp, 10 ML SSP QID PRN for esophagitis, #240 ML 5 Refills (Diphenhydramine/maalox/lidocaine 1:1:1) May compound if kit unavailable/not covered by insurance Prov:JAMIL ALONZO MD 11/08/20 Reported Medications Omeprazole (Omeprazole) 20 Mg Capsule.dr, 1 CAP PO DAILY 03/30/20 Review of Systems Review of Systems Constitutional: Reports: Fatigue, Normal appetite; Denies: Weight Loss HEENT: Reports: Dysphagia, Sore Throat; Denies: Ear Pain Skin: Denies: Rash Pulmonary: Denies: Dyspnea, Cough, Pleuritic Chest Pain Cardiovascular: Denies: Chest Pain, Edema Musculoskeletal: Reports: Back pain; Denies: Neck pain Neurological: Denies: Weakness, Numbness Psych: Reports: Mood Normal Physical Examination Vital Signs Ht 67" Wt 120.6 lbs (from 111.8 on 02/09/21) T 98.6 P 96 RR 20 BP 157/97 O2 100% Pain 3 Fatigue 5 General Exam: Alert, Cooperative, No Acute Distress Eye Exam: PERRLA, EOMI ENT EXAM: Other ENT (Oral cavity with no visible ORN BL mandibles. There is an ulcerated left tonuge lesion palpable in the lateral oral tongue remant on that side and involving the FOM, mass is firm but somewhat mobile, no trismus. Evidence of tonsillar or tongue base extenstion of tumor on palpation. ) Neck Exam: Supple; Negative: Lymphadenopathy Chest Exam: Clear to auscultation Heart Exam: Rate Normal Abdomen Exam: Soft Extremity Exam: Negative: Edema Skin Exam: Nl turgor and temperature Neuro Exam: Normal Gait, Normal Speech, Cranial Nerves 3-12 NL Psych Exam: Mental status NL Diagnostic and Laboratory Diagnostic Review Radiologic images, relevant labs and pathology reports were personally reviewed and discussed with Mr. Jordan. Assessment and Plan Impression Assessment Mr. 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 He completed concurrent chemoradiation 70 Gy in 35 fractions on 06/02/21 he received weekly cisplatin with this. He had a suspicious LLL nodule and mediastinal adenopathy on his response assessment PET-CT from 08/23/20. He underwent EBUS biopsy for this on 09/22/20 and pathology returned SCLC. He then completed concurrent chemoradiation 60 Gy in 30 fractions to the left lung and mediastinum on 12/07/20. He completed 4 cycles of carbo/etoposide with Dr. Spivey on 01/18/21. He subsequently declined PCI, for concern of ne urocognitive sequelae. He developed a left lateral tongue lesion, he underwent biopsy on 06/15/21 which returned SCC. During pre-surgical workup he had a CT angio neck which showed an enlarged AP window LN to 1.5 cm. I reviewed the notes from [facility] and Tam's own account of the visit it sounds like he needs at least a left hemiglossectomy with bone graft and flap. The plan there is to proceed with plastics consultation and DL and biopsies on 07/14/21, I encouraged Tam to proceed with the workup for this to better understand the EOD and the surgical options he has. With respect to staging, I have ordered a PET-CT, it will be done on 07/04/21, I will ensure he has a copy of the study to take to [facility] at next visit. If the AP window node is PET-CT avid, I would advocate for biopsy, given the oncologic priority recurrent SCLC would take over the tongue, which by comparison is a slower moving entity. If he needed second line therapy for SCLC such a regimen would likely serve as reasonable induction therapy for the oral tongue lesion as well, downstaging of the tongue tumor if achieved may result in wider options for treatment. From a radiation standpoint, if the extent of surgery required for the tongue cancer is not satisfactory to Tam, then I would offer chemoradiation again to the mouth with the same caveat discussed that he may well need a trach and PEG after additional chemoradiation as well. The third option of palliative treatment was broached, but Tam roundly rejected this idea at this time, which given all he has been through, I also reject this idea, knowing Tam well and his desire to continue to fight these multiple cancers. For now we agreed that he will continue through the diagnostic/consultation process with RPCI, and obtain the PET-CT which will determine next steps. Performance Status ECOG 1 Plan Proceed with RPCI workup as planned PET-CT here on 07/04/21 I will follow up with Tam by phone regarding the PET-CT results and next steps Continue viscous lidocaine and oxycodone for pain control Mr. Jordan was encouraged to call with questions or concerns in the interim period. Billing Statement Total time of [42] minutes was spent preparing for the visit [3], obtaining HPI [8], examining the patient [4], reviewing diagnostic tests [5], discussing management options [8], coordinating care [4], and writing this note [10]. JAMIL ALONZO MD Jun 29, 2021 12:11
== END ==
LOC: M ONCR 09:55
PROVIDERS: ATTEND General Practice
DX: C09.0 Malignant neoplasm of tonsillar fossa (principal); C34.32 Malignant neoplasm of lower lobe, left bronchus or lung; Z92.3 Personal history of irradiation; Z92.21 Personal history of antineoplastic chemotherapy; F17.210 Nicotine dependence, cigarettes, uncomplicated; Z88.5 Allergy status to narcotic agent; Z79.899 Other long term (current) drug therapy

== ENCOUNTER → 2021-07-18 | Outpatient (CLI) | payer BC ==
[~2021-07-18] MED LIST changes: +OMEP-173 PO; -OMEP-218 PO; -PROC10TA4 PO; +PROC10TA5 PO
== END ==
LOC: M PLARAD 11:54
PROVIDERS: ATTEND General Practice
DX: R93.89 Abnormal findings on diagnostic imaging of other specified body structures (principal); C34.32 Malignant neoplasm of lower lobe, left bronchus or lung
CPT/HCPCS: 78815; A9552

== ENCOUNTER → 2021-07-20 | Outpatient (CLI) | payer BC | LOC: M ONCR 10:11 | PROVIDERS: ATTEND General Practice | DX: C34.32 Malignant neoplasm of lower lobe, left bronchus or lung (principal); C09.0 Malignant neoplasm of tonsillar fossa ==

== ENCOUNTER → 2021-07-26 | Outpatient (CLI) | payer BC ==
[2021-07-26 11:15] LABS: ALBUMIN 3.8 GM/DL (3.2-5.2); ALT/SGPT 18 U/L (12-78); BILIRUBIN,TOTAL 0.2 MG/DL (0.2-1.0); BLOOD UREA NITROGEN 15 MG/DL (7-18); CALCIUM LEVEL 9.5 MG/DL (8.5-10.1); CARBON DIOXIDE LEVEL 30 MEQ/L (21-32); CHLORIDE LEVEL 99 MEQ/L (98-107); CREATININE FOR GFR 0.83 MG/DL (0.70-1.30); GLOMERULAR FILTRATION RATE > 60.0 (>56); GLUCOSE, FASTING 86 MG/DL (70-100); SODIUM LEVEL 133 MEQ/L (136-145); TOTAL PROTEIN 6.8 GM/DL (6.4-8.2)
== END ==
LOC: M ONCM 10:03
PROVIDERS: ATTEND General Practice
DX: C09.0 Malignant neoplasm of tonsillar fossa (principal)

== ENCOUNTER → 2021-07-27 | Outpatient (CLI) | payer BC ==
[~2021-07-27] MED LIST changes: +ISOVUE-370 76% 100ML VIAL As Ordered ONE
== END ==
LOC: M RAD 08:12
PROVIDERS: ATTEND General Practice
DX: C09.0 Malignant neoplasm of tonsillar fossa (principal); R91.1 Solitary pulmonary nodule; R59.1 Generalized enlarged lymph nodes
CPT/HCPCS: 70487; 70491; 71260; Q9967

== ENCOUNTER → 2021-07-28 | Outpatient (CLI) | payer BC ==
[~2021-07-28] MED LIST changes: -ISOVUE-370 76% 100ML VIAL As Ordered ONE
== END ==
LOC: M ONCR 02-09 12:55
PROVIDERS: ATTEND General Practice
DX: C34.32 Malignant neoplasm of lower lobe, left bronchus or lung (principal); C09.9 Malignant neoplasm of tonsil, unspecified; F17.210 Nicotine dependence, cigarettes, uncomplicated; Z79.899 Other long term (current) drug therapy; Z85.09 Personal history of malignant neoplasm of other digestive organs; Z88.5 Allergy status to narcotic agent; Z92.21 Personal history of antineoplastic chemotherapy; Z92.3 Personal history of irradiation

== ENCOUNTER → 2021-08-01 | Outpatient (RCR) | payer BC ==
[~2021-08-01] MED LIST changes: -FLUC100T PO; +FLUC100T3 PO
== END ==
LOC: M ONCR 13:56
PROVIDERS: ATTEND General Practice
DX: C34.32 Malignant neoplasm of lower lobe, left bronchus or lung (principal)

== ENCOUNTER 2021-08-12 13:45 | Outpatient (RCR) | payer BC | END 2021-08-29 | LOC: M ONCR 13:45 | PROVIDERS: ATTEND General Practice | DX: C34.32 Malignant neoplasm of lower lobe, left bronchus or lung (principal) ==

== ENCOUNTER → 2021-11-02 | Outpatient (CLI) | payer BC ==
[~2021-11-02] MED LIST changes: +GASTROGRAFIN SOLUTION 30ML (Q9963) As Ordered ONE; +ISOVUE-370 76% 100ML VIAL As Ordered ONE; +MORP1SOL4 PO
== END ==
LOC: M RAD 12:59
PROVIDERS: ATTEND Specialist
DX: C09.9 Malignant neoplasm of tonsil, unspecified (principal)

== ENCOUNTER 2021-11-20 16:38 | Emergency (ER) | payer BC ==
[~2021-11-20] VITALS: Ht 170.2 cm; Wt 54.1 kg
[~2021-11-20 16:38] MED LIST changes: -GASTROGRAFIN SOLUTION 30ML (Q9963) As Ordered ONE; -ISOVUE-370 76% 100ML VIAL As Ordered ONE
[2021-11-20] MEDS ORDERED: NS 1,000 ML IV ONE (17:15)
[2021-11-20] MEDS ORDERED: ONDANSETRON 4MG/2ML VIAL IV ONE (17:25)
[2021-11-20] MEDS ORDERED: MORPHINE 2 MG/ML 1ML VIAL IV PRN (17:25)
[2021-11-20 17:46] LABS: BASO # 0.1 10^3/uL (0.0-0.2); BASO % 1.4 % (0.0-1.0); EOS # 0.1 10^3/uL (0.0-0.5); EOS % 1.4 % (0.0-3.0); HEMATOCRIT 33.8 % (42.0-52.0); HEMOGLOBIN 11.6 g/dl (13.5-17.5); LYMPH # 0.4 10^3/uL (1.5-5.0); LYMPH % 10.6 % (24.0-44.0); MEAN CORPUSCULAR HEMOGLOBIN 31.6 pg (27.0-33.0); MEAN CORPUSCULAR HGB CONC 34.3 g/dl (32.0-36.5); MEAN CORPUSCULAR VOLUME 92.1 fl (80.0-96.0); MONO # 0.5 10^3/uL (0.0-0.8); MONO % 15.5 % (2.0-8.0); NEUTROPHILS # 2.3 10^3/uL (1.5-8.5); NEUTROPHILS % 67.1 % (36.0-66.0); PLATELET COUNT, AUTOMATED 107 10^3/uL (150-450); RED BLOOD COUNT 3.67 10^6/uL (4.30-6.10); WHITE BLOOD COUNT 3.5 10^3/uL (4.0-10.0)
[2021-11-20 18:10] LABS: ALBUMIN 2.9 GM/DL (3.2-5.2); ALT/SGPT 74 U/L (12-78); BILIRUBIN,DIRECT 0.6 MG/DL (0.0-0.2); BILIRUBIN,TOTAL 1.1 MG/DL (0.2-1.0); BLOOD UREA NITROGEN 38 MG/DL (7-18); CALCIUM LEVEL 10.2 MG/DL (8.5-10.1); CARBON DIOXIDE LEVEL 27 MEQ/L (21-32); CHLORIDE LEVEL 97 MEQ/L (98-107); CREATININE FOR GFR 1.18 MG/DL (0.70-1.30); GLOMERULAR FILTRATION RATE > 60.0 (>56); GLUCOSE, FASTING 93 MG/DL (70-100); LIPASE 109 U/L (73-393); POTASSIUM SERUM 4.4 MEQ/L (3.5-5.1); SODIUM LEVEL 136 MEQ/L (136-145); TOTAL PROTEIN 6.5 GM/DL (6.4-8.2)
[2021-11-20] MEDS ORDERED: ISOVUE-370 76% 100ML VIAL As Ordered ONE (18:41)
[2021-11-20] MEDS ORDERED: ONDA8TAB8 PO (18:53)
[2021-11-20] MEDS ORDERED: MORP20SO PO (18:53)
[2021-11-20] MEDS ORDERED: MORP-69 PO (18:53)
[2021-11-20] MEDS ORDERED: HOME MED LIST COMPLETE! XX SCH (18:55)
[2021-11-20 19:53] LABS: RSV AMPLIFICATION NEGATIVE (NEGATIVE)
[2021-11-20 22:38] VITALS: BP 109/70
[2021-11-21] MEDS ORDERED: PROC5TAB57 PO (13:43)
[2021-11-21] MEDS ORDERED: OLAN1TAB16 PO (13:43)
[2021-11-21] MEDS ORDERED: LEVO25TA5 PO (16:50)
[2021-11-22] MEDS ORDERED: LACT20EL PO (16:38)
== END 2021-11-20 23:01 | disposition home or self-care (01) ==
LOC: M ED 16:38
DX: N17.9 Acute kidney failure, unspecified (principal); C78.7 Secondary malignant neoplasm of liver and intrahepatic bile duct; C79.51 Secondary malignant neoplasm of bone; Z79.899 Other long term (current) drug therapy; Z79.890 Hormone replacement therapy; Z85.9 Personal history of malignant neoplasm, unspecified; Z88.5 Allergy status to narcotic agent; F17.210 Nicotine dependence, cigarettes, uncomplicated
CPT/HCPCS: 71045; 74178; 80048; 80076; 81001; 83605; 83690; 85025; 87040; 87631; 93005; 93041; 96374; 96375; 99285; J2270; J2405; Q9967

== ENCOUNTER → 2021-11-21 | Outpatient (CLI) | payer BC ==
[~2021-11-21] MED LIST changes: +LACT20EL PO; +LEVO25TA5 PO; +MORP20SO PO; +OLAN1TAB16 PO; +PROC5TAB57 PO
== END ==
LOC: M ONCR 12:51
PROVIDERS: ATTEND General Practice
DX: C78.00 Secondary malignant neoplasm of unspecified lung (principal); C78.7 Secondary malignant neoplasm of liver and intrahepatic bile duct; C09.9 Malignant neoplasm of tonsil, unspecified; C02.1 Malignant neoplasm of border of tongue; R11.0 Nausea; R53.83 Other fatigue; R63.4 Abnormal weight loss; R10.11 Right upper quadrant pain; K76.89 Other specified diseases of liver; Z79.811 Long term (current) use of aromatase inhibitors; Z79.891 Long term (current) use of opiate analgesic; Z79.899 Other long term (current) drug therapy; Z87.891 Personal history of nicotine dependence; Z88.5 Allergy status to narcotic agent; Z92.21 Personal history of antineoplastic chemotherapy; Z92.3 Personal history of irradiation

== ENCOUNTER 2021-11-24 19:52 | Inpatient (IN) | payer BC ==
[~2021-11-24] VITALS: Ht 175.3 cm; Wt 41.4 kg
[2021-11-24 20:50] LABS: BASO % 0.3 % (0.0-1.0); EOS % 0.2 % (0.0-3.0); HEMATOCRIT 32.9 % (42.0-52.0); HEMOGLOBIN 11.2 g/dl (13.5-17.5); LYMPH # 0.6 10^3/uL (1.5-5.0); LYMPH % 6.3 % (24.0-44.0); MEAN CORPUSCULAR HEMOGLOBIN 32.2 pg (27.0-33.0); MEAN CORPUSCULAR VOLUME 94.5 fl (80.0-96.0); MONO # 0.7 10^3/uL (0.0-0.8); MONO % 8.2 % (2.0-8.0); NEUTROPHILS # 7.5 10^3/uL (1.5-8.5); NEUTROPHILS % 83.3 % (36.0-66.0); PLATELET COUNT, AUTOMATED 132 10^3/uL (150-450); RED BLOOD COUNT 3.48 10^6/uL (4.30-6.10)
[2021-11-24] MEDS ORDERED: NS 1,000 ML IV ONE ×2 (20:50→21:05)
[2021-11-24 21:32] LABS: ALBUMIN 3.1 GM/DL (3.2-5.2); BILIRUBIN,DIRECT 0.9 MG/DL (0.0-0.2); BILIRUBIN,TOTAL 1.5 MG/DL (0.2-1.0); CALCIUM LEVEL 11.3 MG/DL (8.5-10.1); CREATININE FOR GFR 1.5 MG/DL (0.70-1.30); GLOMERULAR FILTRATION RATE 51.4 (>56); POTASSIUM SERUM 4.5 MEQ/L (3.5-5.1); THYROID STIMULATING HORMONE 26.2 uIU/ML (0.358-3.740); TOTAL PROTEIN 6.4 GM/DL (6.4-8.2)
[2021-11-24 21:42] LABS: RSV AMPLIFICATION NEGATIVE (NEGATIVE)
[2021-11-24] MEDS ORDERED: HOME MED LIST COMPLETE! XX SCH (22:20)
[2021-11-24] MEDS ORDERED: MAALOX 30 ML SUSP *UDC PO PRN (22:50)
[2021-11-24] MEDS ORDERED: MOM 30ML SUSPENSION UDC PO PRN (22:50)
[2021-11-24] MEDS ORDERED: ACETAMINOPHEN TAB 650MG DOSE (2X325MG) PO PRN (22:50)
[2021-11-25] MEDS ORDERED: MORPHINE SULFATE ORAL SOLN 10 MG/5 ML UD PO PRN (01:15)
[2021-11-25 01:53] VITALS: BP 156/95
[2021-11-25] MEDS ORDERED: ZOLEDRONIC ACID 4 MG in IV 1 EA IV ONE (02:00)
[2021-11-25] MEDS: NS 1,000 ML IV SCH ×4 (02:43→21:20)
[2021-11-25 06:00] VITALS: BP 119/70
[2021-11-25] MEDS: LEVOTHYROXINE 50MCG TABLET (0.05MG) PO SCH (06:06)
[2021-11-25 07:48] LABS: FREE T4 1.01 NG/DL (0.76-1.46)
[2021-11-25 08:23] LABS: BASO % 0.6 % (0.0-1.0); EOS % 0.1 % (0.0-3.0); HEMATOCRIT 30.5 % (42.0-52.0); HEMOGLOBIN 9.7 g/dl (13.5-17.5); LYMPH # 0.4 10^3/uL (1.5-5.0); LYMPH % 6.3 % (24.0-44.0); MEAN CORPUSCULAR HEMOGLOBIN 30.8 pg (27.0-33.0); MEAN CORPUSCULAR HGB CONC 31.8 g/dl (32.0-36.5); MEAN CORPUSCULAR VOLUME 96.8 fl (80.0-96.0); MONO # 0.5 10^3/uL (0.0-0.8); MONO % 7.7 % (2.0-8.0); NEUTROPHILS # 5.9 10^3/uL (1.5-8.5); NEUTROPHILS % 83.3 % (36.0-66.0); PLATELET COUNT, AUTOMATED 105 10^3/uL (150-450); RED BLOOD COUNT 3.15 10^6/uL (4.30-6.10)
[2021-11-25] MEDS: MORPHINE 15 MG SA TAB PO SCH ×2 (08:41→20:42)
[2021-11-25 08:42] LABS: ALBUMIN 2.5 GM/DL (3.2-5.2); ALT/SGPT 111 U/L (12-78); BILIRUBIN,TOTAL 1.1 MG/DL (0.2-1.0); BLOOD UREA NITROGEN 43 MG/DL (7-18); CALCIUM LEVEL 10.8 MG/DL (8.5-10.1); CARBON DIOXIDE LEVEL 26 MEQ/L (21-32); CHLORIDE LEVEL 114 MEQ/L (98-107); CREATININE FOR GFR 1.05 MG/DL (0.70-1.30); GLOMERULAR FILTRATION RATE > 60.0 (>56); GLUCOSE, FASTING 116 MG/DL (70-100); MAGNESIUM LEVEL 2.3 MG/DL (1.8-2.4); PHOSPHORUS LEVEL 3.6 MG/DL (2.5-4.9); POTASSIUM SERUM 4.5 MEQ/L (3.5-5.1); SODIUM LEVEL 149 MEQ/L (136-145); TOTAL PROTEIN 5.5 GM/DL (6.4-8.2)
[2021-11-25] MEDS ORDERED: ENOXAPARIN 40MG/0.4ML SYRINGE (J1650 PER 10MG) SC SCH (09:00)
[2021-11-25] MEDS ORDERED: LIDOCAINE 2% 5ML JELLY UROJET TOP PRN (10:35)
[2021-11-25 10:38] LABS: TOTAL 25(OH) VITAMIN D 17.3 NG/ML (30.0-100.0)
[2021-11-25 14:00] VITALS: BP 112/69
[2021-11-25] MEDS ORDERED: ONDANSETRON 4MG/2ML VIAL IV ONE (17:00)
[2021-11-25] MEDS ORDERED: SCOPOLAMINE 1MG TRANSDERMAL PATCH TOP PRN (18:40)
[2021-11-25] MEDS ORDERED: LORazepam 1 MG TAB PO PRN (18:40)
[2021-11-26] MEDS: LEVOTHYROXINE 50MCG TABLET (0.05MG) PO SCH (05:28)
[2021-11-26] MEDS: MORPHINE 15 MG SA TAB PO SCH (08:16)
[2021-11-26] MEDS ORDERED: MORP20SO PO (14:32)
[2021-11-26] MEDS ORDERED: MORP-69 PO (14:32)
[2021-11-26] MEDS ORDERED: LEVO50TA5 PO (14:32)
[2021-11-26] MEDS ORDERED: TRAN1DIS4 TOP (14:32)
[2021-11-26] MEDS ORDERED: ATIV1TAB7 PO (14:32)
== END 2021-11-26 16:08 | disposition hospice, home (50) | DRG 422 ==
LOC: M ED 19:52 → M ED INP 11-25 00:06 → ENRESERV 11-25 00:46 → M MSPAV 11-25 01:41
PROVIDERS: ADMIT Family Medicine; ATTEND Internal Medicine
DX: E86.0 Dehydration (principal); E43 Unspecified severe protein-calorie malnutrition; C77.9 Secondary and unspecified malignant neoplasm of lymph node, unspecified; C78.7 Secondary malignant neoplasm of liver and intrahepatic bile duct; C09.9 Malignant neoplasm of tonsil, unspecified; C79.51 Secondary malignant neoplasm of bone; E83.52 Hypercalcemia; C02.9 Malignant neoplasm of tongue, unspecified; C34.92 Malignant neoplasm of unspecified part of left bronchus or lung; Z92.3 Personal history of irradiation; Z92.21 Personal history of antineoplastic chemotherapy; R00.0 Tachycardia, unspecified; F17.200 Nicotine dependence, unspecified, uncomplicated; E03.9 Hypothyroidism, unspecified; Z20.822 Contact with and (suspected) exposure to COVID-19; Z79.891 Long term (current) use of opiate analgesic; Z79.899 Other long term (current) drug therapy; Z88.5 Allergy status to narcotic agent; Z66 Do not resuscitate; R41.82 Altered mental status, unspecified; Z51.5 Encounter for palliative care